=== PATIENT | female | born 1960 | race American Indian/Alaskan Native ===

== ENCOUNTER 2021-05-29 11:36 | Emergency (ER) | payer MEDICAID ==
[2021-05-29 12:24] VITALS: BP 140/79
--- NOTE | 2021-05-29 12:50 | Emergency Department Report ---
ED Extremity Problem HPI - General Chief complaint: Extremity Injury, Lower Stated complaint: FOOT AND ANKLE PAIN Time Seen by Provider: 05/29/21 12:45 Source: patient Mode of arrival: Ambulatory Limitations: No Limitations - History of Present Illness Initial comments: 61-year-old -[place]i female with a history of lupus presents to the emergency room for 2-week history of right lower and left lower ankle and foot pain and mild swelling to the right ankle. Patient states that she does not recall any injury or trauma. She states that the pain is worse when she walks. Patient states that the pain feels like when you hit your funny bone. Patient states she is currently on Percocet that is prescribed by her primary care provider Dr. Escalera. Patient reports she was being seen by a footwear stitcher but has not seen them since March. Patient is accompanied by retail personal banker Complaint: joint paint Onset/Timin -: week(s) Location: right, bilateral lower extremity History of Same: No -: Yes arthralgia Severity scale (0 -10): 6 Quality: other (Tingling) Consistency: intermittent Improves with: nothing Associated Symptoms: denies other symptoms - Related Data Previous Rx's Medication Instructions Recorded Last Taken Type Hydrocortisone 1% [Hydrocortisone 1 applicatio TP TID 7 Days #1 tube 07/19/19 Unknown Rx 1% CREAM] hydrOXYzine PAMOATE [Vistaril] 50 mg PO Q6HR PRN #20 capsule 07/19/19 Unknown Rx Allergies Allergy/AdvReac Type Severity Reaction Status Date / Time diphenhydramine Allergy Rash Verified 07/19/19 13:44 [From Benadryl] ED Review of Systems ROS: Stated complaint: FOOT AND ANKLE PAIN Other details as noted in HPI Comment: All other systems reviewed and negative ED Past Medical Hx - Past Medical History Hx Hypertension: Yes Hx CVA: Yes (MEMORY LOSS) Hx Diabetes: Yes Additional medical history: abd cancer- right c/w infusiport, LUPUS, ELEVATED CHOLESTEROL, HYPOTHYROIDISM - Surgical History Hx Open Heart Surgery: Yes (1997) Additional Surgical History: hysterectomy r/t cancer, , BREAST REDUCTION, TUMMY TUCK, - Social History Smoking Status: Never Smoker Substance Use Type: None - Medications Home Medications: Home Medications Medication Instructions Recorded Confirmed Last Taken Type Hydrocortisone 1% [Hydrocortisone 1 applicatio TP TID 7 Days #1 tube 07/19/19 Unknown Rx 1% CREAM] hydrOXYzine PAMOATE [Vistaril] 50 mg PO Q6HR PRN #20 capsule 07/19/19 Unknown Rx ED Physical Exam - General Limitations: No Limitations General appearance: alert, in no apparent distress - Head Head exam: Present: atraumatic, normocephalic - Eye Eye exam: Present: normal appearance - ENT ENT exam: Present: mucous membranes moist - Neck Neck exam: Present: normal inspection - Respiratory Respiratory exam: Present: normal lung sounds bilaterally. Absent: respiratory distress - Cardiovascular Cardiovascular Exam: Present: regular rate, normal rhythm. Absent: systolic murmur, diastolic murmur, rubs, gallop - GI/Abdominal GI/Abdominal exam: Present: soft, normal bowel sounds - Extremities Exam Extremities exam: Present: normal inspection, full ROM, tenderness (Bilateral), normal capillary refill. Absent: pedal edema, joint swelling, calf tenderness - Back Exam Back exam: Present: normal inspection - Neurological Exam Neurological exam: Present: alert, oriented X3 - Psychiatric Psychiatric exam: Present: normal affect, normal mood - Skin Skin exam: Present: warm, dry, intact, normal color. Absent: rash ED Course Vital Signs 05/29/21 12:21 Temperature 98.3 F Pulse Rate 108 H Respiratory 16 Rate Blood Pressure 140/79 O2 Sat by Pulse 100 Oximetry ED Medical Decision Making - Medical Decision Making 61-year-old -S[place]i female with a history of lupus presents to the emergency room for 2-week history of right lower and left lower ankle and foot pain and mild swelling to the right ankle. Patient states that she does not recall any injury or trauma. She states that the pain is worse when she walks. Patient states that the pain feels like when you hit your funny bone. Patient states she is currently on Percocet that is prescribed by her primary care provider Dr. Escalera. Patient reports she was being seen by a footwear stitcher but has not seen them since March. Patient is accompanied by retail personal banker. Discussed with patient that she should follow-up with her primary care provider I will refer her to several podiatrists. Patient verbalized understanding Critical care attestation.: If time is entered above; I have spent that time in minutes in the direct care of this critically ill patient, excluding procedure time. ED Disposition Clinical Impression: Tingling of both feet Disposition: / SELF CARE / HOMELESS Is pt being admited?: No Does the pt Need Aspirin: No Condition: Stable Instructions: Peripheral Neuropathy Additional Instructions: Please continue with your chronic pain medication and to follow-up with a clinical document improvement educator or footwear stitcher and your primary care provider. Referrals: CIRILO GARCIA DPM [Staff Physician] - 3-5 Days [facility] [Provider Group] - 3-5 Days Time of Disposition: 12:51
== END 2021-05-29 14:37 | disposition home or self-care (01) ==
LOC: ED 11:36
DX: R20.2 Paresthesia of skin (principal); Z88.8 Allergy status to other drugs, medicaments and biological substances; I10 Essential (primary) hypertension
CPT/HCPCS: 99282

== ENCOUNTER 2021-09-20 00:55 | Inpatient (IN) | payer MEDICAID ==
--- NOTE | 2021-09-20 01:39 | Emergency Department Report ---
ED Altered Mental Status HPI - General Chief Complaint: Altered Mental Status Stated Complaint: AMS Source: EMS Mode of arrival: Stretcher Limitations: No Limitations - History of Present Illness Initial Comments: This patient presented to the emergency department for evaluation of altered mental status. The patient was admitted to the hospital on 09/12/2021 with a diagnosis of acute metabolic encephalopathy, cerebral debility and weakness, hypertension, type 2 diabetes hypercalcemia hyperkalemia severe protein caloric malnutrition. According to EMS the condition was pretty much the same since she was discharged from the hospital according to the patient's family. I reviewed the patient's information it would appear that she did not fill her prescriptions MD Complaint: altered mental status, decreased responsiveness - Related Data Home Medications Medication Instructions Recorded Confirmed Last Taken AtorvaSTATin [Lipitor] 20 mg PO QHS 09/12/21 09/20/21 Unknown Fluticasone [Flonase] 1 spray BN DAILY 09/12/21 09/20/21 Unknown Gabapentin 300 mg PO BID 09/12/21 09/20/21 Unknown Insulin Aspart [Insulin Aspart 18 unit SQ TID 09/12/21 09/20/21 Unknown Flexpen] Insulin Glargine,Hum.rec.anlog 45 unit SQ QHS 09/12/21 09/20/21 Unknown [Lantus Solostar] Levothyroxine [Synthroid] 25 mcg PO QAM 09/12/21 09/20/21 Unknown Losartan [Cozaar] 100 mg PO QDAY 09/12/21 09/20/21 Unknown Omeprazole 40 mg PO DAILY 09/12/21 09/20/21 Unknown Oxybutynin [Ditropan] 5 mg PO BID 09/12/21 09/20/21 Unknown Saxagliptin HCl [Onglyza] 5 mg PO DAILY 09/12/21 09/20/21 Unknown allopurinoL [Zyloprim] 100 mg PO QDAY 09/12/21 09/20/21 Unknown hydrOXYzine PAMOATE [Vistaril] 25 mg PO HS PRN 09/12/21 09/20/21 Unknown traZODone [Desyrel] 50 mg PO QHS 09/12/21 09/20/21 Unknown Albuterol Mdi (or & Nicu Only) 1 puff IH Q6H PRN 09/14/21 09/20/21 Unknown [ProAir HFA Inhaler] Buprenorphine [Butrans] 1 each TD QWEEK 09/14/21 09/20/21 Unknown Dapagliflozin Propanediol [Farxiga] 5 mg PO QDAY 09/14/21 09/20/21 Unknown Oxycodone HCl/Acetaminophen 1 each PO Q8H PRN 09/14/21 09/20/21 Unknown [Percocet 10/325 mg] Previous Rx's Medication Instructions Recorded Last Taken Type Aspirin [Aspirin BABY CHEW TAB] 81 mg PO QDAY #30 tab.chew 09/18/21 Unknown Rx Famotidine [Pepcid] 20 mg PO BID #30 tablet 09/18/21 Unknown Rx Hydralazine HCl 50 mg PO Q8H #90 09/18/21 Unknown Rx NIFEdipine XL [Procardia Xl] 30 mg PO Q12HR #60 tablet 09/18/21 Unknown Rx predniSONE [Deltasone] 20 mg PO QDAY #14 tablet 09/18/21 Unknown Rx Allergies Allergy/AdvReac Type Severity Reaction Status Date / Time diphenhydramine Allergy Rash/Hives Verified 09/14/21 13:58 [From Benadryl] and Sores on Face ED Review of Systems ROS: Stated complaint: AMS Other details as noted in HPI Comment: Unobtainable due to pts medical conditions ED Past Medical Hx - Past Medical History Hx Hypertension: Yes Hx CVA: Yes (MEMORY LOSS) Hx Diabetes: Yes Additional medical history: abd cancer- right c/w infusiport, LUPUS, ELEVATED CHOLESTEROL, HYPOTHYROIDISM - Surgical History Hx Open Heart Surgery: Yes (1997) Additional Surgical History: hysterectomy r/t cancer, , BREAST REDUCTION, TUMMY TUCK, - Social History Smoking Status: Never Smoker - Medications Home Medications: Home Medications Medication Instructions Recorded Confirmed Last Taken Type AtorvaSTATin [Lipitor] 20 mg PO QHS 09/12/21 09/20/21 Unknown History Fluticasone [Flonase] 1 spray BN DAILY 09/12/21 09/20/21 Unknown History Gabapentin 300 mg PO BID 09/12/21 09/20/21 Unknown History Insulin Aspart [Insulin Aspart 18 unit SQ TID 09/12/21 09/20/21 Unknown History Flexpen] Insulin Glargine,Hum.rec.anlog 45 unit SQ QHS 09/12/21 09/20/21 Unknown History [Lantus Solostar] Levothyroxine [Synthroid] 25 mcg PO QAM 09/12/21 09/20/21 Unknown History Losartan [Cozaar] 100 mg PO QDAY 09/12/21 09/20/21 Unknown History Omeprazole 40 mg PO DAILY 09/12/21 09/20/21 Unknown History Oxybutynin [Ditropan] 5 mg PO BID 09/12/21 09/20/21 Unknown History Saxagliptin HCl [Onglyza] 5 mg PO DAILY 09/12/21 09/20/21 Unknown History allopurinoL [Zyloprim] 100 mg PO QDAY 09/12/21 09/20/21 Unknown History hydrOXYzine PAMOATE [Vistaril] 25 mg PO HS PRN 09/12/21 09/20/21 Unknown History traZODone [Desyrel] 50 mg PO QHS 09/12/21 09/20/21 Unknown History Albuterol Mdi (or & Nicu Only) 1 puff IH Q6H PRN 09/14/21 09/20/21 Unknown History [ProAir HFA Inhaler] Buprenorphine [Butrans] 1 each TD QWEEK 09/14/21 09/20/21 Unknown History Dapagliflozin Propanediol [Farxiga] 5 mg PO QDAY 09/14/21 09/20/21 Unknown History Oxycodone HCl/Acetaminophen 1 each PO Q8H PRN 09/14/21 09/20/21 Unknown History [Percocet 10/325 mg] Aspirin [Aspirin BABY CHEW TAB] 81 mg PO QDAY #30 tab.chew 09/18/21 09/20/21 Unknown Rx Famotidine [Pepcid] 20 mg PO BID #30 tablet 09/18/21 09/20/21 Unknown Rx Hydralazine HCl 50 mg PO Q8H #90 09/18/21 09/20/21 Unknown Rx NIFEdipine XL [Procardia Xl] 30 mg PO Q12HR #60 tablet 09/18/21 09/20/21 Unknown Rx predniSONE [Deltasone] 20 mg PO QDAY #14 tablet 09/18/21 09/20/21 Unknown Rx ED Physical Exam - General Limitations: No Limitations General appearance: lethargic - Head Head exam: Present: atraumatic, normocephalic - Eye Eye exam: Present: normal appearance, PERRL, EOMI - ENT ENT exam: Present: mucous membranes dry - Neck Neck exam: Present: normal inspection. Absent: tenderness, meningismus - Respiratory Respiratory exam: Present: normal lung sounds bilaterally. Absent: respiratory distress, wheezes, rales - Cardiovascular Cardiovascular Exam: Present: regular rate - GI/Abdominal GI/Abdominal exam: Present: soft, distended. Absent: tenderness ED Course Vital Signs 09/20/21 09/20/21 09/20/21 00:58 01:18 01:30 Temperature 98.2 F Pulse Rate 98 H 103 H 99 H Respiratory 16 16 21 Rate Blood Pressure 164/92 Blood Pressure 183/104 [Left] O2 Sat by Pulse 98 96 95 Oximetry 09/20/21 09/20/21 09/20/21 01:52 01:56 02:01 Temperature 97.9 F Pulse Rate 101 H 107 H 102 H Respiratory 23 16 21 Rate Blood Pressure 160/100 Blood Pressure 160/100 [Left] O2 Sat by Pulse 97 97 97 Oximetry 09/20/21 09/20/21 09/20/21 02:15 02:31 02:45 Temperature 98.7 F Pulse Rate 99 H 97 H Respiratory 17 23 15 Rate Blood Pressure 145/95 154/91 153/78 Blood Pressure [Left] O2 Sat by Pulse 97 97 99 Oximetry 09/20/21 09/20/21 09/20/21 03:01 03:15 03:31 Temperature Pulse Rate 99 H 101 H 99 H Respiratory 19 16 21 Rate Blood Pressure 164/86 164/86 164/86 Blood Pressure [Left] O2 Sat by Pulse 96 98 96 Oximetry 09/20/21 09/20/21 09/20/21 03:45 04:01 04:15 Temperature Pulse Rate 101 H 96 H 100 H Respiratory 21 20 21 Rate Blood Pressure 164/86 164/86 164/86 Blood Pressure [Left] O2 Sat by Pulse 95 94 Oximetry 09/20/21 09/20/21 09/20/21 04:31 04:45 04:57 Temperature 98.9 F Pulse Rate 98 H 99 H 99 H Respiratory 22 19 21 Rate Blood Pressure 164/86 187/99 187/99 Blood Pressure [Left] O2 Sat by Pulse 97 98 98 Oximetry 09/20/21 09/20/21 09/20/21 05:01 05:11 05:21 Temperature Pulse Rate 98 H 96 H 96 H Respiratory 24 15 18 Rate Blood Pressure 189/105 185/95 181/91 Blood Pressure [Left] O2 Sat by Pulse 97 96 99 Oximetry 09/20/21 09/20/21 09/20/21 05:31 05:41 05:51 Temperature Pulse Rate 99 H 95 H 96 H Respiratory 15 19 22 Rate Blood Pressure 194/89 194/94 191/101 Blood Pressure [Left] O2 Sat by Pulse 97 97 99 Oximetry 09/20/21 09/20/21 09/20/21 06:01 06:11 06:21 Temperature Pulse Rate 99 H 98 H 97 H Respiratory 13 19 22 Rate Blood Pressure 191/101 191/101 191/101 Blood Pressure [Left] O2 Sat by Pulse 96 93 95 Oximetry 09/20/21 09/20/21 09/20/21 06:31 06:41 06:51 Temperature Pulse Rate 98 H 100 H Respiratory 19 20 14 Rate Blood Pressure 191/101 191/101 191/101 Blood Pressure [Left] O2 Sat by Pulse 97 96 98 Oximetry 09/20/21 09/20/21 09/20/21 07:01 07:11 07:21 Temperature Pulse Rate 98 H 98 H 100 H Respiratory 15 22 11 L Rate Blood Pressure 191/101 191/101 191/101 Blood Pressure [Left] O2 Sat by Pulse 98 95 99 Oximetry 09/20/21 09/20/21 09/20/21 07:31 07:41 07:46 Temperature Pulse Rate 90 95 H 90 Respiratory 19 15 24 Rate Blood Pressure 191/101 191/101 Blood Pressure 160/88 [Left] O2 Sat by Pulse 96 99 98 Oximetry 09/20/21 09/20/21 09/20/21 07:51 08:01 08:11 Temperature Pulse Rate 97 H 96 H 94 H Respiratory 17 22 18 Rate Blood Pressure 160/88 160/88 160/88 Blood Pressure [Left] O2 Sat by Pulse 97 96 96 Oximetry 09/20/21 09/20/21 09/20/21 08:21 08:31 08:41 Temperature Pulse Rate 95 H 102 H 99 H Respiratory 25 H 19 14 Rate Blood Pressure 160/88 160/88 160/88 Blood Pressure [Left] O2 Sat by Pulse 96 97 97 Oximetry 09/20/21 09/20/21 09/20/21 08:51 09:01 09:11 Temperature Pulse Rate 100 H 98 H 99 H Respiratory 12 14 17 Rate Blood Pressure 160/88 160/88 160/88 Blood Pressure [Left] O2 Sat by Pulse 98 97 96 Oximetry 09/20/21 09/20/21 09/20/21 09:18 09:21 09:31 Temperature 98 F Pulse Rate 102 H Respiratory 24 0 L 0 L Rate Blood Pressure 153/97 153/97 Blood Pressure 158/87 [Left] O2 Sat by Pulse 98 95 97 Oximetry 09/20/21 09:41 Temperature Pulse Rate Respiratory 0 L Rate Blood Pressure 153/97 Blood Pressure [Left] O2 Sat by Pulse 98 Oximetry - Lab Data Result diagrams: 09/20/21 01:44 09/20/21 01:44 Lab Results 09/20/21 09/20/21 09/20/21 Range/Units 01:44 01:44 01:44 WBC 15.5 H (4.5-11.0) K/mm3 RBC 5.64 H (3.65-5.03) M/mm3 Hgb 14.4 H (10.1-14.3) gm/dl Hct 46.1 H (30.3-42.9) % MCV 82 (79-97) fl MCH 26 L (28-32) pg MCHC 31 (30-34) % RDW 14.5 (13.2-15.2) % Plt Count 375 (140-440) K/mm3 Lymph % (Auto) 7.1 L (13.4-35.0) % [place] % (Auto) 10.5 H (0.0-7.3) % Eos % (Auto) 0.1 (0.0-4.3) % Baso % (Auto) 0.6 (0.0-1.8) % Lymph # (Auto) 1.1 L (1.2-5.4) K/mm3 [place] # (Auto) 1.6 H (0.0-0.8) K/mm3 Eos # (Auto) 0.0 (0.0-0.4) K/mm3 Baso # (Auto) 0.1 (0.0-0.1) K/mm3 Seg Neutrophils % 81.7 H (40.0-70.0) % Seg Neutrophils # 12.7 H (1.8-7.7) K/mm3 APTT (24.2-36.6) Sec. Sodium 145 (137-145) mmol/L Potassium 4.0 (3.6-5.0) mmol/L Chloride 106.3 (98-107) mmol/L Carbon Dioxide 29 (22-30) mmol/L Anion Gap 14 mmol/L BUN 61 H (7-17) mg/dL Creatinine 1.4 H (0.6-1.2) mg/dL Estimated GFR 46 ml/min BUN/Creatinine Ratio 44 % Glucose 139 H (65-100) mg/dL Lactic Acid 1.70 (0.7-2.0) mmol/L Calcium 17.1 H* (8.4-10.2) mg/dL Total Bilirubin 0.50 (0.1-1.2) mg/dL AST 81 H (5-40) units/L ALT 23 (7-56) units/L Alkaline Phosphatase 174 H (35-129) units/L Troponin T (0.00-0.029) ng/mL Total Protein 8.0 (6.3-8.2) g/dL Albumin 2.7 L (3.9-5) g/dL Albumin/Globulin Ratio 0.5 % Urine Color (Yellow) Urine Turbidity (Clear) Urine pH (5.0-7.0) Ur Specific [place] (1.003-1.030) Urine Protein (Negative) mg/dL Urine Glucose (UA) (Negative) mg/dL Urine Ketones (Negative) mg/dL Urine Blood (Negative) Urine Nitrite (Negative) Urine Bilirubin (Negative) Urine Urobilinogen (<2.0) mg/dL Ur Leukocyte Esterase (Negative) Urine WBC (Auto) (0.0-6.0) /HPF Urine RBC (Auto) (0.0-6.0) /HPF U Epithel Cells (Auto) (0-13.0) /HPF Urine Bacteria (Auto) (Negative) /HPF Urine WBC Clumps /HPF Hyaline Casts /LPF Urine Mucus /HPF Urine Yeast (Budding) /HPF Salicylates (2.8-20.0) mg/dL Urine Opiates Screen Urine Methadone Screen Acetaminophen (10.0-30.0) ug/mL Ur Barbiturates Screen Ur Phencyclidine Scrn Ur Amphetamines Screen U Benzodiazepines Scrn Urine Cocaine Screen U Marijuana (THC) Screen Drugs of Abuse Note 09/20/21 09/20/21 09/20/21 Range/Units 01:44 01:44 01:44 WBC (4.5-11.0) K/mm3 RBC (3.65-5.03) M/mm3 Hgb (10.1-14.3) gm/dl Hct (30.3-42.9) % MCV (79-97) fl MCH (28-32) pg MCHC (30-34) % RDW (13.2-15.2) % Plt Count (140-440) K/mm3 Lymph % (Auto) (13.4-35.0) % Rolette % (Auto) (0.0-7.3) % Eos % (Auto) (0.0-4.3) % Baso % (Auto) (0.0-1.8) % Lymph # (Auto) (1.2-5.4) K/mm3 Rolette # (Auto) (0.0-0.8) K/mm3 Eos # (Auto) (0.0-0.4) K/mm3 Baso # (Auto) (0.0-0.1) K/mm3 Seg Neutrophils % (40.0-70.0) % Seg Neutrophils # (1.8-7.7) K/mm3 APTT 27.3 (24.2-36.6) Sec. Sodium (137-145) mmol/L Potassium (3.6-5.0) mmol/L Chloride (98-107) mmol/L Carbon Dioxide (22-30) mmol/L Anion Gap mmol/L BUN (7-17) mg/dL Creatinine (0.6-1.2) mg/dL Estimated GFR ml/min BUN/Creatinine Ratio % Glucose (65-100) mg/dL Lactic Acid (0.7-2.0) mmol/L Calcium (8.4-10.2) mg/dL Total Bilirubin (0.1-1.2) mg/dL AST (5-40) units/L ALT (7-56) units/L Alkaline Phosphatase (35-129) units/L Troponin T < 0.010 (0.00-0.029) ng/mL Total Protein (6.3-8.2) g/dL Albumin (3.9-5) g/dL Albumin/Globulin Ratio % Urine Color (Yellow) Urine Turbidity (Clear) Urine pH (5.0-7.0) Ur Specific [place] (1.003-1.030) Urine Protein (Negative) mg/dL Urine Glucose (UA) (Negative) mg/dL Urine Ketones (Negative) mg/dL Urine Blood (Negative) Urine Nitrite (Negative) Urine Bilirubin (Negative) Urine Urobilinogen (<2.0) mg/dL Ur Leukocyte Esterase (Negative) Urine WBC (Auto) (0.0-6.0) /HPF Urine RBC (Auto) (0.0-6.0) /HPF U Epithel Cells (Auto) (0-13.0) /HPF Urine Bacteria (Auto) (Negative) /HPF Urine WBC Clumps /HPF Hyaline Casts /LPF Urine Mucus /HPF Urine Yeast (Budding) /HPF Salicylates < 0.3 L (2.8-20.0) mg/dL Urine Opiates Screen Urine Methadone Screen Acetaminophen (10.0-30.0) ug/mL Ur Barbiturates Screen Ur Phencyclidine Scrn Ur Amphetamines Screen U Benzodiazepines Scrn Urine Cocaine Screen U Marijuana (THC) Screen Drugs of Abuse Note 09/20/21 09/20/21 09/20/21 Range/Units 01:44 04:47 04:47 WBC (4.5-11.0) K/mm3 RBC (3.65-5.03) M/mm3 Hgb (10.1-14.3) gm/dl Hct (30.3-42.9) % MCV (79-97) fl MCH (28-32) pg MCHC (30-34) % RDW (13.2-15.2) % Plt Count (140-440) K/mm3 Lymph % (Auto) (13.4-35.0) % Rolette % (Auto) (0.0-7.3) % Eos % (Auto) (0.0-4.3) % Baso % (Auto) (0.0-1.8) % Lymph # (Auto) (1.2-5.4) K/mm3 Rolette # (Auto) (0.0-0.8) K/mm3 Eos # (Auto) (0.0-0.4) K/mm3 Baso # (Auto) (0.0-0.1) K/mm3 Seg Neutrophils % (40.0-70.0) % Seg Neutrophils # (1.8-7.7) K/mm3 APTT (24.2-36.6) Sec. Sodium (137-145) mmol/L Potassium (3.6-5.0) mmol/L Chloride (98-107) mmol/L Carbon Dioxide (22-30) mmol/L Anion Gap mmol/L BUN (7-17) mg/dL Creatinine (0.6-1.2) mg/dL Estimated GFR ml/min BUN/Creatinine Ratio % Glucose (65-100) mg/dL Lactic Acid (0.7-2.0) mmol/L Calcium (8.4-10.2) mg/dL Total Bilirubin (0.1-1.2) mg/dL AST (5-40) units/L ALT (7-56) units/L Alkaline Phosphatase (35-129) units/L Troponin T (0.00-0.029) ng/mL Total Protein (6.3-8.2) g/dL Albumin (3.9-5) g/dL Albumin/Globulin Ratio % Urine Color Yellow (Yellow) Urine Turbidity Cloudy (Clear) Urine pH 6.0 (5.0-7.0) Ur Specific [place] 1.011 (1.003-1.030) Urine Protein >500 (Negative) mg/dL Urine Glucose (UA) 150 (Negative) mg/dL Urine Ketones Neg (Negative) mg/dL Urine Blood Sm (Negative) Urine Nitrite Neg (Negative) Urine Bilirubin Neg (Negative) Urine Urobilinogen < 2.0 (<2.0) mg/dL Ur Leukocyte Esterase Lg (Negative) Urine WBC (Auto) 182.0 H (0.0-6.0) /HPF Urine RBC (Auto) 13.0 (0.0-6.0) /HPF U Epithel Cells (Auto) 2.0 (0-13.0) /HPF Urine Bacteria (Auto) 4+ (Negative) /HPF Urine WBC Clumps 3+ /HPF Hyaline Casts 4 /LPF Urine Mucus Few /HPF Urine Yeast (Budding) 3+ /HPF Salicylates (2.8-20.0) mg/dL Urine Opiates Screen Negative Urine Methadone Screen Negative Acetaminophen 5.0 L (10.0-30.0) ug/mL Ur Barbiturates Screen Negative Ur Phencyclidine Scrn Negative Ur Amphetamines Screen Negative U Benzodiazepines Scrn Negative Urine Cocaine Screen Negative U Marijuana (THC) Screen Negative Drugs of Abuse Note Disclamer - EKG Data EKG shows normal: QRS complexes Rate: tachycardia Interpretation: nonspecific ST-T wave chari - Radiology Data Radiology results: report reviewed, image reviewed I reviewed the CT and chest x-ray as well as the radiologist interpretation. No acute pathology was identified on both studies. - Medical Decision Making The patient's ionized calcium was calculated at 18.3. The labs inclusive of the CBC and renal function studies were consistent with dehydration. I had the nurse place a Vega catheter on the patient in order to monitor her urine output. The decision was made to aggressively treat the patient with fluid hydration. I spoke with the hospitalist who agreed to admit the patient. I also spoke with the on-call l tacker at the request of the hospitalist and he agreed to evaluate the patient. Critical Care Time: Yes Critical care time in (mins) excluding proc time.: 46 Critical care attestation.: If time is entered above; I have spent that time in minutes in the direct care of this critically ill patient, excluding procedure time. ED Disposition Clinical Impression: Hypercalcemia, Dehydration, Weakness Disposition: 09 ADMITTED INPATIENT Is pt being admited?: Yes Condition: Fair
[2021-09-20 02:05] LABS: Basophils # (Auto) 0.1 K/mm3 (0.0-0.1); Basophils % (Auto) 0.6 % (0.0-1.8); Eosinophils % (Auto) 0.1 % (0.0-4.3); Hematocrit 46.1 % (30.3-42.9); Hemoglobin 14.4 gm/dl (10.1-14.3); Lymphocytes # (Auto) 1.1 K/mm3 (1.2-5.4); Lymphocytes % (Auto) 7.1 % (13.4-35.0); Mean Corpuscular HGB Conc 31 % (30-34); Mean Corpuscular Volume 82 fl (79-97); Monocytes # (Auto) 1.6 K/mm3 (0.0-0.8); Monocytes % (Auto) 10.5 % (0.0-7.3); Platelet Count 375 K/mm3 (140-440); Red Blood Count 5.64 M/mm3 (3.65-5.03); Red Cell Distribution Width 14.5 % (13.2-15.2)
--- NOTE | 2021-09-20 02:12 | Cat Scan Report ---
CT HEAD WITHOUT CONTRAST INDICATION / CLINICAL INFORMATION: Altered Mental Status. TECHNIQUE: CT head was performed without administration of intravenous contrast. All CT scans at this location are performed using CT dose reduction for ALARA by means of automated exposure control. COMPARISON: CT brain 09/11/2021 FINDINGS: CEREBRAL PARENCHYMA: Generalized cortical and central atrophy. Periventricular regions of white matte r hypoattenuation compatible with microvascular ischemia. HEMORRHAGE: None. EXTRA-AXIAL SPACES: Normal in size and morphology for the patient's age. VENTRICULAR SYSTEM: Normal in size and morphology for the patient's age. MIDLINE SHIFT / HERNIATION: None. CEREBELLUM / BRAINSTEM: No significant abnormality. ORBITS: Normal as visualized. SOFT TISSUES: No significant abnormality. SKULL: No significant abnormality. PARANASAL SINUSES / MASTOID AIR CELLS: Normal as visualized. ADDITIONAL FINDINGS: None. IMPRESSION: 1. No acute intracranial abnormality. Stable senescent changes. Signer Name: Nicola Charles II, MD Signed: 09/20/2021 2:07 AM Workstation Name: [id number]
[2021-09-20] MEDS ORDERED: SODIUM CHLORIDE 0.9% 1000 ML 1,000 ML ONE (02:24)
[2021-09-20 02:28] LABS: Albumin 2.7 g/dL (3.9-5)
[2021-09-20] MEDS ORDERED: SODIUM CHLORIDE 0.9% 1000 ML 1,000 ML IV ONE ×2 (02:30→04:12)
[2021-09-20 02:34] LABS: Calcium 17.1 mg/dL (8.4-10.2)
[2021-09-20] MEDS ORDERED: LORazepam 2 MG/ML VIAL ONE (04:40)
--- NOTE | 2021-09-20 04:48 | XRay Report ---
CHEST 1 VIEW INDICATION / CLINICAL INFORMATION: Altered mental status. COMPARISON: Chest x-ray 09/11/2021 FINDINGS: SUPPORT DEVICES: None. HEART / MEDIASTINUM: Cardiomediastinal silhouette and postoperative changes of sternotomy appear stab le. LUNGS / PLEURA: The lungs are clear. No pneumothorax. BONES: No significant osseous abnormality. ADDITIONAL FINDINGS: No significant additional findings. IMPRESSION: 1. No active cardiopulmonary disease. Signer Name: Nicola Charles II, MD Signed: 09/20/2021 4:44 AM Workstation Name: [id number]
[2021-09-20 04:59] LABS: Bacteria,Urine 4+ /HPF (Negative); Bilirubin,Urine NEG (Negative); Blood,Urine SM (Negative); Color,Urine Yellow (Yellow); Hyaline Casts,Urine 4 /LPF; Mucus,Urine FEW /HPF; Urobilinogen,Urine < 2.0 mg/dL (<2.0)
[2021-09-20 05:00] LABS: Protein,Urine >500 mg/dL (Negative)
[2021-09-20 05:06] LABS: Amphetamine Screen,Urine Negative; Benzodiazepines Screen,Urine Negative; Cannabinoid Screen,Urine Negative; Cocaine Screen,Urine Negative; Methadone Screen,Urine Negative; Opiate Screen,Urine Negative
[2021-09-20] MEDS ORDERED: ALBUTEROL 8.5 GM MDI INHALATION IH PRN (07:27)
[2021-09-20] MEDS ORDERED: NON-FORMULARY EACH (Hydralazine Hcl [Hydralazine Hcl] 50 MG Tablet) PO SCH (07:30)
[2021-09-20] MEDS ORDERED: SODIUM CHLORIDE 0.9% 1000 ML 1,000 ML IV SCH (07:30)
[2021-09-20] MEDS ORDERED: DEXTROSE 50% IN WATER (25GM) 50 ML SYRINGE IV PRN (07:30)
[2021-09-20] MEDS: INSULIN LISPRO 100 UNIT/ML SUB-Q SCH ×4 (07:50→22:00)
[2021-09-20] MEDS ORDERED: ACETAMINOPHEN 325 MG TAB PO PRN (08:00)
[2021-09-20] MEDS ORDERED: NON-FORMULARY EACH (Insulin Aspart [Insulin Aspart Flexpen] 100 UNIT/ML Insuln.Pen) SQ SCH (08:00)
[2021-09-20] MEDS ORDERED: DEXTROSE 10% *Hypoglycemia IV PRN (08:00)
[2021-09-20] MEDS ORDERED: ALBUTEROL 2.5 MG/3 ML NEBU IH PRN (08:00)
[2021-09-20] MEDS ORDERED: NALOXONE 0.4 MG/1 ML INJ IV PRN (08:00)
[2021-09-20] MEDS ORDERED: ONDANSETRON 4 MG/2 ML INJ IV PRN (08:00)
[2021-09-20] MEDS ORDERED: oxyCODONE /ACETAMINOPHEN 5-325MG TAB PO PRN (09:00)
[2021-09-20] MEDS ORDERED: CEFEPIME/NS 1 GM/100 ML 1 GM/100 ML BAG IV SCH (09:00)
[2021-09-20] MEDS ORDERED: DAPAGLIFLOZIN (NF) PROPANEDIOL 5 MG TAB PO SCH (10:00)
[2021-09-20] MEDS ORDERED: NON-FORMULARY EACH (Losartan [Cozaar] 100 MG Tablet) PO SCH (10:00)
[2021-09-20] MEDS ORDERED: FAMOTIDINE 20 MG TAB PO SCH (10:00)
[2021-09-20] MEDS ORDERED: SAXAGLIPTIN HCL 5 MG PO SCH (10:00)
[2021-09-20] MEDS ORDERED: NON-FORMULARY EACH (Omeprazole [Omeprazole] 40 MG Capsule.Dr) PO SCH (10:00)
--- NOTE | 2021-09-20 10:01 | History and Physical Report ---
History of Present Illness Date of examination: 09/20/21 Date of admission: 09/20/21 07:30 Chief complaint: Confusion History of present illness: Patient is a 61 year old female with a history of high blood pressure, diabetes, CVA, Abdominal CA s/p Chemotherapy, Hysterectomy, Recently discharged from the hospital following admission for confusion and failure to thrive returns today with complaints of confusion per family. Information was obtained from ED documentation and family due to patients altered mental status. Family reports that her condition had not changed since discharge from the hospital. She did not fill her prescriptions. She during my examination only complains of back pain but could not specify where he was. She was not oriented to person place or time. I did discuss with the who informed me of her history of abdominal cancer although documented also stated that the patient finished chemotherapy within the last year. But could not give me much further information about this. I did notice that the plan for discharge with hospice when asked if this was secondary to concern about end-of-life he said neurologist for additional resources. He did not report that she had any bladder/bowel retention incontinence and saddle anesthesia. She lives at home with family. Review of last admission records shows no pathology on imaging studies. Past History Past Medical History: diabetes, hypertension, hyperlipidemia, hypothyroidism, stroke, other (abd cancer- right c/w infusiport, LUPUS, ) Past Surgical History: , hysterectomy (r/t cancer,), Other ( BREAST REDUCTION, TUMMY TUCK,) Social history: full code Family history: no significant family history Medications and Allergies Allergies Allergy/AdvReac Type Severity Reaction Status Date / Time diphenhydramine Allergy Rash/Hives Verified 09/14/21 13:58 [From Benadryl] and Sores on Face Home Medications Medication Instructions Recorded Confirmed Last Taken Type AtorvaSTATin [Lipitor] 20 mg PO QHS 09/12/21 09/20/21 Unknown History Fluticasone [Flonase] 1 spray BN DAILY 09/12/21 09/20/21 Unknown History Gabapentin 300 mg PO BID 09/12/21 09/20/21 Unknown History Insulin Aspart [Insulin Aspart 18 unit SQ TID 09/12/21 09/20/21 Unknown History Flexpen] Insulin Glargine,Hum.rec.anlog 45 unit SQ QHS 09/12/21 09/20/21 Unknown History [Lantus Solostar] Levothyroxine [Synthroid] 25 mcg PO QAM 09/12/21 09/20/21 Unknown History Losartan [Cozaar] 100 mg PO QDAY 09/12/21 09/20/21 Unknown History Omeprazole 40 mg PO DAILY 09/12/21 09/20/21 Unknown History Oxybutynin [Ditropan] 5 mg PO BID 09/12/21 09/20/21 Unknown History Saxagliptin HCl [Onglyza] 5 mg PO DAILY 09/12/21 09/20/21 Unknown History allopurinoL [Zyloprim] 100 mg PO QDAY 09/12/21 09/20/21 Unknown History hydrOXYzine PAMOATE [Vistaril] 25 mg PO HS PRN 09/12/21 09/20/21 Unknown History traZODone [Desyrel] 50 mg PO QHS 09/12/21 09/20/21 Unknown History Albuterol Mdi (or & Nicu Only) 1 puff IH Q6H PRN 09/14/21 09/20/21 Unknown History [ProAir HFA Inhaler] Buprenorphine [Butrans] 1 each TD QWEEK 09/14/21 09/20/21 Unknown History Dapagliflozin Propanediol [Farxiga] 5 mg PO QDAY 09/14/21 09/20/21 Unknown History Oxycodone HCl/Acetaminophen 1 each PO Q8H PRN 09/14/21 09/20/21 Unknown History [Percocet 10/325 mg] Aspirin [Aspirin BABY CHEW TAB] 81 mg PO QDAY #30 tab.chew 09/18/21 09/20/21 Unknown Rx Famotidine [Pepcid] 20 mg PO BID #30 tablet 09/18/21 09/20/21 Unknown Rx Hydralazine HCl 50 mg PO Q8H #90 09/18/21 09/20/21 Unknown Rx NIFEdipine XL [Procardia Xl] 30 mg PO Q12HR #60 tablet 09/18/21 09/20/21 Unknown Rx predniSONE [Deltasone] 20 mg PO QDAY #14 tablet 09/18/21 09/20/21 Unknown Rx Active Meds: Active Medications Acetaminophen (Acetaminophen 325 Mg Tab) 650 mg PO Q4H PRN PRN Reason: Pain MILD(1-3)/Fever >100.5/AMES Albuterol (Albuterol 2.5 Mg/3 Ml Nebu) 2.5 mg IH Q4HRT PRN PRN Reason: Shortness Of Breath Allopurinol (Allopurinol 100 Mg Tab) 100 mg PO QDAY [facility] Aspirin (Aspirin 81 Mg Tab Chew) 81 mg PO QDAY [facility] Atorvastatin Calcium (Atorvastatin 20 Mg Tab) 20 mg PO QHS [facility] Dextrose (Dextrose 10% *Hypoglycemia) 0 ml IV PRN PRN PRN Reason: Hypoglycemia Fluticasone Propionate (Fluticasone Propionate Nasal [place] 16 Gm) 50 mcg NS DAILY [facility] Gabapentin (Gabapentin 300 Mg Cap) 300 mg PO BID [facility] Hydralazine HCl (Hydralazine 20 Mg/1 Ml Inj) 10 mg IV Q4H PRN PRN Reason: Hypertension Hydralazine HCl (Hydralazine 25 Mg Tab) 50 mg PO Q8HR [facility] Hydroxyzine Pamoate (Hydroxyzine Pamoate 25 Mg Cap) 25 mg PO HS PRN PRN Reason: Anxiety Sodium Chloride (Nacl 0.9% 1000 Ml) 1,000 mls @ 125 mls/hr IV DIRECT [facility] Cefepime HCl (Cefepime/Ns 2 Gm/100 Ml) 2 gm in 100 mls @ 200 mls/hr IV Q12H [facility]; Protocol Insulin Glargine (Insulin Glargine 100 Units/Ml) 45 units SUB-Q QHS [facility] Insulin Human Lispro (Insulin Lispro 100 Unit/Ml) 0 unit SUB-Q ACHS [facility]; Protocol Last Admin: 09/20/21 07:50 Dose: Not Given Levothyroxine Sodium (Levothyroxine 25 Mcg Tab) 25 mcg PO QAM@0600 [facility] Linagliptin (Linagliptin 5 Mg Tab) 5 mg PO QDDIAB [facility] Losartan Potassium (Losartan 50 Mg Tab) 100 mg PO QDAY [facility] Naloxone HCl (Naloxone 0.4 Mg/1 Ml Inj) 0.1 mg IV Q2MIN PRN PRN Reason: Res Rate </= 8 or 02 SAT < 92% Nifedipine (Nifedipine Xl 30 Mg Tab) 30 mg PO Q12HR [facility] Ondansetron HCl (Ondansetron 4 Mg/2 Ml Inj) 4 mg IV Q8H PRN PRN Reason: Nausea And Vomiting Oxybutynin Chloride (Oxybutynin 5 Mg Tab) 5 mg PO BID [facility] Oxycodone/Acetaminophen (Oxycodone /Acetaminophen 5-325mg Tab) 1 tab PO Q6H PRN PRN Reason: Pain, Moderate (4-6) Pantoprazole Sodium (Pantoprazole 40 Mg Tab) 40 mg PO DAILY [facility] Sodium Chloride (Sodium Chloride 0.9% 10 Ml Flush Syringe) 10 ml IV BID [facility] Sodium Chloride (Sodium Chloride 0.9% 10 Ml Flush Syringe) 10 ml IV PRN PRN PRN Reason: LINE FLUSH Trazodone HCl (Trazodone 50 Mg Tab) 50 mg PO QHS [facility] Review of Systems ROS unobtainable: due to mental status All systems: negative Constitutional: anorexia, fatigue, weakness, chronic pain Exam - Physical Exam Narrative exam: VITAL SIGNS: Reviewed. GENERAL: The patient appears normally developed, obese chronically ill-appearing vital signs as documented. HEAD: No signs of head trauma. EYES: Pupils are equal. Extraocular motions intact. EARS: Hearing grossly intact. MOUTH: Oropharynx is normal. Dry mucous membrane NECK: No adenopathy, no JVD. CHEST: Chest with clear breath sounds bilaterally. No wheezes, rales, or rhonchi. CARDIAC: Regular rate and rhythm. S1 and S2, without murmurs, gallops, or rubs. VASCULAR: No Edema. Peripheral pulses normal and equal in all extremities. ABDOMEN: Soft, non tender and non distended. No rebound or guarding, and no masses palpated. Bowel Sounds normal. MUSCULOSKELETAL: Good range of motion of all major joints. Extremities without clubbing, cyanosis or edema. NEUROLOGIC EXAM: Disoriented no focal sensory or strength deficits. Speech garbled and does not follow command PSYCHIATRIC: Mood flat SKIN: detail exam as documented in skin assessment - Constitutional Vitals: Temp Pulse Resp BP Pulse Ox 98 F 102 H 24 158/87 98 09/20/21 09:18 09/20/21 09:18 09/20/21 09:18 09/20/21 09:18 09/20/21 09:18 HEART Score - HEART Score Troponin: Troponin T < 0.010 ng/mL (0.00-0.029) 09/20/21 01:44 Results - Labs CBC & Chem 7: 09/20/21 01:44 09/20/21 01:44 Labs: Laboratory Last Values WBC 15.5 K/mm3 (4.5-11.0) H 09/20/21 01:44 RBC 5.64 M/mm3 (3.65-5.03) H 09/20/21 01:44 Hgb 14.4 gm/dl (10.1-14.3) H 09/20/21 01:44 Hct 46.1 % (30.3-42.9) H 09/20/21 01:44 MCV 82 fl (79-97) 09/20/21 01:44 MCH 26 pg (28-32) L 09/20/21 01:44 MCHC 31 % (30-34) 09/20/21 01:44 RDW 14.5 % (13.2-15.2) 09/20/21 01:44 Plt Count 375 K/mm3 (140-440) 09/20/21 01:44 Lymph % (Auto) 7.1 % (13.4-35.0) L 09/20/21 01:44 [place] % (Auto) 10.5 % (0.0-7.3) H 09/20/21 01:44 Eos % (Auto) 0.1 % (0.0-4.3) 09/20/21 01:44 Baso % (Auto) 0.6 % (0.0-1.8) 09/20/21 01:44 Lymph # (Auto) 1.1 K/mm3 (1.2-5.4) L 09/20/21 01:44 [place] # (Auto) 1.6 K/mm3 (0.0-0.8) H 09/20/21 01:44 Eos # (Auto) 0.0 K/mm3 (0.0-0.4) 09/20/21 01:44 Baso # (Auto) 0.1 K/mm3 (0.0-0.1) 09/20/21 01:44 Seg Neutrophils % 81.7 % (40.0-70.0) H 09/20/21 01:44 Seg Neutrophils # 12.7 K/mm3 (1.8-7.7) H 09/20/21 01:44 APTT 27.3 Sec. (24.2-36.6) 09/20/21 01:44 Sodium 145 mmol/L (137-145) 09/20/21 01:44 Potassium 4.0 mmol/L (3.6-5.0) 09/20/21 01:44 Chloride 106.3 mmol/L (98-107) 09/20/21 01:44 Carbon Dioxide 29 mmol/L (22-30) 09/20/21 01:44 Anion Gap 14 mmol/L 09/20/21 01:44 BUN 61 mg/dL (7-17) H 09/20/21 01:44 Creatinine 1.4 mg/dL (0.6-1.2) H 09/20/21 01:44 Estimated GFR 46 ml/min 09/20/21 01:44 BUN/Creatinine Ratio 44 % 09/20/21 01:44 Glucose 139 mg/dL (65-100) H 09/20/21 01:44 Lactic Acid 1.70 mmol/L (0.7-2.0) 09/20/21 01:44 Calcium 17.1 mg/dL (8.4-10.2) H* 09/20/21 01:44 Total Bilirubin 0.50 mg/dL (0.1-1.2) 09/20/21 01:44 AST 81 units/L (5-40) H 09/20/21 01:44 ALT 23 units/L (7-56) 09/20/21 01:44 Alkaline Phosphatase 174 units/L (35-129) H 09/20/21 01:44 Troponin T < 0.010 ng/mL (0.00-0.029) 09/20/21 01:44 Total Protein 8.0 g/dL (6.3-8.2) 09/20/21 01:44 Albumin 2.7 g/dL (3.9-5) L 09/20/21 01:44 Albumin/Globulin Ratio 0.5 % 09/20/21 01:44 TSH 1.400 mlU/mL (0.270-4.200) 09/20/21 07:46 Free T4 1.33 ng/dL (0.76-1.46) 09/20/21 07:46 PTH Intact 310.7 pg/mL (15-65) H 09/20/21 07:46 Urine Color Yellow (Yellow) 09/20/21 04:47 Urine Turbidity Cloudy (Clear) 09/20/21 04:47 Urine pH 6.0 (5.0-7.0) 09/20/21 04:47 Ur Specific [place] 1.011 (1.003-1.030) 09/20/21 04:47 Urine Protein >500 mg/dL (Negative) 09/20/21 04:47 Urine Glucose (UA) 150 mg/dL (Negative) 09/20/21 04:47 Urine Ketones Neg mg/dL (Negative) 09/20/21 04:47 Urine Blood Sm (Negative) 09/20/21 04:47 Urine Nitrite Neg (Negative) 09/20/21 04:47 Urine Bilirubin Neg (Negative) 09/20/21 04:47 Urine Urobilinogen < 2.0 mg/dL (<2.0) 09/20/21 04:47 Ur Leukocyte Esterase Lg (Negative) 09/20/21 04:47 Urine WBC (Auto) 182.0 /HPF (0.0-6.0) H 09/20/21 04:47 Urine RBC (Auto) 13.0 /HPF (0.0-6.0) 09/20/21 04:47 U Epithel Cells (Auto) 2.0 /HPF (0-13.0) 09/20/21 04:47 Urine Bacteria (Auto) 4+ /HPF (Negative) 09/20/21 04:47 Urine WBC Clumps 3+ /HPF 09/20/21 04:47 Hyaline Casts 4 /LPF 09/20/21 04:47 Urine Mucus Few /HPF 09/20/21 04:47 Urine Yeast (Budding) 3+ /HPF 09/20/21 04:47 Salicylates < 0.3 mg/dL (2.8-20.0) L 09/20/21 01:44 Urine Opiates Screen Negative 09/20/21 04:47 Urine Methadone Screen Negative 09/20/21 04:47 Acetaminophen 5.0 ug/mL (10.0-30.0) L 09/20/21 01:44 Ur Barbiturates Screen Negative 09/20/21 04:47 Ur Phencyclidine Scrn Negative 09/20/21 04:47 Ur Amphetamines Screen Negative 09/20/21 04:47 U Benzodiazepines Scrn Negative 09/20/21 04:47 Urine Cocaine Screen Negative 09/20/21 04:47 U Marijuana (THC) Screen Negative 09/20/21 04:47 Drugs of Abuse Note Disclamer 09/20/21 04:47 Blood Type B POSITIVE 09/20/21 08:00 Antibody Screen Negative 09/20/21 08:00 Microbiology: Microbiology 09/20/21 07:46 Peripheral/Venous Blood Culture - Preliminary Culture in Progress 09/20/21 07:46 Peripheral/Venous Blood Culture - Preliminary Culture in Progress Assessment and Plan Assessment and plan: Patient is a 61 year old female with a history of high blood pressure, diabetes, CVA, Abdominal CA s/p Chemotherapy, Hysterectomy, Recently discharged from the hospital following admission for confusion and failure to thrive returns today with complaints of confusion per family. Information was obtained from ED docume ntation and family due to patients altered mental status. Family reports that her condition had not changed since discharge from the hospital. She did not fill her prescriptions. She during my examination only complains of back pain but could not specify where he was. She was not oriented to person place or time. I did discuss with the who informed me of her history of abdominal cancer although documented also stated that the patient finished chemotherapy within the last year. But could not give me much further information about this. I did notice that the plan for discharge with hospice when asked if this was secondary to concern about end-of-life he said neurologist for additional resources. He did not report that she had any bladder/bowel retention incontinence and saddle anesthesia. She lives at home with family. Review of last admission records shows no pathology on imaging studies. CT head and chest x-ray also reviewed negative for acute pathology Acute metabolic encephalopathy Severe hypercalcemia, Acute kidney injury with vasomotor nephropathy Generalized weakness likely secondary to hypercalcemia Likely primary hyperparathyroidism Hypothyroidism Diabetes mellitus Hypertension History of CVA in the past with residual memory Severe protein calorie malnutrition Failure to thrive History of abdominal cancer status post chemotherapy Plan Admit to MedSur unit with remote telemetry Neurology consult Aggressive fluid resuscitation and recheck calcium Aspiration precaution I ordered a PTH which was significantly elevated over 300 as a result related to was primary hyperparathyroidism Discussed with marine equipment engineer will start patient on calcitonin Previous imaging studies include MRI of the brain 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 Imaging studies obtained recently was negative for acute pathology PT OT when more awake We will obtain an ultrasound of the abdomen possible evaluation of renal studies and also CT of abdomen and pelvis Resume insulin therapy monitor for hypoglycemia if not tolerating oral intake may need to change to D5 fluid. Continue appropriate home medication regimen DVT and GI prophylaxis Plan of care discussed in detail with the patient with the pharmacist and also with marine equipment engineer. Advance Directives: Yes Plan of care discussed with patient/family: Yes
--- NOTE | 2021-09-20 10:22 | Consultation ---
History of Present Illness - Reason for Consult Consult date: 09/20/21 acute renal failure, other - History of Present Illness The patient is a 61 year old female with a history of HTN, Diabetes, CVA, Abdominal CA s/p Chemotherapy, Hysterectomy, Recently discharged from the hospital following admission for confusion and failure to thrive who presented to [facility] ED 09/20/21 with AMS. Patient was not able to provide any history and there was no family member at the bedside. Information was obtained from prior documentation. Family reports that her condition had not changed since discharge from the hospital. She did not fill her prescriptions. Patient finished chemotherapy within the last year. No report of any bladder/bowel retention incontinence and saddle anesthesia. She lives at home with family. Labs notable for Creat 1.4, BUN 61 and Ca 17.1. Nephrology was consulted for treatment of LANDON and hypercalcemia. Past History Past Medical History: cancer, diabetes, hypertension, stroke Medications and Allergies Allergies Allergy/AdvReac Type Severity Reaction Status Date / Time diphenhydramine Allergy Rash/Hives Verified 09/14/21 13:58 [From Benadryl] and Sores on Face Home Medications Medication Instructions Recorded Confirmed Last Taken Type AtorvaSTATin [Lipitor] 20 mg PO QHS 09/12/21 09/20/21 Unknown History Fluticasone [Flonase] 1 spray BN DAILY 09/12/21 09/20/21 Unknown History Gabapentin 300 mg PO BID 09/12/21 09/20/21 Unknown History Insulin Aspart [Insulin Aspart 18 unit SQ TID 09/12/21 09/20/21 Unknown History Flexpen] Insulin Glargine,Hum.rec.anlog 45 unit SQ QHS 09/12/21 09/20/21 Unknown History [Lantus Solostar] Levothyroxine [Synthroid] 25 mcg PO QAM 09/12/21 09/20/21 Unknown History Losartan [Cozaar] 100 mg PO QDAY 09/12/21 09/20/21 Unknown History Omeprazole 40 mg PO DAILY 09/12/21 09/20/21 Unknown History Oxybutynin [Ditropan] 5 mg PO BID 09/12/21 09/20/21 Unknown History Saxagliptin HCl [Onglyza] 5 mg PO DAILY 09/12/21 09/20/21 Unknown History allopurinoL [Zyloprim] 100 mg PO QDAY 09/12/21 09/20/21 Unknown History hydrOXYzine PAMOATE [Vistaril] 25 mg PO HS PRN 09/12/21 09/20/21 Unknown History traZODone [Desyrel] 50 mg PO QHS 09/12/21 09/20/21 Unknown History Albuterol Mdi (or & Nicu Only) 1 puff IH Q6H PRN 09/14/21 09/20/21 Unknown History [ProAir HFA Inhaler] Buprenorphine [Butrans] 1 each TD QWEEK 09/14/21 09/20/21 Unknown History Dapagliflozin Propanediol [Farxiga] 5 mg PO QDAY 09/14/21 09/20/21 Unknown History Oxycodone HCl/Acetaminophen 1 each PO Q8H PRN 09/14/21 09/20/21 Unknown History [Percocet 10/325 mg] Aspirin [Aspirin BABY CHEW TAB] 81 mg PO QDAY #30 tab.chew 09/18/21 09/20/21 Unknown Rx Famotidine [Pepcid] 20 mg PO BID #30 tablet 09/18/21 09/20/21 Unknown Rx Hydralazine HCl 50 mg PO Q8H #90 09/18/21 09/20/21 Unknown Rx NIFEdipine XL [Procardia Xl] 30 mg PO Q12HR #60 tablet 09/18/21 09/20/21 Unknown Rx predniSONE [Deltasone] 20 mg PO QDAY #14 tablet 09/18/21 09/20/21 Unknown Rx Active Meds: Active Medications Acetaminophen (Acetaminophen 325 Mg Tab) 650 mg PO Q4H PRN PRN Reason: Pain MILD(1-3)/Fever >100.5/AMES Albuterol (Albuterol 2.5 Mg/3 Ml Nebu) 2.5 mg IH Q4HRT PRN PRN Reason: Shortness Of Breath Allopurinol (Allopurinol 100 Mg Tab) 100 mg PO QDAY [facility] Aspirin (Aspirin 81 Mg Tab Chew) 81 mg PO QDAY [facility] Atorvastatin Calcium (Atorvastatin 20 Mg Tab) 20 mg PO QHS [facility] Calcitonin [place] (Calcitonin,[place],Synthetic 400 Unit/2 Ml Inj Mdv) 400 unit IM Q12HR [facility] Dextrose (Dextrose 10% *Hypoglycemia) 0 ml IV PRN PRN PRN Reason: Hypoglycemia Fluticasone Propionate (Fluticasone Propionate Nasal [place] 16 Gm) 50 mcg NS DAILY [facility] Gabapentin (Gabapentin 300 Mg Cap) 300 mg PO BID [facility] Hydralazine HCl (Hydralazine 20 Mg/1 Ml Inj) 10 mg IV Q4H PRN PRN Reason: Hypertension Hydralazine HCl (Hydralazine 25 Mg Tab) 50 mg PO Q8HR [facility] Hydroxyzine Pamoate (Hydroxyzine Pamoate 25 Mg Cap) 25 mg PO HS PRN PRN Reason: Anxiety Sodium Chloride (Nacl 0.9% 1000 Ml) 1,000 mls @ 125 mls/hr IV DIRECT [facility] Cefepime HCl (Cefepime/Ns 2 Gm/100 Ml) 2 gm in 100 mls @ 200 mls/hr IV Q12H [facility]; Protocol Insulin Glargine (Insulin Glargine 100 Units/Ml) 45 units SUB-Q QHS [facility] Insulin Human Lispro (Insulin Lispro 100 Unit/Ml) 0 unit SUB-Q ACHS [facility]; Protocol Last Admin: 09/20/21 07:50 Dose: Not Given Levothyroxine Sodium (Levothyroxine 25 Mcg Tab) 25 mcg PO QAM@0600 [facility] Linagliptin (Linagliptin 5 Mg Tab) 5 mg PO QDDIAB [facility] Losartan Potassium (Losartan 50 Mg Tab) 100 mg PO QDAY [facility] Naloxone HCl (Naloxone 0.4 Mg/1 Ml Inj) 0.1 mg IV Q2MIN PRN PRN Reason: Res Rate </= 8 or 02 SAT < 92% Nifedipine (Nifedipine Xl 30 Mg Tab) 30 mg PO Q12HR [facility] Ondansetron HCl (Ondansetron 4 Mg/2 Ml Inj) 4 mg IV Q8H PRN PRN Reason: Nausea And Vomiting Oxybutynin Chloride (Oxybutynin 5 Mg Tab) 5 mg PO BID [facility] Oxycodone/Acetaminophen (Oxycodone /Acetaminophen 5-325mg Tab) 1 tab PO Q6H PRN PRN Reason: Pain, Moderate (4-6) Pantoprazole Sodium (Pantoprazole 40 Mg Tab) 40 mg PO DAILY [facility] Sodium Chloride (Sodium Chloride 0.9% 10 Ml Flush Syringe) 10 ml IV BID [facility] Sodium Chloride (Sodium Chloride 0.9% 10 Ml Flush Syringe) 10 ml IV PRN PRN PRN Reason: LINE FLUSH Trazodone HCl (Trazodone 50 Mg Tab) 50 mg PO QHS [facility] Review of Systems ROS unobtainable: due to mental status Exam - Vital Signs Vital signs: Vital Signs Temp Pulse Resp BP Pulse Ox 98.2 F 98 H 16 183/104 98 09/20/21 00:58 09/20/21 00:58 09/20/21 00:58 09/20/21 00:58 09/20/21 00:58 Results - Lab Results 09/20/21 01:44 09/20/21 01:44 Most recent lab results Calcium 17.1 mg/dL (8.4-10.2) H* 09/20/21 01:44 Assessment and Plan 1. Acute kidney injury: Likely vasomotor LANDON in the setting of volume depletion. ATN. Urine studies. Continue IV fluids. Monitor renal function. Avoid nephrotoxic agents. Meds dosage based on GFR. 2. Hypercalcemia, POA: Suspected hyperparathyroidism. Also volume depletion. Prior h/o abdominal cancer. Calcitonin. Cinacalcet. Monitor Calcium level. 3. FEN: Monitor lytes and volume status. 4. Acute metabolic encephalopathy, POA: Monitor. 5. History of CVA in the past. 6. DM: SSI. Monitor. 7. Hypertension. 8. H/o abdominal cancer status post chemotherapy. 9. Severe protein calorie malnutrition // Failure to thrive. Subjective: Patient was seen and examined at the bedside. Examination: General appearance: well-developed, appears stated age, no distress HEENT: atraumatic, pupils reacting to light Neck: trachea midline Respiratory: ctab Heart: S1S2, regular, no murmur Abdomen: soft, bowel sounds heard, NT Integumentary: no obvious rash Neurologic: alert, non-verbal, not following any command Ext: no edema
[2021-09-20] MEDS: ASPIRIN 81 MG TAB CHEW PO SCH (10:29)
[2021-09-20] MEDS: NIFEdipine XL 30 MG TAB PO SCH ×2 (10:29→21:59)
[2021-09-20] MEDS: OXYBUTYNIN 5 MG TAB PO SCH ×2 (10:29→21:59)
[2021-09-20] MEDS: GABAPENTIN 300 MG CAP PO SCH ×2 (10:29→21:59)
[2021-09-20] MEDS: LOSARTAN 50 MG TAB PO SCH (10:29)
[2021-09-20] MEDS: PANTOPRAZOLE 40 MG TAB PO SCH (10:29)
[2021-09-20] MEDS: FLUTICASONE PROPIONATE NASAL SPRAY 16 GM NS SCH (10:29)
[2021-09-20] MEDS: LINAGLIPTIN 5 MG TAB PO SCH (10:30)
[2021-09-20] MEDS: LEVOTHYROXINE 25 MCG TAB PO SCH (10:34)
[2021-09-20] MEDS: allopurinoL 100 MG TAB PO SCH (10:34)
[2021-09-20 10:55] LABS: Calcium > 13.0 mg/dL (8.4-10.2)
[2021-09-20] MEDS: CINACALCET 30 MG TAB PO SCH (11:06)
[2021-09-20] MEDS: hydrALAZINE 20 MG/1 ML INJ IV PRN ×3 (11:09→22:45)
--- NOTE | 2021-09-20 11:21 | Cat Scan Report ---
CT ABDOMEN AND PELVIS WITHOUT CONTRAST INDICATION / CLINICAL INFORMATION: Hypercalcemia. TECHNIQUE: All CT scans at this location are performed using CT dose reduction for ALARA by means of automated exposure control. COMPARISON: None available. FINDINGS: ABDOMEN: The liver measures 16.4 cm in length and demonstrates numerous low density masses scattered throughout. There are multiple small calcified stones in a normal size gallbladder without wall thick ening or bile duct dilatation. The pancreas is normal. There is possible nodularity adjacent to the s pleen inferomedially. There is a 3.7 cm simple cyst-appearing lesion in the upper pole of the left kidney. The right kidney is normal. The adrenal glands and bowel are unremarkable. There are atherosclerotic calcifications i nvolving the abdominal aorta and its branches without aneurysm. No retroperitoneal adenopathy is pres ent. There is a 4.7 cm mass in the peritoneal fat in the mid abdomen anteriorly, just below the trans verse colon. The lung bases are clear. PELVIS: There is a moderate amount of stool in a mildly distended rectum. The rectal wall appears mil dly thickened without pericolonic inflammation. The uterus and ovaries are not identified. No abnorma l mass or fluid collection is seen. There is no evidence of appendicitis or diverticulitis. I do not identify a hernia. A mild compression fracture involving the superior endplate of the L1 vertebral body is probably old. There is moderate spondylosis. A median sternotomy is noted. There is no evidence of osseous metasta tic disease. IMPRESSION: 1. Extensive diffuse metastatic disease involving the liver. 2. Evidence of peritoneal carcinomatosis, best seen in the midabdomen below the transverse colon ante riorly. Possible additional disease adjacent to the spleen. 3. Possible fecal impaction and mild associated stercoral colitis in the rectum. 4. Cholelithiasis. Signer Name: Amish Geller MD Signed: 09/20/2021 11:17 AM Workstation Name: [id number]
[2021-09-20] MEDS ORDERED: SENNOSIDES/DOCUSATE SODIUM 8.6/50 MG TAB PO PRN (13:09)
--- NOTE | 2021-09-20 14:30 | Electrocardiograph Report ---
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
[2021-09-20] MEDS: hydrALAZINE 25 MG TAB PO SCH ×2 (14:37→21:58)
[2021-09-20] MEDS: CALCITONIN,SALMON,SYNTHETIC 400 UNIT/2 ML INJ MDV IM SCH ×2 (14:53→22:45)
--- NOTE | 2021-09-20 15:21 | Ultrasound Report ---
ULTRASOUND RENAL INDICATION: renal failure. COMPARISON: CT earlier the same day.. FINDINGS: RIGHT KIDNEY: Size: 11.7 cm. Echogenicity: Mildly increased. Cortical thickness: Normal. Stones: None. Hydronephrosis: None. Cyst or mass: None. LEFT KIDNEY: Size: 11.3 cm. Echogenicity: Mildly increased. Cortical thickness: Normal. Stones: None. Hydronephrosis: None. Cyst or mass: 3.5 cm upper pole cyst. Urinary Bladder: No significant abnormality. Free Fluid: None. Additional Findings: None. IMPRESSION 1. No acute sonographic abnormality of the kidneys. Increased echogenicity within the cortex of both kidneys can be seen in the setting of medical renal disease. Signer Name: Musa Oro MD Signed: 09/20/2021 3:16 PM Workstation Name: [facility]
[2021-09-20] MEDS: CEFEPIME/NS 2 GM/100 ML 2 GM/100 ML BAG IV SCH (17:22)
[2021-09-20] MEDS: traZODone 50 MG TAB PO SCH (21:58)
[2021-09-20] MEDS ORDERED: hydrOXYzine PAMOATE 25 MG CAP PO PRN (22:00)
[2021-09-20] MEDS ORDERED: INSULIN GLARGINE 100 UNITS/ML SUB-Q SCH (22:00)
[2021-09-20] MEDS ORDERED: NON-FORMULARY EACH (Insulin Glargine,Hum.Rec.Anlog [Lantus Solostar] 100 UNIT/ML Insuln.Pe SQ SCH (22:00)
[2021-09-21] MEDS: hydrALAZINE 25 MG TAB PO SCH ×2 (06:08→22:51)
[2021-09-21] MEDS: LEVOTHYROXINE 25 MCG TAB PO SCH (06:10)
[2021-09-21] MEDS: CEFEPIME/NS 2 GM/100 ML 2 GM/100 ML BAG IV SCH ×2 (06:10→20:32)
[2021-09-21] MEDS: hydrALAZINE 20 MG/1 ML INJ IV PRN (06:20)
[2021-09-21] MEDS ORDERED: SODIUM CHLORIDE 0.9% 1000 ML 1,000 ML IV SCH (06:30)
[2021-09-21 06:31] LABS: Creatinine,Urine 61.8 mg/dL (0.1-20.0)
--- NOTE | 2021-09-21 07:03 | Hem/Onc Consultation ---
History of Present Illness - Reason for Consult Consult date: 09/21/21 Metastatic cancer - History of Present Illness Heme/Onc Data Review Patient has not been seen. This is 61yo female with history of abdominal ca with mets to liver s/p chemotherapy within the last year, HTN, diabetes, CVA, hysterectomy Presents to the ER with confusion; With a recent hospital admission for confusion As per chart review, patient continues to be confused and history was obtained by Planning for hospice as per chart review Abd/pel CT (09/20/21) c/w extensive diffuse metastatic disease involving the liver. Evidence of peritoneal carcinomatosis best seen in the midabdomen below the transverse colon anteriorly. Possible additional disease adjacent to the spleen. Possible fecal impaction and mild associated stercoral colitis in the rectum. Cholelithiasis. DATA REVIEWED BELOW IMP: Extensive abdominal cancer, with mets to the liver Borderline microcytosis, could be related to iron deficiency PLAN: Aredia 90mg Labs to include ammonia level, iron studies End of life discussion may be appropriate Laboratory Last Values WBC 15.5 K/mm3 (4.5-11.0) H 09/20/21 01:44 Hgb 14.4 gm/dl (10.1-14.3) H 09/20/21 01:44 Hct 46.1 % (30.3-42.9) H 09/20/21 01:44 MCV 82 fl (79-97) 09/20/21 01:44 MCH 26 pg (28-32) L 09/20/21 01:44 MCHC 31 % (30-34) 09/20/21 01:44 Plt Count 375 K/mm3 (140-440) 09/20/21 01:44 APTT 27.3 Sec. (24.2-36.6) 09/20/21 01:44 BUN 61 mg/dL (7-17) H 09/20/21 01:44 Creatinine 1.4 mg/dL (0.6-1.2) H 09/20/21 01:44 Estimated GFR 46 ml/min 09/20/21 01:44 BUN/Creatinine Ratio 44 % 09/20/21 01:44 Glucose 139 mg/dL (65-100) H 09/20/21 01:44 POC Glucose 175 mg/dL (70-105) H 09/20/21 16:04 Lactic Acid 1.70 mmol/L (0.7-2.0) 09/20/21 01:44 Calcium > 13.0 mg/dL (8.4-10.2) H* D 09/20/21 10:05 Phosphorus 3.90 mg/dL (2.5-4.5) 09/20/21 10:05 Total Bilirubin 0.50 mg/dL (0.1-1.2) 09/20/21 01:44 AST 81 units/L (5-40) H 09/20/21 01:44 ALT 23 units/L (7-56) 09/20/21 01:44 Alkaline Phosphatase 174 units/L (35-129) H 09/20/21 01:44 TSH 1.400 mlU/mL (0.270-4.200) 09/20/21 07:46 Free T4 1.33 ng/dL (0.76-1.46) 09/20/21 07:46 PTH Intact 310.7 pg/mL (15-65) H 09/20/21 07:46 Blood Type B POSITIVE 09/20/21 08:00 Antibody Screen Negative 09/20/21 08:00 Past History Past Medical History: cancer, diabetes, hypertension, stroke Past Surgical History: , hysterectomy (r/t cancer,), Other ( BREAST REDUCTION, TUMMY TUCK,) Social history: full code Family history: no significant family history Medications and Allergies Allergies Allergy/AdvReac Type Severity Reaction Status Date / Time diphenhydramine Allergy Rash/Hives Verified 09/14/21 13:58 [From Benadryl] and Sores on Face Home Medications Medication Instructions Recorded Confirmed Last Taken Type AtorvaSTATin [Lipitor] 20 mg PO QHS 09/12/21 09/20/21 Unknown History Fluticasone [Flonase] 1 spray BN DAILY 09/12/21 09/20/21 Unknown History Gabapentin 300 mg PO BID 09/12/21 09/20/21 Unknown History Insulin Aspart [Insulin Aspart 18 unit SQ TID 09/12/21 09/20/21 Unknown History Flexpen] Insulin Glargine,Hum.rec.anlog 45 unit SQ QHS 09/12/21 09/20/21 Unknown History [Lantus Solostar] Levothyroxine [Synthroid] 25 mcg PO QAM 09/12/21 09/20/21 Unknown History Losartan [Cozaar] 100 mg PO QDAY 09/12/21 09/20/21 Unknown History Omeprazole 40 mg PO DAILY 09/12/21 09/20/21 Unknown History Oxybutynin [Ditropan] 5 mg PO BID 09/12/21 09/20/21 Unknown History Saxagliptin HCl [Onglyza] 5 mg PO DAILY 09/12/21 09/20/21 Unknown History allopurinoL [Zyloprim] 100 mg PO QDAY 09/12/21 09/20/21 Unknown History hydrOXYzine PAMOATE [Vistaril] 25 mg PO HS PRN 09/12/21 09/20/21 Unknown History traZODone [Desyrel] 50 mg PO QHS 09/12/21 09/20/21 Unknown History Albuterol Mdi (or & Nicu Only) 1 puff IH Q6H PRN 09/14/21 09/20/21 Unknown History [ProAir HFA Inhaler] Buprenorphine [Butrans] 1 each TD QWEEK 09/14/21 09/20/21 Unknown History Dapagliflozin Propanediol [Farxiga] 5 mg PO QDAY 09/14/21 09/20/21 Unknown History Oxycodone HCl/Acetaminophen 1 each PO Q8H PRN 09/14/21 09/20/21 Unknown History [Percocet 10/325 mg] Aspirin [Aspirin BABY CHEW TAB] 81 mg PO QDAY #30 tab.chew 09/18/21 09/20/21 Unknown Rx Famotidine [Pepcid] 20 mg PO BID #30 tablet 09/18/21 09/20/21 Unknown Rx Hydralazine HCl 50 mg PO Q8H #90 09/18/21 09/20/21 Unknown Rx NIFEdipine XL [Procardia Xl] 30 mg PO Q12HR #60 tablet 09/18/21 09/20/21 Unknown Rx predniSONE [Deltasone] 20 mg PO QDAY #14 tablet 09/18/21 09/20/21 Unknown Rx Active Meds: Active Medications Acetaminophen (Acetaminophen 325 Mg Tab) 650 mg PO Q4H PRN PRN Reason: Pain MILD(1-3)/Fever >100.5/AMES Albuterol (Albuterol 2.5 Mg/3 Ml Nebu) 2.5 mg IH Q4HRT PRN PRN Reason: Shortness Of Breath Allopurinol (Allopurinol 100 Mg Tab) 100 mg PO QDAY [facility] Last Admin: 09/20/21 10:34 Dose: Not Given Aspirin (Aspirin 81 Mg Tab Chew) 81 mg PO QDAY [facility] Last Admin: 09/20/21 10:29 Dose: Not Given Atorvastatin Calcium (Atorvastatin 20 Mg Tab) 20 mg PO QHS [facility] Last Admin: 09/20/21 21:59 Dose: 20 mg Calcitonin [place] (Calcitonin,[place],Synthetic 400 Unit/2 Ml Inj Mdv) 400 unit IM Q12HR [facility] Last Admin: 09/20/21 22:45 Dose: 400 unit Cinacalcet (Cinacalcet 30 Mg Tab) 30 mg PO QDAY [facility] Last Admin: 09/20/21 11:06 Dose: Not Given Dextrose (Dextrose 10% *Hypoglycemia) 0 ml IV PRN PRN PRN Reason: Hypoglycemia Fluticasone Propionate (Fluticasone Propionate Nasal [place] 16 Gm) 50 mcg NS DAILY [facility] Last Admin: 09/20/21 10:29 Dose: Not Given Gabapentin (Gabapentin 300 Mg Cap) 300 mg PO BID [facility] Last Admin: 09/20/21 21:59 Dose: 300 mg Hydralazine HCl (Hydralazine 20 Mg/1 Ml Inj) 10 mg IV Q4H PRN PRN Reason: Hypertension Last Admin: 09/21/21 06:20 Dose: 10 mg Hydralazine HCl (Hydralazine 25 Mg Tab) 50 mg PO Q8HR [facility] Last Admin: 09/21/21 06:08 Dose: Not Given Hydroxyzine Pamoate (Hydroxyzine Pamoate 25 Mg Cap) 25 mg PO HS PRN PRN Reason: Anxiety Cefepime HCl (Cefepime/Ns 2 Gm/100 Ml) 2 gm in 100 mls @ 200 mls/hr IV Q12H [facility]; Protocol Last Admin: 09/21/21 06:10 Dose: 200 mls/hr Sodium Chloride (Nacl 0.9% 1000 Ml) 1,000 mls @ 75 mls/hr IV DIRECT [facility] Insulin Glargine (Insulin Glargine 100 Units/Ml) 45 units SUB-Q QHS [facility] Last Admin: 09/20/21 21:57 Dose: 45 units Insulin Human Lispro (Insulin Lispro 100 Unit/Ml) 0 unit SUB-Q ACHS [facility]; Protocol Last Admin: 09/20/21 22:00 Dose: 2 unit Levothyroxine Sodium (Levothyroxine 25 Mcg Tab) 25 mcg PO QAM@0600 [facility] Last Admin: 09/21/21 06:10 Dose: Not Given Linagliptin (Linagliptin 5 Mg Tab) 5 mg PO QDDIAB [facility] Last Admin: 09/20/21 10:30 Dose: Not Given Losartan Potassium (Losartan 50 Mg Tab) 100 mg PO QDAY [facility] Last Admin: 09/20/21 10:29 Dose: Not Given Naloxone HCl (Naloxone 0.4 Mg/1 Ml Inj) 0.1 mg IV Q2MIN PRN PRN Reason: Res Rate </= 8 or 02 SAT < 92% Nifedipine (Nifedipine Xl 30 Mg Tab) 30 mg PO Q12HR [facility] Last Admin: 09/20/21 21:59 Dose: 30 mg Ondansetron HCl (Ondansetron 4 Mg/2 Ml Inj) 4 mg IV Q8H PRN PRN Reason: Nausea And Vomiting Oxybutynin Chloride (Oxybutynin 5 Mg Tab) 5 mg PO BID [facility] Last Admin: 09/20/21 21:59 Dose: 5 mg Oxycodone/Acetaminophen (Oxycodone /Acetaminophen 5-325mg Tab) 1 tab PO Q6H PRN PRN Reason: Pain, Moderate (4-6) Pantoprazole Sodium (Pantoprazole 40 Mg Tab) 40 mg PO DAILY [facility] Last Admin: 09/20/21 10:29 Dose: Not Given Senna/Docusate Sodium (Sennosides/Docusate Sodium 8.6/50 Mg Tab) 2 tab PO Q12H PRN PRN Reason: Laxative Effect Sodium Chloride (Sodium Chloride 0.9% 10 Ml Flush Syringe) 10 ml IV BID [facility] Last Admin: 09/20/21 21:59 Dose: 10 ml Sodium Chloride (Sodium Chloride 0.9% 10 Ml Flush Syringe) 10 ml IV PRN PRN PRN Reason: LINE FLUSH Trazodone HCl (Trazodone 50 Mg Tab) 50 mg PO QHS [facility] Last Admin: 09/20/21 21:58 Dose: 50 mg Exam - Constitutional Vitals: Last Vital Signs Temp 97.4 F L 09/21/21 04:50 Pulse 97 H 09/21/21 06:20 Resp 18 09/21/21 04:50 BP 175/87 09/21/21 06:20 Pulse Ox 91 09/21/21 04:50 Results - Labs lab Results: Laboratory Results - last 24 hr 09/20/21 09/20/21 09/20/21 07:40 07:46 07:46 POC Glucose 113 H Calcium Phosphorus TSH 1.400 Free T4 1.33 PTH Intact Urine Creatinine Urine Sodium Blood Type Antibody Screen 09/20/21 09/20/21 09/20/21 07:46 08:00 10:05 POC Glucose Calcium > 13.0 H* D Phosphorus 3.90 TSH Free T4 PTH Intact 310.7 H Urine Creatinine Urine Sodium Blood Type B POSITIVE Antibody Screen Negative 09/20/21 09/20/21 09/21/21 10:51 16:04 05:35 POC Glucose 113 H 175 H Calcium Phosphorus TSH Free T4 PTH Intact Urine Creatinine 61.8 H Urine Sodium 21 Blood Type Antibody Screen
[2021-09-21 07:08] LABS: Protein/Creatinine Ratio,Urine 9.32
[2021-09-21 07:40] LABS: Basophils # (Auto) 0.1 K/mm3 (0.0-0.1); Basophils % (Auto) 0.3 % (0.0-1.8); Eosinophils % (Auto) 0.1 % (0.0-4.3); Hematocrit 40.8 % (30.3-42.9); Hemoglobin 12.6 gm/dl (10.1-14.3); Lymphocytes # (Auto) 1.1 K/mm3 (1.2-5.4); Lymphocytes % (Auto) 6.4 % (13.4-35.0); Mean Corpuscular HGB Conc 31 % (30-34); Mean Corpuscular Volume 82 fl (79-97); Monocytes # (Auto) 1.7 K/mm3 (0.0-0.8); Monocytes % (Auto) 10.3 % (0.0-7.3); Platelet Count 326 K/mm3 (140-440); Red Cell Distribution Width 14.6 % (13.2-15.2)
[2021-09-21] MEDS ORDERED: PAMIDRONATE DISODIUM 90 MG in SODIUM CHLORIDE 0.9% 1000 ML 1,000 ML IV ONE (08:00)
[2021-09-21 08:11] LABS: Alanine Aminotransferase 20 units/L (7-56); Albumin 2.4 g/dL (3.9-5); BUN/Creatinine Ratio 46; Blood Urea Nitrogen 65 mg/dL (7-17); Hemolysis Index 25; Iron 19 ug/dL (37-170); Total Iron Binding Capacity 148 mcg/dL (250-450)
[2021-09-21 08:34] LABS: Calcium > 13.0 mg/dL (8.4-10.2)
[2021-09-21] MEDS: INSULIN LISPRO 100 UNIT/ML SUB-Q SCH ×2 (08:59→14:39)
[2021-09-21] MEDS: LINAGLIPTIN 5 MG TAB PO SCH (09:00)
[2021-09-21] MEDS: ASPIRIN 81 MG TAB CHEW PO SCH (09:01)
[2021-09-21] MEDS: LOSARTAN 50 MG TAB PO SCH (09:01)
[2021-09-21] MEDS: GABAPENTIN 300 MG CAP PO SCH ×2 (09:02→22:52)
[2021-09-21] MEDS: OXYBUTYNIN 5 MG TAB PO SCH ×2 (09:02→22:52)
[2021-09-21] MEDS: allopurinoL 100 MG TAB PO SCH (09:03)
[2021-09-21] MEDS: PANTOPRAZOLE 40 MG TAB PO SCH (09:03)
[2021-09-21] MEDS: NIFEdipine XL 30 MG TAB PO SCH ×2 (09:03→22:53)
[2021-09-21] MEDS: CINACALCET 30 MG TAB PO SCH (09:03)
--- NOTE | 2021-09-21 09:54 | Progress Note ---
Assessment and Plan 1. Acute kidney injury: Likely vasomotor [place] in the setting of volume depletion. ATN. Urine studies. Continue IV fluids. Monitor renal function. Avoid nephrotoxic agents. Meds dosage based on GFR. 2. Hypercalcemia, POA: 2/2 malignancy vs primary hyperparathyroidism. Also volume depletion. H/o abdominal cancer. On Calcitonin. Pamidronate today. Unable to take Cinacalcet. Monitor Calcium level. 3. FEN: Monitor lytes and volume status. 4. Acute metabolic encephalopathy, POA: Monitor. 5. History of CVA in the past. 6. DM: SSI. Monitor. 7. Hypertension. 8. H/o abdominal cancer status post chemotherapy. 9. Severe protein calorie malnutrition // Failure to thrive. Subjective: Patient was seen and examined at the bedside. Examination: General appearance: well-developed, appears stated age, no distress HEENT: atraumatic, pupils reacting to light Neck: trachea midline Respiratory: ctab Heart: S1S2, regular, no murmur Abdomen: soft, bowel sounds heard, NT Integumentary: no obvious rash Neurologic: stuporous Ext: no edema Subjective Date of service: 09/21/21 Objective - Vital Signs Vital signs: Vital Signs - 12hr 09/20/21 09/20/21 09/20/21 21:58 22:00 22:45 Temperature Pulse Rate 118 H 118 H Respiratory Rate Blood Pressure 191/101 191/101 O2 Sat by Pulse 97 Oximetry 09/21/21 09/21/21 09/21/21 04:50 06:08 06:20 Temperature 97.4 F L Pulse Rate 106 H 96 H 97 H Respiratory 18 Rate Blood Pressure 175/87 178/87 175/87 O2 Sat by Pulse 91 Oximetry 09/21/21 08:55 Temperature Pulse Rate Respiratory Rate Blood Pressure O2 Sat by Pulse 97 Oximetry - Lab 09/22/21 05:23 09/22/21 05:23 Most recent lab results Calcium > 13.0 mg/dL (8.4-10.2) H* 09/21/21 07:27 Phosphorus 3.90 mg/dL (2.5-4.5) 09/20/21 10:05 Urine Creatinine 61.8 mg/dL (0.1-20.0) H 09/21/21 05:35 Urine Sodium 21 mmol/L 09/21/21 05:35 Urine Total Protein 576 mg/dL (5-11.8) H 09/21/21 05:35 Medications & Allergies - Medications Allergies/Adverse Reactions: Allergies diphenhydramine [From Benadryl] Allergy (Verified 09/14/21 13:58) Rash/Hives and Sores on Face Home Medications: Home Medications Medication Instructions Recorded Confirmed Last Taken Type AtorvaSTATin [Lipitor] 20 mg PO QHS 09/12/21 09/20/21 Unknown History Fluticasone [Flonase] 1 spray BN DAILY 09/12/21 09/20/21 Unknown History Gabapentin 300 mg PO BID 09/12/21 09/20/21 Unknown History Insulin Aspart [Insulin Aspart 18 unit SQ TID 09/12/21 09/20/21 Unknown History Flexpen] Insulin Glargine,Hum.rec.anlog 45 unit SQ QHS 09/12/21 09/20/21 Unknown History [Lantus Solostar] Levothyroxine [Synthroid] 25 mcg PO QAM 09/12/21 09/20/21 Unknown History Losartan [Cozaar] 100 mg PO QDAY 09/12/21 09/20/21 Unknown History Omeprazole 40 mg PO DAILY 09/12/21 09/20/21 Unknown History Oxybutynin [Ditropan] 5 mg PO BID 09/12/21 09/20/21 Unknown History Saxagliptin HCl [Onglyza] 5 mg PO DAILY 09/12/21 09/20/21 Unknown History allopurinoL [Zyloprim] 100 mg PO QDAY 09/12/21 09/20/21 Unknown History hydrOXYzine PAMOATE [Vistaril] 25 mg PO HS PRN 09/12/21 09/20/21 Unknown History traZODone [Desyrel] 50 mg PO QHS 09/12/21 09/20/21 Unknown History Albuterol Mdi (or & Nicu Only) 1 puff IH Q6H PRN 09/14/21 09/20/21 Unknown History [ProAir HFA Inhaler] Buprenorphine [Butrans] 1 each TD QWEEK 09/14/21 09/20/21 Unknown History Dapagliflozin Propanediol [Farxiga] 5 mg PO QDAY 09/14/21 09/20/21 Unknown History Oxycodone HCl/Acetaminophen 1 each PO Q8H PRN 09/14/21 09/20/21 Unknown History [Percocet 10/325 mg] Aspirin [Aspirin BABY CHEW TAB] 81 mg PO QDAY #30 tab.chew 09/18/21 09/20/21 Unknown Rx Famotidine [Pepcid] 20 mg PO BID #30 tablet 09/18/21 09/20/21 Unknown Rx Hydralazine HCl 50 mg PO Q8H #90 09/18/21 09/20/21 Unknown Rx NIFEdipine XL [Procardia Xl] 30 mg PO Q12HR #60 tablet 09/18/21 09/20/21 Unknown Rx predniSONE [Deltasone] 20 mg PO QDAY #14 tablet 09/18/21 09/20/21 Unknown Rx Active Medications: Generic Name Dose Route Start Last Admin Trade Name Freq PRN Reason Stop Dose Admin Acetaminophen 650 mg 09/20/21 08:00 Acetaminophen 325 Mg Tab PO Q4H PRN Pain MILD(1-3)/Fever >100.5/AMES Albuterol 2.5 mg 09/20/21 08:00 Albuterol 2.5 Mg/3 Ml Nebu IH Q4HRT PRN Shortness Of Breath Allopurinol 100 mg 09/20/21 10:00 09/21/21 09:03 Allopurinol 100 Mg Tab PO Not Given QDAY [facility] Aspirin 81 mg 09/20/21 10:00 09/21/21 09:01 Aspirin 81 Mg Tab Chew PO Not Given QDAY [facility] Atorvastatin Calcium 20 mg 09/20/21 22:00 09/20/21 21:59 Atorvastatin 20 Mg Tab PO 20 mg QHS [facility] Administration Calcitonin [place] 400 unit 09/20/21 12:00 09/20/21 22:45 Calcitonin,[place],Synthetic 400 Unit/2 Ml Inj Mdv IM 400 unit Q12HR [facility] Administration Cinacalcet 30 mg 09/20/21 11:00 09/21/21 09:03 Cinacalcet 30 Mg Tab PO Not Given QDAY [facility] Dextrose 0 ml 09/20/21 08:00 Dextrose 10% *Hypoglycemia IV PRN PRN Hypoglycemia Fluticasone Propionate 50 mcg 09/20/21 10:00 09/20/21 10:29 Fluticasone Propionate Nasal [place] 16 Gm NS Not Given DAILY [facility] Gabapentin 300 mg 09/20/21 10:00 09/21/21 09:02 Gabapentin 300 Mg Cap PO Not Given BID [facility] Hydralazine HCl 10 mg 09/20/21 08:00 09/21/21 06:20 Hydralazine 20 Mg/1 Ml Inj IV 10 mg Q4H PRN Administration Hypertension Hydralazine HCl 50 mg 09/20/21 14:00 09/21/21 06:08 Hydralazine 25 Mg Tab PO Not Given Q8HR [facility] Hydroxyzine Pamoate 25 mg 09/20/21 22:00 Hydroxyzine Pamoate 25 Mg Cap PO HS PRN Anxiety Cefepime HCl 2 gm in 100 mls @ 200 mls/hr 09/20/21 18:00 09/21/21 06:10 Cefepime/Ns 2 Gm/100 Ml IV 200 mls/hr Q12H [facility] Administration Protocol Pamidronate Disodium 90 mg/ 1,010 mls @ 100 mls/hr 09/21/21 08:00 Sodium Chloride IV 09/21/21 18:05 ONCE ONE Insulin Glargine 45 units 09/20/21 22:00 09/20/21 21:57 Insulin Glargine 100 Units/Ml SUB-Q 45 units QHS [facility] Administration Insulin Human Lispro 0 unit 09/20/21 08:00 09/21/21 08:59 Insulin Lispro 100 Unit/Ml SUB-Q Not Given ACHS [facility] Protocol Levothyroxine Sodium 25 mcg 09/20/21 10:00 09/21/21 06:10 Levothyroxine 25 Mcg Tab PO Not Given QAM@0600 [facility] Linagliptin 5 mg 09/20/21 11:00 09/21/21 09:00 Linagliptin 5 Mg Tab PO Not Given QDDIAB [facility] Losartan Potassium 100 mg 09/20/21 10:00 09/21/21 09:01 Losartan 50 Mg Tab PO Not Given QDAY [facility] Naloxone HCl 0.1 mg 09/20/21 08:00 Naloxone 0.4 Mg/1 Ml Inj IV Q2MIN PRN Res Rate </= 8 or 02 SAT < 92% Nifedipine 30 mg 09/20/21 10:00 09/21/21 09:03 Nifedipine Xl 30 Mg Tab PO Not Given Q12HR [facility] Ondansetron HCl 4 mg 09/20/21 08:00 Ondansetron 4 Mg/2 Ml Inj IV Q8H PRN Nausea And Vomiting Oxybutynin Chloride 5 mg 09/20/21 10:00 09/21/21 09:02 Oxybutynin 5 Mg Tab PO Not Given BID [facility] Oxycodone/Acetaminophen 1 tab 09/20/21 09:00 Oxycodone /Acetaminophen 5-325mg Tab PO Q6H PRN Pain, Moderate (4-6) Pantoprazole Sodium 40 mg 09/20/21 10:00 09/21/21 09:03 Pantoprazole 40 Mg Tab PO Not Given DAILY [facility] Senna/Docusate Sodium 2 tab 09/20/21 13:09 Sennosides/Docusate Sodium 8.6/50 Mg Tab PO Q12H PRN Laxative Effect Sodium Chloride 10 ml 09/20/21 10:00 09/20/21 21:59 Sodium Chloride 0.9% 10 Ml Flush Syringe IV 10 ml BID [facility] Administration Sodium Chloride 10 ml 09/20/21 08:00 Sodium Chloride 0.9% 10 Ml Flush Syringe IV PRN PRN LINE FLUSH Trazodone HCl 50 mg 09/20/21 22:00 09/20/21 21:58 Trazodone 50 Mg Tab PO 50 mg QHS [facility] Administration
--- NOTE | 2021-09-21 09:55 | Progress Note ---
Assessment and Plan Assessment and plan: #Acute metabolic encephalopathy -CT head unremarkable for acute abnormality -Likely secondary to hypercalcemia -We will continue to monitor, if no improvement will consult neurology #Severe hypercalcemia -Calcium greater than 13 -Continue IV fluids, calcitonin and cinacalcet -Nephrology following, assistance appreciated -Continue telemetry #Sinus arrest #Pauses on telemetry monitoring -Ave blocking agents held -External pacer ordered 40-45bpm for these episodes -Cardiology consulted, assistance appreciated #Acute kidney injury with vasomotor nephropathy -Creatinine last admission 0.9, currently 1.4 -Likely secondary to volume depletion from hypercalcemia -Continue IV fluids -Nephrology following, assistance appreciated #Generalized weakness likely secondary to hypercalcemia #Hyperparathyroidism -Parathyroid scan was negative for adenoma #Leukocytosis -elevated WBC count with neutrophillic predominance -given hypercalcemia, SPEP ordered to rule out MM -with elevated Gamma gap #Hypothyroidism -continue synthroid #Hypernatremia -continue 1/2NS #Diabetes mellitus, insulin dependent -lantus decreased to 25U qhs given now NPO status due to mental state -continue accuchecks -hypoglycemia precautions #Hypertension -continue hydralazine IV and PRN #History of CVA in the past #Severe protein calorie malnutrition -albumin 2.4 -nutrition consult #Failure to thrive -likely sequelae of cancer, volume depletion and hypercalcemia #History of abdominal cancer status post chemotherapy -CT abdomen/pelvis shows peritoneal carcinomatous and hepatic mets -Hematology/Oncology following, assistance appreciated #Advanced care planning -Disease education, care plan, diagnosis, prognosis discussed with next of kin ( Steven Bland) via phone. We discussed goals of care and patient's current clinical status. She was treated for her cancer at [facility] and he was not aware of the type of cancer or prognosis. At this time he would like to continue full CODE STATUS and plans to visit the patient sometime today. Family understands and acknowledges current plan. -Time: +30 minutes History Interval history: Nursing patient reported to have max of 1 minute pauses on telemetry. Patient currently is altered and minimally arousable to sternal rub. Hospitalist Physical - Physical exam Narrative exam: GENERAL: Well-developed well-nourished. In no acute distress. HEENT: Normocephalic. Atraumatic. NECK: Supple. CHEST/LUNGS: CTAB on room air HEART/CARDIOVASCULAR: RRR. No murmur, rubs or gallops appreciated. ABDOMEN: +BS. NT/ND. SKIN: No rashes noted. NEURO:Unable to assess. MUSCULOSKELETAL: No joint effusion EXTREMITIES: No cyanosis, clubbing or edema. PSYCH: Somnolent. - Constitutional Vitals: Temp Pulse Resp BP Pulse Ox 97.4 F L 97 H 18 175/87 97 09/21/21 04:50 09/21/21 06:20 09/21/21 04:50 09/21/21 06:20 09/21/21 08:55 HEART Score - HEART Score Troponin: Troponin T < 0.010 ng/mL (0.00-0.029) 09/20/21 01:44 Results - Labs CBC & Chem 7: 09/21/21 07:27 09/21/21 07:27 Labs: Laboratory Last Values WBC 16.7 K/mm3 (4.5-11.0) H 09/21/21 07:27 RBC 5.00 M/mm3 (3.65-5.03) 09/21/21 07:27 Hgb 12.6 gm/dl (10.1-14.3) 09/21/21 07:27 Hct 40.8 % (30.3-42.9) 09/21/21 07:27 MCV 82 fl (79-97) 09/21/21 07:27 MCH 25 pg (28-32) L 09/21/21 07:27 MCHC 31 % (30-34) 09/21/21 07:27 RDW 14.6 % (13.2-15.2) 09/21/21 07:27 Plt Count 326 K/mm3 (140-440) 09/21/21 07:27 Lymph % (Auto) 6.4 % (13.4-35.0) L 09/21/21 07:27 [place] % (Auto) 10.3 % (0.0-7.3) H 09/21/21 07:27 Eos % (Auto) 0.1 % (0.0-4.3) 09/21/21 07:27 Baso % (Auto) 0.3 % (0.0-1.8) 09/21/21 07:27 Lymph # (Auto) 1.1 K/mm3 (1.2-5.4) L 09/21/21 07:27 [place] # (Auto) 1.7 K/mm3 (0.0-0.8) H 09/21/21 07:27 Eos # (Auto) 0.0 K/mm3 (0.0-0.4) 09/21/21 07:27 Baso # (Auto) 0.1 K/mm3 (0.0-0.1) 09/21/21 07:27 Seg Neutrophils % 82.9 % (40.0-70.0) H 09/21/21 07:27 Seg Neutrophils # 13.8 K/mm3 (1.8-7.7) H 09/21/21 07:27 APTT 27.3 Sec. (24.2-36.6) 09/20/21 01:44 Sodium 151 mmol/L (137-145) H 09/21/21 07:27 Potassium 4.1 mmol/L (3.6-5.0) 09/21/21 07:27 Chloride 116.5 mmol/L (98-107) H 09/21/21 07:27 Carbon Dioxide 25 mmol/L (22-30) 09/21/21 07:27 Anion Gap 14 mmol/L 09/21/21 07:27 BUN 65 mg/dL (7-17) H 09/21/21 07:27 Creatinine 1.4 mg/dL (0.6-1.2) H 09/21/21 07:27 Estimated GFR 46 ml/min 09/21/21 07:27 BUN/Creatinine Ratio 46 % 09/21/21 07:27 Glucose 86 mg/dL (65-100) 09/21/21 07:27 POC Glucose 175 mg/dL (70-105) H 09/20/21 16:04 Lactic Acid 1.70 mmol/L (0.7-2.0) 09/20/21 01:44 Calcium > 13.0 mg/dL (8.4-10.2) H* 09/21/21 07:27 Phosphorus 3.90 mg/dL (2.5-4.5) 09/20/21 10:05 Iron 19 ug/dL (37-170) L 09/21/21 07:27 TIBC 148 mcg/dL (250-450) L 09/21/21 07:27 Total Bilirubin 0.50 mg/dL (0.1-1.2) 09/21/21 07:27 AST 84 units/L (5-40) H 09/21/21 07:27 ALT 20 units/L (7-56) 09/21/21 07:27 Alkaline Phosphatase 153 units/L (35-129) H 09/21/21 07:27 Ammonia 28.0 umol/L (25-60) 09/21/21 07:27 Troponin T < 0.010 ng/mL (0.00-0.029) 09/20/21 01:44 Total Protein 7.3 g/dL (6.3-8.2) 09/21/21 07:27 Albumin 2.4 g/dL (3.9-5) L 09/21/21 07:27 Albumin/Globulin Ratio 0.5 % 09/21/21 07:27 TSH 1.400 mlU/mL (0.270-4.200) 09/20/21 07:46 Free T4 1.33 ng/dL (0.76-1.46) 09/20/21 07:46 PTH Intact 310.7 pg/mL (15-65) H 09/20/21 07:46 Urine Color Yellow (Yellow) 09/20/21 04:47 Urine Turbidity Cloudy (Clear) 09/20/21 04:47 Urine pH 6.0 (5.0-7.0) 09/20/21 04:47 Ur Specific [place] 1.011 (1.003-1.030) 09/20/21 04:47 Urine Protein >500 mg/dL (Negative) 09/20/21 04:47 Urine Glucose (UA) 150 mg/dL (Negative) 09/20/21 04:47 Urine Ketones Neg mg/dL (Negative) 09/20/21 04:47 Urine Blood Sm (Negative) 09/20/21 04:47 Urine Nitrite Neg (Negative) 09/20/21 04:47 Urine Bilirubin Neg (Negative) 09/20/21 04:47 Urine Urobilinogen < 2.0 mg/dL (<2.0) 09/20/21 04:47 Ur Leukocyte Esterase Lg (Negative) 09/20/21 04:47 Urine WBC (Auto) 182.0 /HPF (0.0-6.0) H 09/20/21 04:47 Urine RBC (Auto) 13.0 /HPF (0.0-6.0) 09/20/21 04:47 U Epithel Cells (Auto) 2.0 /HPF (0-13.0) 09/20/21 04:47 Urine Bacteria (Auto) 4+ /HPF (Negative) 09/20/21 04:47 Urine WBC Clumps 3+ /HPF 09/20/21 04:47 Hyaline Casts 4 /LPF 09/20/21 04:47 Urine Mucus Few /HPF 09/20/21 04:47 Urine Yeast (Budding) 3+ /HPF 09/20/21 04:47 Urine Creatinine 61.8 mg/dL (0.1-20.0) H 09/21/21 05:35 Protein/Creatinin Ratio 9.32 09/21/21 05:35 Urine Sodium 21 mmol/L 09/21/21 05:35 Urine Total Protein 576 mg/dL (5-11.8) H 09/21/21 05:35 Salicylates < 0.3 mg/dL (2.8-20.0) L 09/20/21 01:44 Urine Opiates Screen Negative 09/20/21 04:47 Urine Methadone Screen Negative 09/20/21 04:47 Acetaminophen 5.0 ug/mL (10.0-30.0) L 09/20/21 01:44 Ur Barbiturates Screen Negative 09/20/21 04:47 Ur Phencyclidine Scrn Negative 09/20/21 04:47 Ur Amphetamines Screen Negative 09/20/21 04:47 U Benzodiazepines Scrn Negative 09/20/21 04:47 Urine Cocaine Screen Negative 09/20/21 04:47 U Marijuana (THC) Screen Negative 09/20/21 04:47 Drugs of Abuse Note Disclamer 09/20/21 04:47 Blood Type B POSITIVE 09/20/21 08:00 Antibody Screen Negative 09/20/21 08:00 Microbiology: Microbiology 09/20/21 09:15 Urine,Clean Catch Urine Culture - Preliminary Gram Negative Shane 09/20/21 07:46 Peripheral/Venous Blood Culture - Preliminary NO GROWTH AFTER 24 HOURS 09/20/21 07:46 Peripheral/Venous Blood Culture - Preliminary NO GROWTH AFTER 24 HOURS Vega/IV: Voiding Method Indwelling Catheter Active Medications - Current Medications Current Medications: Generic Name Dose Route Start Last Admin Trade Name Freq PRN Reason Stop Dose Admin Acetaminophen 650 mg 09/20/21 08:00 Acetaminophen 325 Mg Tab PO Q4H PRN Pain MILD(1-3)/Fever >100.5/AMES Albuterol 2.5 mg 09/20/21 08:00 Albuterol 2.5 Mg/3 Ml Nebu IH Q4HRT PRN Shortness Of Breath Allopurinol 100 mg 09/20/21 10:00 09/21/21 09:03 Allopurinol 100 Mg Tab PO Not Given QDAY CARMEN Aspirin 81 mg 09/20/21 10:00 09/21/21 09:01 Aspirin 81 Mg Tab Chew PO Not Given QDAY CARMEN Atorvastatin Calcium 20 mg 09/20/21 22:00 09/20/21 21:59 Atorvastatin 20 Mg Tab PO 20 mg QHS CARMEN Administration Calcitonin [place] 400 unit 09/20/21 12:00 09/20/21 22:45 Calcitonin,[place],Synthetic 400 Unit/2 Ml Inj Mdv IM 400 unit Q12HR CARMEN Administration Cinacalcet 30 mg 09/20/21 11:00 09/21/21 09:03 Cinacalcet 30 Mg Tab PO Not Given QDAY [facility] Dextrose 0 ml 09/20/21 08:00 Dextrose 10% *Hypoglycemia IV PRN PRN Hypoglycemia Fluticasone Propionate 50 mcg 09/20/21 10:00 09/20/21 10:29 Fluticasone Propionate Nasal [place] 16 Gm NS Not Given DAILY [facility] Gabapentin 300 mg 09/20/21 10:00 09/21/21 09:02 Gabapentin 300 Mg Cap PO Not Given BID [facility] Hydralazine HCl 10 mg 09/20/21 08:00 09/21/21 06:20 Hydralazine 20 Mg/1 Ml Inj IV 10 mg Q4H PRN Administration Hypertension Hydralazine HCl 50 mg 09/20/21 14:00 09/21/21 06:08 Hydralazine 25 Mg Tab PO Not Given Q8HR [facility] Hydroxyzine Pamoate 25 mg 09/20/21 22:00 Hydroxyzine Pamoate 25 Mg Cap PO HS PRN Anxiety Cefepime HCl 2 gm in 100 mls @ 200 mls/hr 09/20/21 18:00 09/21/21 06:10 Cefepime/Ns 2 Gm/100 Ml IV 200 mls/hr Q12H CARMEN Administration Protocol Pamidronate Disodium 90 mg/ 1,010 mls @ 100 mls/hr 09/21/21 08:00 Sodium Chloride IV 09/21/21 18:05 ONCE ONE Sodium Chloride 1,000 mls @ 75 mls/hr 09/21/21 10:00 Nacl 0.45% 1000 Ml IV DIRECT CARMEN Insulin Glargine 45 units 09/20/21 22:00 09/20/21 21:57 Insulin Glargine 100 Units/Ml SUB-Q 45 units QHS [facility] Administration Insulin Human Lispro 0 unit 09/20/21 08:00 09/21/21 08:59 Insulin Lispro 100 Unit/Ml SUB-Q Not Given ACHS [facility] Protocol Levothyroxine Sodium 25 mcg 09/20/21 10:00 09/21/21 06:10 Levothyroxine 25 Mcg Tab PO Not Given QAM@0600 [facility] Linagliptin 5 mg 09/20/21 11:00 09/21/21 09:00 Linagliptin 5 Mg Tab PO Not Given QDDIAB [facility] Losartan Potassium 100 mg 09/20/21 10:00 09/21/21 09:01 Losartan 50 Mg Tab PO Not Given QDAY [facility] Naloxone HCl 0.1 mg 09/20/21 08:00 Naloxone 0.4 Mg/1 Ml Inj IV Q2MIN PRN Res Rate </= 8 or 02 SAT < 92% Nifedipine 30 mg 09/20/21 10:00 09/21/21 09:03 Nifedipine Xl 30 Mg Tab PO Not Given Q12HR [facility] Ondansetron HCl 4 mg 09/20/21 08:00 Ondansetron 4 Mg/2 Ml Inj IV Q8H PRN Nausea And Vomiting Oxybutynin Chloride 5 mg 09/20/21 10:00 09/21/21 09:02 Oxybutynin 5 Mg Tab PO Not Given BID [facility] Oxycodone/Acetaminophen 1 tab 09/20/21 09:00 Oxycodone /Acetaminophen 5-325mg Tab PO Q6H PRN Pain, Moderate (4-6) Pantoprazole Sodium 40 mg 09/20/21 10:00 09/21/21 09:03 Pantoprazole 40 Mg Tab PO Not Given DAILY [facility] Senna/Docusate Sodium 2 tab 09/20/21 13:09 Sennosides/Docusate Sodium 8.6/50 Mg Tab PO Q12H PRN Laxative Effect Sodium Chloride 10 ml 09/20/21 10:00 09/20/21 21:59 Sodium Chloride 0.9% 10 Ml Flush Syringe IV 10 ml BID CAREMN Administration Sodium Chloride 10 ml 09/20/21 08:00 Sodium Chloride 0.9% 10 Ml Flush Syringe IV PRN PRN LINE FLUSH Trazodone HCl 50 mg 09/20/21 22:00 09/20/21 21:58 Trazodone 50 Mg Tab PO 50 mg QHS CARMEN Administration
[2021-09-21] MEDS ORDERED: SODIUM CHLORIDE 0.45% 1000 ML 1,000 ML IV SCH (10:00)
--- NOTE | 2021-09-21 13:17 | Nuclear Medicine Report ---
NUCLEAR MEDICINE PARATHYROID SCAN INDICATION / CLINICAL INFORMATION: Primary Hyperparathyroidism.. COMPARISON: No relevant prior imaging study available. TECHNIQUE: Following the intravenous administration of 20 mCi [id number], early and delayed anterior and o blique images of the neck and upper thorax were acquired. FINDINGS: EARLY IMAGING: Diffuse symmetric physiologic thyroid activity. DELAYED IMAGING: Near complete symmetric washout from the normal thyroid tissue. No abnormal parathyr oid gland. No abnormal thoracic activity. Additional Findings: None. IMPRESSION: 1. No appreciable parathyroid adenoma. Signer Name: Gerry Roberts MD Signed: 09/21/2021 1:13 PM Workstation Name: [id number]
--- NOTE | 2021-09-21 14:24 | Consultation ---
History of Present Illness Consult date: 09/21/21 Requesting physician: BRANDI FERRARI Consult reason: other (Pauses on monitor) History of present illness: Patient is 61-year-old female with a past medical history of hypertension, diabetes, CVA, abdominal cancer s/p chemotherapy, hysterectomy who was admitted to the hospital on 09/20/2021 for altered mental status. Patient was recently discharged from the hospital due to confusion and failure to thrive. History is taken from documentation due to patient altered mental status at time of inter view. Per documentation patient mental status has not changed since discharge and patient has reportedly finished chemotherapy within the last year. Of note patient was found to be hypercalcemic, have LANDON, have leukocytosis and to be hypernatremic. Cardiology is consulted because overnight and this a.m. patient has had pauses on monitor. Patient is previously known to our practice Past History Past Medical History: cancer, diabetes, hypertension, stroke Past Surgical History: , hysterectomy (r/t cancer,), Other ( BREAST REDUCTION, TUMMY TUCK,) Social history: full code Family history: no significant family history Medications and Allergies Allergies Allergy/AdvReac Type Severity Reaction Status Date / Time diphenhydramine Allergy Rash/Hives Verified 09/14/21 13:58 [From Benadryl] and Sores on Face Home Medications Medication Instructions Recorded Confirmed Last Taken Type AtorvaSTATin [Lipitor] 20 mg PO QHS 09/12/21 09/20/21 Unknown History Fluticasone [Flonase] 1 spray BN DAILY 09/12/21 09/20/21 Unknown History Gabapentin 300 mg PO BID 09/12/21 09/20/21 Unknown History Insulin Aspart [Insulin Aspart 18 unit SQ TID 09/12/21 09/20/21 Unknown History Flexpen] Insulin Glargine,Hum.rec.anlog 45 unit SQ QHS 09/12/21 09/20/21 Unknown History [Lantus Solostar] Levothyroxine [Synthroid] 25 mcg PO QAM 09/12/21 09/20/21 Unknown History Losartan [Cozaar] 100 mg PO QDAY 09/12/21 09/20/21 Unknown History Omeprazole 40 mg PO DAILY 09/12/21 09/20/21 Unknown History Oxybutynin [Ditropan] 5 mg PO BID 09/12/21 09/20/21 Unknown History Saxagliptin HCl [Onglyza] 5 mg PO DAILY 09/12/21 09/20/21 Unknown History allopurinoL [Zyloprim] 100 mg PO QDAY 09/12/21 09/20/21 Unknown History hydrOXYzine PAMOATE [Vistaril] 25 mg PO HS PRN 09/12/21 09/20/21 Unknown History traZODone [Desyrel] 50 mg PO QHS 09/12/21 09/20/21 Unknown History Albuterol Mdi (or & Nicu Only) 1 puff IH Q6H PRN 09/14/21 09/20/21 Unknown History [ProAir HFA Inhaler] Buprenorphine [Butrans] 1 each TD QWEEK 09/14/21 09/20/21 Unknown History Dapagliflozin Propanediol [Farxiga] 5 mg PO QDAY 09/14/21 09/20/21 Unknown History Oxycodone HCl/Acetaminophen 1 each PO Q8H PRN 09/14/21 09/20/21 Unknown History [Percocet 10/325 mg] Aspirin [Aspirin BABY CHEW TAB] 81 mg PO QDAY #30 tab.chew 09/18/21 09/20/21 Unknown Rx Famotidine [Pepcid] 20 mg PO BID #30 tablet 09/18/21 09/20/21 Unknown Rx Hydralazine HCl 50 mg PO Q8H #90 09/18/21 09/20/21 Unknown Rx NIFEdipine XL [Procardia Xl] 30 mg PO Q12HR #60 tablet 09/18/21 09/20/21 Unknown Rx predniSONE [Deltasone] 20 mg PO QDAY #14 tablet 09/18/21 09/20/21 Unknown Rx Active Meds: Active Medications Acetaminophen (Acetaminophen 325 Mg Tab) 650 mg PO Q4H PRN PRN Reason: Pain MILD(1-3)/Fever >100.5/AMES Albuterol (Albuterol 2.5 Mg/3 Ml Nebu) 2.5 mg IH Q4HRT PRN PRN Reason: Shortness Of Breath Allopurinol (Allopurinol 100 Mg Tab) 100 mg PO QDAY [facility] Last Admin: 09/21/21 09:03 Dose: Not Given Aspirin (Aspirin 81 Mg Tab Chew) 81 mg PO QDAY [facility] Last Admin: 09/21/21 09:01 Dose: Not Given Atorvastatin Calcium (Atorvastatin 20 Mg Tab) 20 mg PO QHS [facility] Last Admin: 09/20/21 21:59 Dose: 20 mg Calcitonin [place] (Calcitonin,[place],Synthetic 400 Unit/2 Ml Inj Mdv) 400 unit IM Q12HR [facility] Last Admin: 09/20/21 22:45 Dose: 400 unit Cinacalcet (Cinacalcet 30 Mg Tab) 30 mg PO QDAY [facility] Last Admin: 09/21/21 09:03 Dose: Not Given Dextrose (Dextrose 10% *Hypoglycemia) 0 ml IV PRN PRN PRN Reason: Hypoglycemia Fluticasone Propionate (Fluticasone Propionate Nasal [place] 16 Gm) 50 mcg NS DAILY [facility] Last Admin: 09/20/21 10:29 Dose: Not Given Gabapentin (Gabapentin 300 Mg Cap) 300 mg PO BID [facility] Last Admin: 09/21/21 09:02 Dose: Not Given Hydralazine HCl (Hydralazine 20 Mg/1 Ml Inj) 10 mg IV Q4H PRN PRN Reason: Hypertension Last Admin: 09/21/21 06:20 Dose: 10 mg Hydralazine HCl (Hydralazine 25 Mg Tab) 50 mg PO Q8HR [facility] Last Admin: 09/21/21 06:08 Dose: Not Given Hydralazine HCl (Hydralazine 20 Mg/1 Ml Inj) 20 mg IV Q8H [facility] Hydroxyzine Pamoate (Hydroxyzine Pamoate 25 Mg Cap) 25 mg PO HS PRN PRN Reason: Anxiety Cefepime HCl (Cefepime/Ns 2 Gm/100 Ml) 2 gm in 100 mls @ 200 mls/hr IV Q12H [facility]; Protocol Last Admin: 09/21/21 06:10 Dose: 200 mls/hr Pamidronate Disodium 90 mg/ (Sodium Chloride) 1,010 mls @ 100 mls/hr IV ONCE ONE Stop: 09/21/21 18:05 Sodium Chloride (Nacl 0.45% 1000 Ml) 1,000 mls @ 75 mls/hr IV DIRECT CARMEN Ferric Sodium Gluconate Complex 125 mg/ Sodium Chloride 110 mls @ 100 mls/hr IV ONCE ONE Stop: 09/21/21 16:05 Insulin Glargine (Insulin Glargine 100 Units/Ml) 45 units SUB-Q QHS [facility] Last Admin: 09/20/21 21:57 Dose: 45 units Insulin Human Lispro (Insulin Lispro 100 Unit/Ml) 0 unit SUB-Q ACHS [facility]; Protocol Last Admin: 09/21/21 08:59 Dose: Not Given Levothyroxine Sodium (Levothyroxine 25 Mcg Tab) 25 mcg PO QAM@0600 [facility] Last Admin: 09/21/21 06:10 Dose: Not Given Linagliptin (Linagliptin 5 Mg Tab) 5 mg PO QDDIAB [facility] Last Admin: 09/21/21 09:00 Dose: Not Given Losartan Potassium (Losartan 50 Mg Tab) 100 mg PO QDAY [facility] Last Admin: 09/21/21 09:01 Dose: Not Given Naloxone HCl (Naloxone 0.4 Mg/1 Ml Inj) 0.1 mg IV Q2MIN PRN PRN Reason: Res Rate </= 8 or 02 SAT < 92% Nifedipine (Nifedipine Xl 30 Mg Tab) 30 mg PO Q12HR [facility] Last Admin: 09/21/21 09:03 Dose: Not Given Ondansetron HCl (Ondansetron 4 Mg/2 Ml Inj) 4 mg IV Q8H PRN PRN Reason: Nausea And Vomiting Oxybutynin Chloride (Oxybutynin 5 Mg Tab) 5 mg PO BID [facility] Last Admin: 09/21/21 09:02 Dose: Not Given Oxycodone/Acetaminophen (Oxycodone /Acetaminophen 5-325mg Tab) 1 tab PO Q6H PRN PRN Reason: Pain, Moderate (4-6) Pantoprazole Sodium (Pantoprazole 40 Mg Tab) 40 mg PO DAILY [facility] Last Admin: 09/21/21 09:03 Dose: Not Given Senna/Docusate Sodium (Sennosides/Docusate Sodium 8.6/50 Mg Tab) 2 tab PO Q12H PRN PRN Reason: Laxative Effect Sodium Chloride (Sodium Chloride 0.9% 10 Ml Flush Syringe) 10 ml IV BID [facility] Last Admin: 09/20/21 21:59 Dose: 10 ml Sodium Chloride (Sodium Chloride 0.9% 10 Ml Flush Syringe) 10 ml IV PRN PRN PRN Reason: LINE FLUSH Trazodone HCl (Trazodone 50 Mg Tab) 50 mg PO QHS [facility] Last Admin: 09/20/21 21:58 Dose: 50 mg Review of Systems ROS unobtainable: due to mental status Physical Examination Vital Signs Temp Pulse Resp BP Pulse Ox 98.2 F 98 H 16 183/104 98 09/20/21 00:58 09/20/21 00:58 09/20/21 00:58 09/20/21 00:58 09/20/21 00:58 General appearance: other (AMS not following commands or answering questions) HEENT: Positive: Normocephaly, Mucus Membranes Dry Neck: Positive: trachea midline Cardiac: Positive: Reg Rate and Rhythm Lungs: Positive: Normal Breath Sounds Neuro: Positive: Other (Unable to assess due to patient mental status) Abdomen: Positive: Soft, Active Bowel Sounds Skin: Negative: Rash, Suspicious Lesions, Ulceration Extremities: Present: upper extr. pulses. Absent: edema Results 09/21/21 07:27 09/21/21 07:27 Cardiac Enzymes 09/21/21 Range/Units 07:27 AST 84 H (5-40) units/L CBC 09/21/21 Range/Units 07:27 WBC 16.7 H (4.5-11.0) K/mm3 RBC 5.00 (3.65-5.03) M/mm3 Hgb 12.6 (10.1-14.3) gm/dl Hct 40.8 (30.3-42.9) % Plt Count 326 (140-440) K/mm3 Lymph # (Auto) 1.1 L (1.2-5.4) K/mm3 [place] # (Auto) 1.7 H (0.0-0.8) K/mm3 Eos # (Auto) 0.0 (0.0-0.4) K/mm3 Baso # (Auto) 0.1 (0.0-0.1) K/mm3 Comprehensive Metabolic Panel 09/21/21 Range/Units 07:27 Sodium 151 H (137-145) mmol/L Potassium 4.1 (3.6-5.0) mmol/L Chloride 116.5 H (98-107) mmol/L Carbon Dioxide 25 (22-30) mmol/L BUN 65 H (7-17) mg/dL Creatinine 1.4 H (0.6-1.2) mg/dL Glucose 86 (65-100) mg/dL Calcium > 13.0 H* (8.4-10.2) mg/dL AST 84 H (5-40) units/L ALT 20 (7-56) units/L Alkaline Phosphatase 153 H (35-129) units/L Total Protein 7.3 (6.3-8.2) g/dL Albumin 2.4 L (3.9-5) g/dL - Imaging and Cardiology Echo: pending EKG interpretations - Telemetry EKG Rhythm: Sinus Rhythm - EKG Sinus rhythms and dysrhythmias: sinus rhythm Myocardial infarction: anterior [place] (old age or i Assessment and Plan Patient is 61-year-old female with a past medical history of hypertension, diabetes, CVA, abdominal cancer s/p chemotherapy, hysterectomy who was admitted to the hospital on 09/20/2021 for altered mental status AMS LANDON-nephrology following Pauses on monitor Hypercalcemic Hyponatremic Leukocytosis Hypertension Diabetes History of CVA Metastatic [id number] following Plan: EKG shows sinus tach 101 probable left atrial enlargement. Anterior septal infarct old. No acute ischemic changes Telemetry reviewed. Patient appears to have had 2 events of significant sinus arrest/pause on monitor however overnight patient was trending sinus to sinus tach 90s to low 100s and patient appears hemodynamically is actually hypertensive trending systolic pressures 160s to 170 Hold any AV blaine agents traffic monitor specialist consulted. Further recommendations awaiting EP consult. Patient to be n.p.o. after midnight Discussed with hospitalist due to the significant pauses recommend patient transferred to telemetry and put on pacing pads with rate of 40 in case of further pauses Echo pending Patient in conjunction with Dr. Aquino who agrees with this plan of care - Patient Problems (1) Sinus pause Current Visit: Yes Status: Acute (2) Hypercalcemia Current Visit: Yes Status: Acute (3) Acute metabolic encephalopathy Current Visit: No Status: Acute (4) CVA (cerebral vascular accident) Current Visit: No Status: Acute (5) Debility Current Visit: No Status: Acute (6) Hypertension Current Visit: No Status: Acute (7) Hypokalemia Current Visit: No Status: Acute (8) Metastatic cancer Current Visit: Yes Status: Acute
[2021-09-21] MEDS: CALCITONIN,SALMON,SYNTHETIC 400 UNIT/2 ML INJ MDV IM SCH (14:38)
[2021-09-21] MEDS: FLUTICASONE PROPIONATE NASAL SPRAY 16 GM NS SCH (14:38)
[2021-09-21] MEDS: hydrALAZINE 20 MG/1 ML INJ IV SCH ×2 (14:40→20:33)
[2021-09-21] MEDS ORDERED: SODIUM FERRIC GLUCON/SUCRO 125 MG in SODIUM CHLORIDE 0.9% 100 ML IV ONE (15:00)
--- NOTE | 2021-09-21 15:56 | Hem/Onc Consultation ---
History of Present Illness - Reason for Consult Consult date: 09/21/21 Metastatic abdominal cancer - History of Present Illness Heme consult note Televisit via [facility] CPT 70469 Dx Abdominal cancer This is 61yo female with history of abdominal ca with mets to liver s/p chemotherapy within the last year, HTN, diabetes, CVA, hysterectomy Presents to the ER with confusion; With a recent hospital admission for confusion As per chart review, patient continues to be confused and history was obtained by Planning for hospice as per chart review Abd/pel CT (09/20/21) c/w extensive diffuse metastatic disease involving the liver. Evidence of peritoneal carcinomatosis best seen in the midabdomen below the transverse colon anteriorly. Possible additional disease adjacent to the spleen. Possible fecal impaction and mild associated stercoral colitis in the rectum. Cholelithiasis. DATA REVIEWED BELOW IMP: Extensive abdominal cancer, with mets to the liver Borderline microcytosis, could be related to iron deficiency PLAN: Aredia 90mg Labs to include ammonia level, iron studies End of life discussion may be appropriate Past History Past Medical History: cancer, diabetes, hypertension, stroke Past Surgical History: , hysterectomy (r/t cancer,), Other ( BREAST REDUCTION, TUMMY TUCK,) Social history: full code Family history: no significant family history Medications and Allergies Allergies Allergy/AdvReac Type Severity Reaction Status Date / Time diphenhydramine Allergy Rash/Hives Verified 09/14/21 13:58 [From Benadryl] and Sores on Face Home Medications Medication Instructions Recorded Confirmed Last Taken Type AtorvaSTATin [Lipitor] 20 mg PO QHS 09/12/21 09/20/21 Unknown History Fluticasone [Flonase] 1 spray BN DAILY 09/12/21 09/20/21 Unknown History Gabapentin 300 mg PO BID 09/12/21 09/20/21 Unknown History Insulin Aspart [Insulin Aspart 18 unit SQ TID 09/12/21 09/20/21 Unknown History Flexpen] Insulin Glargine,Hum.rec.anlog 45 unit SQ QHS 09/12/21 09/20/21 Unknown History [Lantus Solostar] Levothyroxine [Synthroid] 25 mcg PO QAM 09/12/21 09/20/21 Unknown History Losartan [Cozaar] 100 mg PO QDAY 09/12/21 09/20/21 Unknown History Omeprazole 40 mg PO DAILY 09/12/21 09/20/21 Unknown History Oxybutynin [Ditropan] 5 mg PO BID 09/12/21 09/20/21 Unknown History Saxagliptin HCl [Onglyza] 5 mg PO DAILY 09/12/21 09/20/21 Unknown History allopurinoL [Zyloprim] 100 mg PO QDAY 09/12/21 09/20/21 Unknown History hydrOXYzine PAMOATE [Vistaril] 25 mg PO HS PRN 09/12/21 09/20/21 Unknown History traZODone [Desyrel] 50 mg PO QHS 09/12/21 09/20/21 Unknown History Albuterol Mdi (or & Nicu Only) 1 puff IH Q6H PRN 09/14/21 09/20/21 Unknown History [ProAir HFA Inhaler] Buprenorphine [Butrans] 1 each TD QWEEK 09/14/21 09/20/21 Unknown History Dapagliflozin Propanediol [Farxiga] 5 mg PO QDAY 09/14/21 09/20/21 Unknown History Oxycodone HCl/Acetaminophen 1 each PO Q8H PRN 09/14/21 09/20/21 Unknown History [Percocet 10/325 mg] Aspirin [Aspirin BABY CHEW TAB] 81 mg PO QDAY #30 tab.chew 09/18/21 09/20/21 Unknown Rx Famotidine [Pepcid] 20 mg PO BID #30 tablet 09/18/21 09/20/21 Unknown Rx Hydralazine HCl 50 mg PO Q8H #90 09/18/21 09/20/21 Unknown Rx NIFEdipine XL [Procardia Xl] 30 mg PO Q12HR #60 tablet 09/18/21 09/20/21 Unknown Rx predniSONE [Deltasone] 20 mg PO QDAY #14 tablet 09/18/21 09/20/21 Unknown Rx Active Meds: Active Medications Acetaminophen (Acetaminophen 325 Mg Tab) 650 mg PO Q4H PRN PRN Reason: Pain MILD(1-3)/Fever >100.5/AMES Albuterol (Albuterol 2.5 Mg/3 Ml Nebu) 2.5 mg IH Q4HRT PRN PRN Reason: Shortness Of Breath Allopurinol (Allopurinol 100 Mg Tab) 100 mg PO QDAY [facility] Last Admin: 09/21/21 09:03 Dose: Not Given Aspirin (Aspirin 81 Mg Tab Chew) 81 mg PO QDAY [facility] Last Admin: 09/21/21 09:01 Dose: Not Given Atorvastatin Calcium (Atorvastatin 20 Mg Tab) 20 mg PO QHS [facility] Last Admin: 09/20/21 21:59 Dose: 20 mg Calcitonin [place] (Calcitonin,[place],Synthetic 400 Unit/2 Ml Inj Mdv) 400 unit IM Q12HR [facility] Last Admin: 09/21/21 14:38 Dose: 400 unit Cinacalcet (Cinacalcet 30 Mg Tab) 30 mg PO QDAY [facility] Last Admin: 09/21/21 09:03 Dose: Not Given Dextrose (Dextrose 10% *Hypoglycemia) 0 ml IV PRN PRN PRN Reason: Hypoglycemia Fluticasone Propionate (Fluticasone Propionate Nasal [place] 16 Gm) 50 mcg NS DAILY [facility] Last Admin: 09/21/21 14:38 Dose: Not Given Gabapentin (Gabapentin 300 Mg Cap) 300 mg PO BID [facility] Last Admin: 09/21/21 09:02 Dose: Not Given Hydralazine HCl (Hydralazine 20 Mg/1 Ml Inj) 10 mg IV Q4H PRN PRN Reason: Hypertension Last Admin: 09/21/21 06:20 Dose: 10 mg Hydralazine HCl (Hydralazine 25 Mg Tab) 50 mg PO Q8HR [facility] Last Admin: 09/21/21 06:08 Dose: Not Given Hydralazine HCl (Hydralazine 20 Mg/1 Ml Inj) 20 mg IV Q8H [facility] Last Admin: 09/21/21 14:40 Dose: 20 mg Hydroxyzine Pamoate (Hydroxyzine Pamoate 25 Mg Cap) 25 mg PO HS PRN PRN Reason: Anxiety Cefepime HCl (Cefepime/Ns 2 Gm/100 Ml) 2 gm in 100 mls @ 200 mls/hr IV Q12H [facility]; Protocol Last Admin: 09/21/21 06:10 Dose: 200 mls/hr Pamidronate Disodium 90 mg/ (Sodium Chloride) 1,010 mls @ 100 mls/hr IV ONCE ONE Stop: 09/21/21 18:05 Last Admin: 09/21/21 13:38 Dose: 100 mls/hr Sodium Chloride (Nacl 0.45% 1000 Ml) 1,000 mls @ 75 mls/hr IV DIRECT CARMEN Ferric Sodium Gluconate Complex 125 mg/ Sodium Chloride 110 mls @ 100 mls/hr IV ONCE ONE Stop: 09/21/21 16:05 Insulin Glargine (Insulin Glargine 100 Units/Ml) 45 units SUB-Q QHS [facility] Last Admin: 09/20/21 21:57 Dose: 45 units Insulin Human Lispro (Insulin Lispro 100 Unit/Ml) 0 unit SUB-Q ACHS [facility]; Protocol Last Admin: 09/21/21 14:39 Dose: Not Given Levothyroxine Sodium (Levothyroxine 25 Mcg Tab) 25 mcg PO QAM@0600 [facility] Last Admin: 09/21/21 06:10 Dose: Not Given Linagliptin (Linagliptin 5 Mg Tab) 5 mg PO QDDIAB [facility] Last Admin: 09/21/21 09:00 Dose: Not Given Losartan Potassium (Losartan 50 Mg Tab) 100 mg PO QDAY [facility] Last Admin: 09/21/21 09:01 Dose: Not Given Naloxone HCl (Naloxone 0.4 Mg/1 Ml Inj) 0.1 mg IV Q2MIN PRN PRN Reason: Res Rate </= 8 or 02 SAT < 92% Nifedipine (Nifedipine Xl 30 Mg Tab) 30 mg PO Q12HR [facility] Last Admin: 09/21/21 09:03 Dose: Not Given Ondansetron HCl (Ondansetron 4 Mg/2 Ml Inj) 4 mg IV Q8H PRN PRN Reason: Nausea And Vomiting Oxybutynin Chloride (Oxybutynin 5 Mg Tab) 5 mg PO BID [facility] Last Admin: 09/21/21 09:02 Dose: Not Given Oxycodone/Acetaminophen (Oxycodone /Acetaminophen 5-325mg Tab) 1 tab PO Q6H PRN PRN Reason: Pain, Moderate (4-6) Pantoprazole Sodium (Pantoprazole 40 Mg Tab) 40 mg PO DAILY [facility] Last Admin: 09/21/21 09:03 Dose: Not Given Senna/Docusate Sodium (Sennosides/Docusate Sodium 8.6/50 Mg Tab) 2 tab PO Q12H PRN PRN Reason: Laxative Effect Sodium Chloride (Sodium Chloride 0.9% 10 Ml Flush Syringe) 10 ml IV BID [facility] Last Admin: 09/21/21 14:39 Dose: Not Given Sodium Chloride (Sodium Chloride 0.9% 10 Ml Flush Syringe) 10 ml IV PRN PRN PRN Reason: LINE FLUSH Trazodone HCl (Trazodone 50 Mg Tab) 50 mg PO QHS [facility] Last Admin: 09/20/21 21:58 Dose: 50 mg Exam - Constitutional Vitals: Last Vital Signs Temp 98.2 F 09/21/21 12:16 Pulse 110 H 09/21/21 12:16 Resp 24 09/21/21 12:16 BP 147/78 09/21/21 12:16 Pulse Ox 91 09/21/21 12:16 Results - Labs lab Results: Laboratory Results - last 24 hr 09/20/21 09/20/21 09/20/21 07:40 10:51 16:04 WBC RBC Hgb Hct MCV MCH MCHC RDW Plt Count Lymph % (Auto) [place] % (Auto) Eos % (Auto) Baso % (Auto) Lymph # (Auto) [place] # (Auto) Eos # (Auto) Baso # (Auto) Seg Neutrophils % Seg Neutrophils # Sodium Potassium Chloride Carbon Dioxide Anion Gap BUN Creatinine Estimated GFR BUN/Creatinine Ratio Glucose POC Glucose 113 H 113 H 175 H Calcium Iron TIBC Total Bilirubin AST ALT Alkaline Phosphatase Ammonia Total Protein Albumin Albumin/Globulin Ratio Urine Creatinine Protein/Creatinin Ratio Urine Sodium Urine Total Protein 09/21/21 09/21/21 09/21/21 05:35 07:27 07:27 WBC 16.7 H RBC 5.00 Hgb 12.6 Hct 40.8 MCV 82 MCH 25 L MCHC 31 RDW 14.6 Plt Count 326 Lymph % (Auto) 6.4 L [place] % (Auto) 10.3 H Eos % (Auto) 0.1 Baso % (Auto) 0.3 Lymph # (Auto) 1.1 L [place] # (Auto) 1.7 H Eos # (Auto) 0.0 Baso # (Auto) 0.1 Seg Neutrophils % 82.9 H Seg Neutrophils # 13.8 H Sodium 151 H Potassium 4.1 Chloride 116.5 H Carbon Dioxide 25 Anion Gap 14 BUN 65 H Creatinine 1.4 H Estimated GFR 46 BUN/Creatinine Ratio 46 Glucose 86 POC Glucose Calcium > 13.0 H* Iron 19 L TIBC 148 L Total Bilirubin 0.50 AST 84 H ALT 20 Alkaline Phosphatase 153 H Ammonia Total Protein 7.3 Albumin 2.4 L Albumin/Globulin Ratio 0.5 Urine Creatinine 61.8 H Protein/Creatinin Ratio 9.32 Urine Sodium 21 Urine Total Protein 576 H 09/21/21 07:27 WBC RBC Hgb Hct MCV MCH MCHC RDW Plt Count Lymph % (Auto) [place] % (Auto) Eos % (Auto) Baso % (Auto) Lymph # (Auto) [place] # (Auto) Eos # (Auto) Baso # (Auto) Seg Neutrophils % Seg Neutrophils # Sodium Potassium Chloride Carbon Dioxide Anion Gap BUN Creatinine Estimated GFR BUN/Creatinine Ratio Glucose POC Glucose Calcium Iron TIBC Total Bilirubin AST ALT Alkaline Phosphatase Ammonia 28.0 Total Protein Albumin Albumin/Globulin Ratio Urine Creatinine Protein/Creatinin Ratio Urine Sodium Urine Total Protein
--- NOTE | 2021-09-21 16:18 | Hem/Onc Consultation ---
History of Present Illness - Reason for Consult Consult date: 09/21/21 Abdominal cancer with mets - History of Present Illness Heme/Onc Consult Televisit via [facility] CPT 72980 Dx Abdominal Cancer This is 61yo female with history of abdominal ca with mets to liver s/p chemotherapy within the last year, HTN, diabetes, CVA, hysterectomy Presents to the ER with confusion; With a recent hospital admission for confusion As per chart review, patient continues to be confused and history was obtained by Planning for hospice as per chart review Abd/pel CT (09/20/21) c/w extensive diffuse metastatic disease involving the liver. Evidence of peritoneal carcinomatosis best seen in the midabdomen below the transverse colon anteriorly. Possible additional disease adjacent to the spleen. Possible fecal impaction and mild associated stercoral colitis in the rectum. Cholelithiasis. Patient examined at bedside not at bedside at this time Patient is not oriented to place, time or situation, not answering questions No overt blood noted or reported DATA REVIEWED BELOW IMP: Extensive abdominal cancer, with mets to the liver Hypercalcemia, related to malignancy S/p Calcitonin q12h Borderline microcytosis, related to iron deficiency with 12% iron saturation PLAN: Aredia 90mg today Ferrlicet 125mg IV today Patient may not be a candidate at this time for antitumor therapy due to current condition End of life discussion may be appropriate Laboratory Last Values WBC 16.7 K/mm3 (4.5-11.0) H 09/21/21 07:27 Hgb 12.6 gm/dl (10.1-14.3) 09/21/21 07:27 Hct 40.8 % (30.3-42.9) 09/21/21 07:27 MCV 82 fl (79-97) 09/21/21 07:27 MCH 25 pg (28-32) L 09/21/21 07:27 Plt Count 326 K/mm3 (140-440) 09/21/21 07:27 Lymph % (Auto) 6.4 % (13.4-35.0) L 09/21/21 07:27 [place] % (Auto) 10.3 % (0.0-7.3) H 09/21/21 07:27 Eos % (Auto) 0.1 % (0.0-4.3) 09/21/21 07:27 Baso % (Auto) 0.3 % (0.0-1.8) 09/21/21 07:27 Lymph # (Auto) 1.1 K/mm3 (1.2-5.4) L 09/21/21 07:27 [place] # (Auto) 1.7 K/mm3 (0.0-0.8) H 09/21/21 07:27 Eos # (Auto) 0.0 K/mm3 (0.0-0.4) 09/21/21 07:27 Baso # (Auto) 0.1 K/mm3 (0.0-0.1) 09/21/21 07:27 Seg Neutrophils % 82.9 % (40.0-70.0) H 09/21/21 07:27 Seg Neutrophils # 13.8 K/mm3 (1.8-7.7) H 09/21/21 07:27 APTT 27.3 Sec. (24.2-36.6) 09/20/21 01:44 Creatinine 1.4 mg/dL (0.6-1.2) H 09/21/21 07:27 Lactic Acid 1.70 mmol/L (0.7-2.0) 09/20/21 01:44 Calcium > 13.0 mg/dL (8.4-10.2) H* 09/21/21 07:27 Phosphorus 3.90 mg/dL (2.5-4.5) 09/20/21 10:05 Iron 19 ug/dL (37-170) L 09/21/21 07:27 TIBC 148 mcg/dL (250-450) L 09/21/21 07:27 Total Bilirubin 0.50 mg/dL (0.1-1.2) 09/21/21 07:27 AST 84 units/L (5-40) H 09/21/21 07:27 ALT 20 units/L (7-56) 09/21/21 07:27 Alkaline Phosphatase 153 units/L (35-129) H 09/21/21 07:27 Ammonia 28.0 umol/L (25-60) 09/21/21 07:27 TSH 1.400 mlU/mL (0.270-4.200) 09/20/21 07:46 Free T4 1.33 ng/dL (0.76-1.46) 09/20/21 07:46 PTH Intact 310.7 pg/mL (15-65) H 09/20/21 07:46 Ur Barbiturates Screen Negative 09/20/21 04:47 Ur Phencyclidine Scrn Negative 09/20/21 04:47 Ur Amphetamines Screen Negative 09/20/21 04:47 U Benzodiazepines Scrn Negative 09/20/21 04:47 Urine Cocaine Screen Negative 09/20/21 04:47 U Marijuana (THC) Screen Negative 09/20/21 04:47 Drugs of Abuse Note Disclamer 09/20/21 04:47 Blood Type B POSITIVE 09/20/21 08:00 Antibody Screen Negative 09/20/21 08:00 Past History Past Medical History: cancer, diabetes, hypertension, stroke Past Surgical History: , hysterectomy (r/t cancer,), Other ( BREAST REDUCTION, TUMMY TUCK,) Social history: full code Family history: no significant family history Medications and Allergies Allergies Allergy/AdvReac Type Severity Reaction Status Date / Time diphenhydramine Allergy Rash/Hives Verified 09/14/21 13:58 [From Benadryl] and Sores on Face Home Medications Medication Instructions Recorded Confirmed Last Taken Type AtorvaSTATin [Lipitor] 20 mg PO QHS 09/12/21 09/20/21 Unknown History Fluticasone [Flonase] 1 spray BN DAILY 09/12/21 09/20/21 Unknown History Gabapentin 300 mg PO BID 09/12/21 09/20/21 Unknown History Insulin Aspart [Insulin Aspart 18 unit SQ TID 09/12/21 09/20/21 Unknown History Flexpen] Insulin Glargine,Hum.rec.anlog 45 unit SQ QHS 09/12/21 09/20/21 Unknown History [Lantus Solostar] Levothyroxine [Synthroid] 25 mcg PO QAM 09/12/21 09/20/21 Unknown History Losartan [Cozaar] 100 mg PO QDAY 09/12/21 09/20/21 Unknown History Omeprazole 40 mg PO DAILY 09/12/21 09/20/21 Unknown History Oxybutynin [Ditropan] 5 mg PO BID 09/12/21 09/20/21 Unknown History Saxagliptin HCl [Onglyza] 5 mg PO DAILY 09/12/21 09/20/21 Unknown History allopurinoL [Zyloprim] 100 mg PO QDAY 09/12/21 09/20/21 Unknown History hydrOXYzine PAMOATE [Vistaril] 25 mg PO HS PRN 09/12/21 09/20/21 Unknown History traZODone [Desyrel] 50 mg PO QHS 09/12/21 09/20/21 Unknown History Albuterol Mdi (or & Nicu Only) 1 puff IH Q6H PRN 09/14/21 09/20/21 Unknown History [ProAir HFA Inhaler] Buprenorphine [Butrans] 1 each TD QWEEK 09/14/21 09/20/21 Unknown History Dapagliflozin Propanediol [Farxiga] 5 mg PO QDAY 09/14/21 09/20/21 Unknown History Oxycodone HCl/Acetaminophen 1 each PO Q8H PRN 09/14/21 09/20/21 Unknown History [Percocet 10/325 mg] Aspirin [Aspirin BABY CHEW TAB] 81 mg PO QDAY #30 tab.chew 09/18/21 09/20/21 Unknown Rx Famotidine [Pepcid] 20 mg PO BID #30 tablet 09/18/21 09/20/21 Unknown Rx Hydralazine HCl 50 mg PO Q8H #90 09/18/21 09/20/21 Unknown Rx NIFEdipine XL [Procardia Xl] 30 mg PO Q12HR #60 tablet 09/18/21 09/20/21 Unknown Rx predniSONE [Deltasone] 20 mg PO QDAY #14 tablet 09/18/21 09/20/21 Unknown Rx Active Meds: Active Medications Acetaminophen (Acetaminophen 325 Mg Tab) 650 mg PO Q4H PRN PRN Reason: Pain MILD(1-3)/Fever >100.5/AMES Albuterol (Albuterol 2.5 Mg/3 Ml Nebu) 2.5 mg IH Q4HRT PRN PRN Reason: Shortness Of Breath Allopurinol (Allopurinol 100 Mg Tab) 100 mg PO QDAY [facility] Last Admin: 09/21/21 09:03 Dose: Not Given Aspirin (Aspirin 81 Mg Tab Chew) 81 mg PO QDAY [facility] Last Admin: 09/21/21 09:01 Dose: Not Given Atorvastatin Calcium (Atorvastatin 20 Mg Tab) 20 mg PO QHS [facility] Last Admin: 09/20/21 21:59 Dose: 20 mg Calcitonin [place] (Calcitonin,[place],Synthetic 400 Unit/2 Ml Inj Mdv) 400 unit IM Q12HR [facility] Last Admin: 09/21/21 14:38 Dose: 400 unit Cinacalcet (Cinacalcet 30 Mg Tab) 30 mg PO QDAY [facility] Last Admin: 09/21/21 09:03 Dose: Not Given Dextrose (Dextrose 10% *Hypoglycemia) 0 ml IV PRN PRN PRN Reason: Hypoglycemia Fluticasone Propionate (Fluticasone Propionate Nasal [place] 16 Gm) 50 mcg NS DAILY [facility] Last Admin: 09/21/21 14:38 Dose: Not Given Gabapentin (Gabapentin 300 Mg Cap) 300 mg PO BID [facility] Last Admin: 09/21/21 09:02 Dose: Not Given Hydralazine HCl (Hydralazine 20 Mg/1 Ml Inj) 10 mg IV Q4H PRN PRN Reason: Hypertension Last Admin: 09/21/21 06:20 Dose: 10 mg Hydralazine HCl (Hydralazine 25 Mg Tab) 50 mg PO Q8HR [facility] Last Admin: 09/21/21 06:08 Dose: Not Given Hydralazine HCl (Hydralazine 20 Mg/1 Ml Inj) 20 mg IV Q8H [facility] Last Admin: 09/21/21 14:40 Dose: 20 mg Hydroxyzine Pamoate (Hydroxyzine Pamoate 25 Mg Cap) 25 mg PO HS PRN PRN Reason: Anxiety Cefepime HCl (Cefepime/Ns 2 Gm/100 Ml) 2 gm in 100 mls @ 200 mls/hr IV Q12H [facility]; Protocol Last Admin: 09/21/21 06:10 Dose: 200 mls/hr Pamidronate Disodium 90 mg/ (Sodium Chloride) 1,010 mls @ 100 mls/hr IV ONCE ONE Stop: 09/21/21 18:05 Last Admin: 09/21/21 13:38 Dose: 100 mls/hr Sodium Chloride (Nacl 0.45% 1000 Ml) 1,000 mls @ 75 mls/hr IV DIRECT [facility] Insulin Glargine (Insulin Glargine 100 Units/Ml) 25 units SUB-Q QHS [facility] Insulin Human Lispro (Insulin Lispro 100 Unit/Ml) 0 unit SUB-Q ACHS [facility]; Protocol Last Admin: 09/21/21 14:39 Dose: Not Given Levothyroxine Sodium (Levothyroxine 25 Mcg Tab) 25 mcg PO QAM@0600 [facility] Last Admin: 09/21/21 06:10 Dose: Not Given Linagliptin (Linagliptin 5 Mg Tab) 5 mg PO QDDIAB [facility] Last Admin: 09/21/21 09:00 Dose: Not Given Losartan Potassium (Losartan 50 Mg Tab) 100 mg PO QDAY [facility] Last Admin: 09/21/21 09:01 Dose: Not Given Naloxone HCl (Naloxone 0.4 Mg/1 Ml Inj) 0.1 mg IV Q2MIN PRN PRN Reason: Res Rate </= 8 or 02 SAT < 92% Nifedipine (Nifedipine Xl 30 Mg Tab) 30 mg PO Q12HR [facility] Last Admin: 09/21/21 09:03 Dose: Not Given Ondansetron HCl (Ondansetron 4 Mg/2 Ml Inj) 4 mg IV Q8H PRN PRN Reason: Nausea And Vomiting Oxybutynin Chloride (Oxybutynin 5 Mg Tab) 5 mg PO BID [facility] Last Admin: 09/21/21 09:02 Dose: Not Given Oxycodone/Acetaminophen (Oxycodone /Acetaminophen 5-325mg Tab) 1 tab PO Q6H PRN PRN Reason: Pain, Moderate (4-6) Pantoprazole Sodium (Pantoprazole 40 Mg Tab) 40 mg PO DAILY [facility] Last Admin: 09/21/21 09:03 Dose: Not Given Senna/Docusate Sodium (Sennosides/Docusate Sodium 8.6/50 Mg Tab) 2 tab PO Q12H PRN PRN Reason: Laxative Effect Sodium Chloride (Sodium Chloride 0.9% 10 Ml Flush Syringe) 10 ml IV BID [facility] Last Admin: 09/21/21 14:39 Dose: Not Given Sodium Chloride (Sodium Chloride 0.9% 10 Ml Flush Syringe) 10 ml IV PRN PRN PRN Reason: LINE FLUSH Trazodone HCl (Trazodone 50 Mg Tab) 50 mg PO QHS [facility] Last Admin: 09/20/21 21:58 Dose: 50 mg Exam - Constitutional Vitals: Last Vital Signs Temp 98.2 F 09/21/21 12:16 Pulse 110 H 09/21/21 12:16 Resp 24 09/21/21 12:16 BP 147/78 09/21/21 12:16 Pulse Ox 91 09/21/21 12:16 Results - Labs lab Results: Laboratory Results - last 24 hr 09/20/21 09/20/21 09/20/21 07:40 10:51 16:04 WBC RBC Hgb Hct MCV MCH MCHC RDW Plt Count Lymph % (Auto) [place] % (Auto) Eos % (Auto) Baso % (Auto) Lymph # (Auto) [place] # (Auto) Eos # (Auto) Baso # (Auto) Seg Neutrophils % Seg Neutrophils # Sodium Potassium Chloride Carbon Dioxide Anion Gap BUN Creatinine Estimated GFR BUN/Creatinine Ratio Glucose POC Glucose 113 H 113 H 175 H Calcium Iron TIBC Total Bilirubin AST ALT Alkaline Phosphatase Ammonia Total Protein Albumin Albumin/Globulin Ratio Urine Creatinine Protein/Creatinin Ratio Urine Sodium Urine Total Protein 09/21/21 09/21/21 09/21/21 05:35 07:27 07:27 WBC 16.7 H RBC 5.00 Hgb 12.6 Hct 40.8 MCV 82 MCH 25 L MCHC 31 RDW 14.6 Plt Count 326 Lymph % (Auto) 6.4 L [place] % (Auto) 10.3 H Eos % (Auto) 0.1 Baso % (Auto) 0.3 Lymph # (Auto) 1.1 L [place] # (Auto) 1.7 H Eos # (Auto) 0.0 Baso # (Auto) 0.1 Seg Neutrophils % 82.9 H Seg Neutrophils # 13.8 H Sodium 151 H Potassium 4.1 Chloride 116.5 H Carbon Dioxide 25 Anion Gap 14 BUN 65 H Creatinine 1.4 H Estimated GFR 46 BUN/Creatinine Ratio 46 Glucose 86 POC Glucose Calcium > 13.0 H* Iron 19 L TIBC 148 L Total Bilirubin 0.50 AST 84 H ALT 20 Alkaline Phosphatase 153 H Ammonia Total Protein 7.3 Albumin 2.4 L Albumin/Globulin Ratio 0.5 Urine Creatinine 61.8 H Protein/Creatinin Ratio 9.32 Urine Sodium 21 Urine Total Protein 576 H 09/21/21 07:27 WBC RBC Hgb Hct MCV MCH MCHC RDW Plt Count Lymph % (Auto) [place] % (Auto) Eos % (Auto) Baso % (Auto) Lymph # (Auto) [place] # (Auto) Eos # (Auto) Baso # (Auto) Seg Neutrophils % Seg Neutrophils # Sodium Potassium Chloride Carbon Dioxide Anion Gap BUN Creatinine Estimated GFR BUN/Creatinine Ratio Glucose POC Glucose Calcium Iron TIBC Total Bilirubin AST ALT Alkaline Phosphatase Ammonia 28.0 Total Protein Albumin Albumin/Globulin Ratio Urine Creatinine Protein/Creatinin Ratio Urine Sodium Urine Total Protein
[2021-09-21] MEDS: traZODone 50 MG TAB PO SCH (22:52)
[2021-09-21] MEDS: INSULIN GLARGINE 100 UNITS/ML SUB-Q SCH (23:40)
[2021-09-22] MEDS: CALCITONIN,SALMON,SYNTHETIC 400 UNIT/2 ML INJ MDV IM SCH ×2 (00:34→21:59)
[2021-09-22] MEDS: INSULIN LISPRO 100 UNIT/ML SUB-Q SCH ×2 (01:47→05:29)
[2021-09-22] MEDS: hydrALAZINE 20 MG/1 ML INJ IV SCH ×3 (03:28→20:00)
[2021-09-22] MEDS: D5W/0.45% NACL 1,000 ML IV SCH ×2 (05:26→21:25)
[2021-09-22] MEDS: LEVOTHYROXINE 25 MCG TAB PO SCH (05:30)
[2021-09-22] MEDS: CEFEPIME/NS 2 GM/100 ML 2 GM/100 ML BAG IV SCH ×2 (05:32→17:53)
[2021-09-22 05:41] LABS: Hematocrit 40.3 % (30.3-42.9); Hemoglobin 12.6 gm/dl (10.1-14.3); Mean Corpuscular HGB Conc 31 % (30-34); Mean Corpuscular Volume 82 fl (79-97); Platelet Count 293 K/mm3 (140-440); Red Blood Count 4.94 M/mm3 (3.65-5.03)
[2021-09-22 05:56] LABS: BUN/Creatinine Ratio 51; Blood Urea Nitrogen 72 mg/dL (7-17); Hemolysis Index 15
[2021-09-22 06:11] LABS: Calcium > 13.0 mg/dL (8.4-10.2)
--- NOTE | 2021-09-22 08:18 | Progress Note ---
Assessment and Plan 1. Acute kidney injury: Likely vasomotor [facility] in the setting of volume depletion. ATN. Continue IV fluids. Monitor renal function. BUN is increasing. Avoid nephrotoxic agents. Meds dosage based on GFR. 2. Hypercalcemia, POA: 2/2 abdominal cancer. Elevated PTH; NM parathyroid scan negative. 09/21: s/p Pamidronate. On Calcitonin. Unable to take Cinacalcet. Monitor Calcium level. 3. FEN: Hypernatremia, hypotonic IV fluids, monitor. Replete lytes. Monitor lytes and volume status. 4. Acute metabolic encephalopathy, POA: Monitor. 5. Extensive abdominal cancer, with mets to the liver, POA: Followed by Heme-Onc. 6. Nephrotic syndrome: ?2/2 diabetic nephropathy. 7. History of CVA in the past. 8. DM: SSI. Monitor. 9. Hypertension. 10. Severe protein calorie malnutrition // Failure to thrive. Prognosis is poor. Subjective: Patient was seen and examined at the bedside. Staff at the bedside. Examination: General appearance: well-developed, appears stated age, no distress HEENT: atraumatic Neck: trachea midline Respiratory: ctab Heart: S1S2, regular, no murmur Abdomen: soft, bowel sounds heard, NT Integumentary: no obvious rash Neurologic: stuporous Ext: no edema Subjective Date of service: 09/22/21 Objective - Vital Signs Vital signs: Vital Signs - 12hr 09/21/21 09/21/21 09/21/21 20:31 20:33 20:51 Temperature Pulse Rate 105 H Pulse Rate [ Apical] Respiratory 19 Rate Blood Pressure 131/59 131/59 O2 Sat by Pulse 97 98 Oximetry 09/21/21 09/21/21 09/21/21 21:00 21:30 22:00 Temperature Pulse Rate 106 H 110 H 106 H Pulse Rate [ 111 H Apical] Respiratory 21 22 20 Rate Blood Pressure 146/73 166/79 161/76 O2 Sat by Pulse 98 97 97 Oximetry 09/21/21 09/21/21 09/21/21 22:31 22:39 23:01 Temperature Pulse Rate 105 H 113 H 115 H Pulse Rate [ Apical] Respiratory 21 21 20 Rate Blood Pressure 157/50 157/50 140/83 O2 Sat by Pulse 98 98 98 Oximetry 09/21/21 09/21/21 09/22/21 23:31 23:34 00:01 Temperature 98.9 F Pulse Rate 108 H 109 H Pulse Rate [ Apical] Respiratory 20 14 Rate Blood Pressure 157/85 167/86 O2 Sat by Pulse 98 98 Oximetry 09/22/21 09/22/21 09/22/21 00:30 01:01 01:30 Temperature Pulse Rate 104 H 107 H 99 H Pulse Rate [ Apical] Respiratory 19 16 27 H Rate Blood Pressure 177/77 175/88 180/86 O2 Sat by Pulse 98 98 97 Oximetry 09/22/21 09/22/21 09/22/21 02:00 02:30 03:00 Temperature Pulse Rate 105 H 109 H 110 H Pulse Rate [ Apical] Respiratory 16 19 14 Rate Blood Pressure 171/86 171/89 176/91 O2 Sat by Pulse 97 97 98 Oximetry 09/22/21 09/22/21 09/22/21 03:30 03:45 04:00 Temperature 97.5 F L Pulse Rate 113 H 114 H Pulse Rate [ Apical] Respiratory 17 24 Rate Blood Pressure 178/83 159/80 O2 Sat by Pulse 99 98 Oximetry 09/22/21 09/22/21 09/22/21 04:30 05:00 05:30 Temperature Pulse Rate 114 H 116 H 104 H Pulse Rate [ Apical] Respiratory 11 L 26 H 21 Rate Blood Pressure 157/77 160/134 179/73 O2 Sat by Pulse 98 97 96 Oximetry 09/22/21 06:00 Temperature Pulse Rate 113 H Pulse Rate [ Apical] Respiratory 21 Rate Blood Pressure 184/80 O2 Sat by Pulse 99 Oximetry - Lab 09/22/21 05:23 09/22/21 05:23 Most recent lab results Calcium > 13.0 mg/dL (8.4-10.2) H* 09/22/21 05:23 Phosphorus 3.90 mg/dL (2.5-4.5) 09/20/21 10:05 Urine Creatinine 61.8 mg/dL (0.1-20.0) H 09/21/21 05:35 Urine Sodium 21 mmol/L 09/21/21 05:35 Urine Total Protein 576 mg/dL (5-11.8) H 09/21/21 05:35 Medications & Allergies - Medications Allergies/Adverse Reactions: Allergies diphenhydramine [From Benadryl] Allergy (Verified 09/14/21 13:58) Rash/Hives and Sores on Face Home Medications: Home Medications Medication Instructions Recorded Confirmed Last Taken Type AtorvaSTATin [Lipitor] 20 mg PO QHS 09/12/21 09/20/21 Unknown History Fluticasone [Flonase] 1 spray BN DAILY 09/12/21 09/20/21 Unknown History Gabapentin 300 mg PO BID 09/12/21 09/20/21 Unknown History Insulin Aspart [Insulin Aspart 18 unit SQ TID 09/12/21 09/20/21 Unknown History Flexpen] Insulin Glargine,Hum.rec.anlog 45 unit SQ QHS 09/12/21 09/20/21 Unknown History [Lantus Solostar] Levothyroxine [Synthroid] 25 mcg PO QAM 09/12/21 09/20/21 Unknown History Losartan [Cozaar] 100 mg PO QDAY 09/12/21 09/20/21 Unknown History Omeprazole 40 mg PO DAILY 09/12/21 09/20/21 Unknown History Oxybutynin [Ditropan] 5 mg PO BID 09/12/21 09/20/21 Unknown History Saxagliptin HCl [Onglyza] 5 mg PO DAILY 09/12/21 09/20/21 Unknown History allopurinoL [Zyloprim] 100 mg PO QDAY 09/12/21 09/20/21 Unknown History hydrOXYzine PAMOATE [Vistaril] 25 mg PO HS PRN 09/12/21 09/20/21 Unknown History traZODone [Desyrel] 50 mg PO QHS 09/12/21 09/20/21 Unknown History Albuterol Mdi (or & Nicu Only) 1 puff IH Q6H PRN 09/14/21 09/20/21 Unknown History [ProAir HFA Inhaler] Buprenorphine [Butrans] 1 each TD QWEEK 09/14/21 09/20/21 Unknown History Dapagliflozin Propanediol [Farxiga] 5 mg PO QDAY 09/14/21 09/20/21 Unknown History Oxycodone HCl/Acetaminophen 1 each PO Q8H PRN 09/14/21 09/20/21 Unknown History [Percocet 10/325 mg] Aspirin [Aspirin BABY CHEW TAB] 81 mg PO QDAY #30 tab.chew 09/18/21 09/20/21 Unknown Rx Famotidine [Pepcid] 20 mg PO BID #30 tablet 09/18/21 09/20/21 Unknown Rx Hydralazine HCl 50 mg PO Q8H #90 09/18/21 09/20/21 Unknown Rx NIFEdipine XL [Procardia Xl] 30 mg PO Q12HR #60 tablet 09/18/21 09/20/21 Unknown Rx predniSONE [Deltasone] 20 mg PO QDAY #14 tablet 09/18/21 09/20/21 Unknown Rx Active Medications: Generic Name Dose Route Start Last Admin Trade Name Freq PRN Reason Stop Dose Admin Acetaminophen 650 mg 09/20/21 08:00 Acetaminophen 325 Mg Tab PO Q4H PRN Pain MILD(1-3)/Fever >100.5/AMES Albuterol 2.5 mg 09/20/21 08:00 Albuterol 2.5 Mg/3 Ml Nebu IH Q4HRT PRN Shortness Of Breath Allopurinol 100 mg 09/20/21 10:00 09/21/21 09:03 Allopurinol 100 Mg Tab PO Not Given QDAY [facility] Aspirin 81 mg 09/20/21 10:00 09/21/21 09:01 Aspirin 81 Mg Tab Chew PO Not Given QDAY [facility] Atorvastatin Calcium 20 mg 09/20/21 22:00 09/21/21 22:53 Atorvastatin 20 Mg Tab PO Not Given QHS [facility] Calcitonin [place] 400 unit 09/20/21 12:00 09/22/21 00:34 Calcitonin,[place],Synthetic 400 Unit/2 Ml Inj Mdv IM 400 unit Q12HR [facility] Administration Cinacalcet 30 mg 09/20/21 11:00 09/21/21 09:03 Cinacalcet 30 Mg Tab PO Not Given QDAY [facility] Dextrose 0 ml 09/20/21 08:00 09/22/21 05:05 Dextrose 10% *Hypoglycemia IV 125 ml PRN PRN Administration Hypoglycemia Fluticasone Propionate 50 mcg 09/20/21 10:00 09/21/21 14:38 Fluticasone Propionate Nasal [place] 16 Gm NS Not Given DAILY [facility] Gabapentin 300 mg 09/20/21 10:00 09/21/21 22:52 Gabapentin 300 Mg Cap PO Not Given BID [facility] Hydralazine HCl 10 mg 09/20/21 08:00 09/21/21 06:20 Hydralazine 20 Mg/1 Ml Inj IV 10 mg Q4H PRN Administration Hypertension Hydralazine HCl 20 mg 09/21/21 12:00 09/22/21 03:28 Hydralazine 20 Mg/1 Ml Inj IV 20 mg Q8H [facility] Administration Hydroxyzine Pamoate 25 mg 09/20/21 22:00 Hydroxyzine Pamoate 25 Mg Cap PO HS PRN Anxiety Cefepime HCl 2 gm in 100 mls @ 200 mls/hr 09/20/21 18:00 09/22/21 05:32 Cefepime/Ns 2 Gm/100 Ml IV 200 mls/hr Q12H [facility] Administration Protocol Dextrose/Sodium Chloride 1,000 mls @ 75 mls/hr 09/22/21 06:00 09/22/21 05:26 D5/0.45ns IV 75 mls/hr DIRECT [facility] Administration Insulin Glargine 25 units 09/21/21 16:07 09/21/21 23:40 Insulin Glargine 100 Units/Ml SUB-Q 25 units QHS [facility] Administration Insulin Human Lispro 0 unit 09/22/21 00:00 09/22/21 05:29 Insulin Lispro 100 Unit/Ml SUB-Q Not Given Q6HR [facility] Protocol Levothyroxine Sodium 25 mcg 09/20/21 10:00 09/22/21 05:30 Levothyroxine 25 Mcg Tab PO Not Given QAM@0600 [facility] Linagliptin 5 mg 09/20/21 11:00 09/21/21 09:00 Linagliptin 5 Mg Tab PO Not Given QDDIAB [facility] Losartan Potassium 100 mg 09/20/21 10:00 09/21/21 09:01 Losartan 50 Mg Tab PO Not Given QDAY [facility] Naloxone HCl 0.1 mg 09/20/21 08:00 Naloxone 0.4 Mg/1 Ml Inj IV Q2MIN PRN Res Rate </= 8 or 02 SAT < 92% Nifedipine 30 mg 09/20/21 10:00 09/21/21 22:53 Nifedipine Xl 30 Mg Tab PO Not Given Q12HR [facility] Ondansetron HCl 4 mg 09/20/21 08:00 Ondansetron 4 Mg/2 Ml Inj IV Q8H PRN Nausea And Vomiting Oxybutynin Chloride 5 mg 09/20/21 10:00 09/21/21 22:52 Oxybutynin 5 Mg Tab PO Not Given BID [facility] Oxycodone/Acetaminophen 1 tab 09/20/21 09:00 Oxycodone /Acetaminophen 5-325mg Tab PO Q6H PRN Pain, Moderate (4-6) Pantoprazole Sodium 40 mg 09/20/21 10:00 09/21/21 09:03 Pantoprazole 40 Mg Tab PO Not Given DAILY [facility] Senna/Docusate Sodium 2 tab 09/20/21 13:09 Sennosides/Docusate Sodium 8.6/50 Mg Tab PO Q12H PRN Laxative Effect Sodium Chloride 10 ml 09/20/21 10:00 09/21/21 22:57 Sodium Chloride 0.9% 10 Ml Flush Syringe IV 10 ml BID [facility] Administration Sodium Chloride 10 ml 09/20/21 08:00 Sodium Chloride 0.9% 10 Ml Flush Syringe IV PRN PRN LINE FLUSH Trazodone HCl 50 mg 09/20/21 22:00 09/21/21 22:52 Trazodone 50 Mg Tab PO Not Given QHS [facility]
--- NOTE | 2021-09-22 10:28 | Event Note ---
Date: 09/22/21
[2021-09-22] MEDS ORDERED: DEXTROSE 50% IN WATER (25GM) 50 ML SYRINGE IV PRN (14:00)
--- NOTE | 2021-09-22 16:02 | Progress Note ---
Assessment and Plan Patient is 61-year-old female with a past medical history of hypertension, diabetes, CVA, abdominal cancer s/p chemotherapy, hysterectomy who was admitted to the hospital on 09/20/2021 for altered mental status AMS [facility]-nephrology following Pauses on monitor Hypercalcemic Hyponatremic Leukocytosis Hypertension Diabetes History of CVA Metastatic moqnhl-[id number]-[id number] following Echo 09/21/2021-EF 55 to 60%. Mild diastolic dysfunction is present impaired fixation pattern. Right ventricle systolic function is mildly reduced. Right ventricle is normal in size. No pericardial effusion Plan: Telemetry reviewed. Patient has had no further episodes of pauses on monitor Hold any AV blaine agents Echo results noted above Due to patient's extensive metastatic cancer patient likely not a candidate for device and no further cardiac intervention indicated May wish to consider hospice/palliative care Will see as needed Patient in conjunction with Dr. Aquino who agrees with this plan of care - Patient Problems (1) Sinus pause Current Visit: Yes Status: Acute (2) Hypercalcemia Current Visit: Yes Status: Acute (3) Acute metabolic encephalopathy Current Visit: No Status: Acute (4) CVA (cerebral vascular accident) Current Visit: No Status: Acute (5) Debility Current Visit: No Status: Acute (6) Hypertension Current Visit: No Status: Acute (7) Hypokalemia Current Visit: No Status: Acute (8) Metastatic cancer Current Visit: Yes Status: Acute Subjective Date of service: 09/22/21 Principal diagnosis: AMS, metastatic cancer, UTI, Sepsis Interval history: Patient transferred to [facility]. Patient remains altered mental status and nonverbal Patient sinus tach on monitor 100s to 110s with no episodes of pauses. Per report from RN and documentation patient did vagal down to a rate of 34 when attempting to put in NG tube however once to be removed patient heart rate went back to sinus tach Objective Vital Signs Temp Pulse Pulse Resp BP Pulse Ox 09/22/21 13:28 103 H 189/97 09/22/21 08:21 92 09/22/21 08:00 109 H 21 182/86 96 09/22/21 07:30 107 H 24 171/78 97 09/22/21 07:00 114 H 23 173/80 98 09/22/21 06:30 114 H 22 165/81 97 09/22/21 06:00 113 H 21 184/80 99 09/22/21 05:30 104 H 21 179/73 96 09/22/21 05:00 116 H 26 H 160/134 97 09/22/21 04:30 114 H 11 L 157/77 98 09/22/21 04:00 114 H 24 159/80 98 09/22/21 03:45 97.5 F L 09/22/21 03:30 113 H 17 178/83 99 09/22/21 03:00 110 H 14 176/91 98 09/22/21 02:30 109 H 19 171/89 97 09/22/21 02:00 105 H 16 171/86 97 09/22/21 01:30 99 H 27 H 180/86 97 09/22/21 01:01 107 H 16 175/88 98 09/22/21 00:30 104 H 19 177/77 98 09/22/21 00:01 109 H 14 167/86 98 09/21/21 23:34 98.9 F 09/21/21 23:31 108 H 20 157/85 98 09/21/21 23:01 115 H 20 140/83 98 09/21/21 22:39 113 H 21 157/50 98 09/21/21 22:31 105 H 21 157/50 98 09/21/21 22:00 106 H 111 H 20 161/76 97 09/21/21 21:30 110 H 22 166/79 97 09/21/21 21:00 106 H 21 146/73 98 09/21/21 20:51 98 09/21/21 20:33 131/59 09/21/21 20:31 105 H 19 131/59 97 09/21/21 20:00 111 H 25 H 165/66 98 09/21/21 19:56 98.2 F 09/21/21 19:30 113 H 17 178/79 99 09/21/21 19:11 115 H 22 98 09/21/21 19:00 115 H 16 - Physical Examination General: No Apparent Distress HEENT: Positive: Normocephaly, Mucus Membranes Dry Neck: Positive: trachea midline Cardiac: Positive: Regular Rhythm, Tachycardia Lungs: Positive: Decreased Breath Sounds Neuro: Positive: Other (Unable to assess due to patient mental status) Abdomen: Positive: Soft, Active Bowel Sounds Skin: Negative: Rash, Suspicious Lesions, Ulceration Extremities: Present: upper extr. pulses. Absent: edema - Labs and Meds CBC 09/22/21 Range/Units 05:23 WBC 16.7 H (4.5-11.0) K/mm3 RBC 4.94 (3.65-5.03) M/mm3 Hgb 12.6 (10.1-14.3) gm/dl Hct 40.3 (30.3-42.9) % Plt Count 293 (140-440) K/mm3 Comprehensive Metabolic Panel 09/21/21 09/22/21 Range/Units 22:43 05:23 Sodium 151 H (137-145) mmol/L Potassium 3.4 L (3.6-5.0) mmol/L Chloride 118.2 H (98-107) mmol/L Carbon Dioxide 24 (22-30) mmol/L BUN 72 H (7-17) mg/dL Creatinine 1.4 H (0.6-1.2) mg/dL Glucose 100 (65-100) mg/dL Calcium > 13.0 H* > 13.0 H* (8.4-10.2) mg/dL - Imaging and Cardiology Echo: report reviewed - Telemetry EKG Rhythm: Sinus Bradycardia - EKG Sinus rhythms and dysrhythmias: sinus tachycardia Myocardial infarction: anterior MT (old age or i
--- NOTE | 2021-09-22 17:07 | Hem/Onc Progress Note ---
Subjective Date of service: 09/22/21 Interval history: Heme Data Review CPT 75927 Dx Abdominal Cancer This is 61yo female with history of abdominal ca with mets to liver s/p chemotherapy within the last year, HTN, diabetes, CVA, hysterectomy Presents to the ER with confusion; With a recent hospital admission for con fusion As per chart review, patient continues to be confused and history was obtained by Planning for hospice as per chart review Abd/pel CT (09/20/21) c/w extensive diffuse metastatic disease involving the liver. Evidence of peritoneal carcinomatosis best seen in the midabdomen below the transverse colon anteriorly. Possible additional disease adjacent to the spleen. Possible fecal impaction and mild associated stercoral colitis in the rectum. Cholelithiasis. As per chart review, patient continues to be altered mental status and nonverbal. DATA REVIEWED BELOW IMP: Extensive abdominal cancer, with mets to the liver Hypercalcemia, related to malignancy on Calcitonin 400units q12h s/p Pamidronate 90mg Borderline microcytosis, related to iron deficiency with 12% iron saturation PLAN: Monitor calcium trend, s/p Pamidronate 09/21/21 Ferrlicet 125mg IV daily x 3 days Patient may not be a candidate at this time for antitumor therapy due to current condition End of life discussion may be appropriate Laboratory Last Values WBC 16.7 K/mm3 (4.5-11.0) H 09/22/21 05:23 Hgb 12.6 gm/dl (10.1-14.3) 09/22/21 05:23 Hct 40.3 % (30.3-42.9) 09/22/21 05:23 MCV 82 fl (79-97) 09/22/21 05:23 Plt Count 293 K/mm3 (140-440) 09/22/21 05:23 Lymph % (Auto) 6.4 % (13.4-35.0) L 09/21/21 07:27 [place] % (Auto) 10.3 % (0.0-7.3) H 09/21/21 07:27 Eos % (Auto) 0.1 % (0.0-4.3) 09/21/21 07:27 Baso % (Auto) 0.3 % (0.0-1.8) 09/21/21 07:27 Lymph # (Auto) 1.1 K/mm3 (1.2-5.4) L 09/21/21 07:27 [place] # (Auto) 1.7 K/mm3 (0.0-0.8) H 09/21/21 07:27 Eos # (Auto) 0.0 K/mm3 (0.0-0.4) 09/21/21 07:27 Baso # (Auto) 0.1 K/mm3 (0.0-0.1) 09/21/21 07:27 Seg Neutrophils % 82.9 % (40.0-70.0) H 09/21/21 07:27 Seg Neutrophils # 13.8 K/mm3 (1.8-7.7) H 09/21/21 07:27 APTT 27.3 Sec. (24.2-36.6) 09/20/21 01:44 Creatinine 1.4 mg/dL (0.6-1.2) H 09/22/21 05:23 Lactic Acid 1.70 mmol/L (0.7-2.0) 09/20/21 01:44 Calcium > 13.0 mg/dL (8.4-10.2) H* 09/22/21 05:23 Ionized Calcium 8.4 mg/dL (4.8-5.6) H* 09/20/21 10:13 Phosphorus 3.90 mg/dL (2.5-4.5) 09/20/21 10:05 Iron 19 ug/dL (37-170) L 09/21/21 07:27 TIBC 148 mcg/dL (250-450) L 09/21/21 07:27 Total Bilirubin 0.50 mg/dL (0.1-1.2) 09/21/21 07:27 AST 84 units/L (5-40) H 09/21/21 07:27 ALT 20 units/L (7-56) 09/21/21 07:27 Alkaline Phosphatase 153 units/L (35-129) H 09/21/21 07:27 Ammonia 28.0 umol/L (25-60) 09/21/21 07:27 Troponin T < 0.010 ng/mL (0.00-0.029) 09/20/21 01:44 Total Protein 7.3 g/dL (6.3-8.2) 09/21/21 07:27 Albumin 2.4 g/dL (3.9-5) L 09/21/21 07:27 Albumin/Globulin Ratio 0.5 % 09/21/21 07:27 TSH 1.400 mlU/mL (0.270-4.200) 09/20/21 07:46 Free T4 1.33 ng/dL (0.76-1.46) 09/20/21 07:46 PTH Intact 310.7 pg/mL (15-65) H 09/20/21 07:46 Objective - Constitutional Vitals: Last Vital Signs Temp 97.5 F L 09/22/21 03:45 Pulse 103 H 09/22/21 13:28 Resp 21 09/22/21 08:00 BP 189/97 09/22/21 13:28 Pulse Ox 92 09/22/21 08:21 - Labs Lab Results: Laboratory Results - last 24 hr 09/20/21 09/21/21 09/22/21 10:13 22:43 05:23 WBC RBC Hgb Hct MCV MCH MCHC RDW Plt Count Sodium 151 H Potassium 3.4 L Chloride 118.2 H Carbon Dioxide 24 Anion Gap 12 BUN 72 H Creatinine 1.4 H Estimated GFR 46 BUN/Creatinine Ratio 51 Glucose 100 Calcium > 13.0 H* > 13.0 H* Ionized Calcium 8.4 H* 09/22/21 05:23 WBC 16.7 H RBC 4.94 Hgb 12.6 Hct 40.3 MCV 82 MCH 26 L MCHC 31 RDW 15.0 Plt Count 293 Sodium Potassium Chloride Carbon Dioxide Anion Gap BUN Creatinine Estimated GFR BUN/Creatinine Ratio Glucose Calcium Ionized Calcium Medications & Allergies - Medications Allergies/Adverse Reactions: Allergies diphenhydramine [From Benadryl] Allergy (Verified 09/14/21 13:58) Rash/Hives and Sores on Face Home Medications: Home Medications Medication Instructions Recorded Confirmed Last Taken Type AtorvaSTATin [Lipitor] 20 mg PO QHS 09/12/21 09/20/21 Unknown History Fluticasone [Flonase] 1 spray BN DAILY 09/12/21 09/20/21 Unknown History Gabapentin 300 mg PO BID 09/12/21 09/20/21 Unknown History Insulin Aspart [Insulin Aspart 18 unit SQ TID 09/12/21 09/20/21 Unknown History Flexpen] Insulin Glargine,Hum.rec.anlog 45 unit SQ QHS 09/12/21 09/20/21 Unknown History [Lantus Solostar] Levothyroxine [Synthroid] 25 mcg PO QAM 09/12/21 09/20/21 Unknown History Losartan [Cozaar] 100 mg PO QDAY 09/12/21 09/20/21 Unknown History Omeprazole 40 mg PO DAILY 09/12/21 09/20/21 Unknown History Oxybutynin [Ditropan] 5 mg PO BID 09/12/21 09/20/21 Unknown History Saxagliptin HCl [Onglyza] 5 mg PO DAILY 09/12/21 09/20/21 Unknown History allopurinoL [Zyloprim] 100 mg PO QDAY 09/12/21 09/20/21 Unknown History hydrOXYzine PAMOATE [Vistaril] 25 mg PO HS PRN 09/12/21 09/20/21 Unknown History traZODone [Desyrel] 50 mg PO QHS 09/12/21 09/20/21 Unknown History Albuterol Mdi (or & Nicu Only) 1 puff IH Q6H PRN 09/14/21 09/20/21 Unknown History [ProAir HFA Inhaler] Buprenorphine [Butrans] 1 each TD QWEEK 09/14/21 09/20/21 Unknown History Dapagliflozin Propanediol [Farxiga] 5 mg PO QDAY 09/14/21 09/20/21 Unknown History Oxycodone HCl/Acetaminophen 1 each PO Q8H PRN 09/14/21 09/20/21 Unknown History [Percocet 10/325 mg] Aspirin [Aspirin BABY CHEW TAB] 81 mg PO QDAY #30 tab.chew 09/18/21 09/20/21 Unknown Rx Famotidine [Pepcid] 20 mg PO BID #30 tablet 09/18/21 09/20/21 Unknown Rx Hydralazine HCl 50 mg PO Q8H #90 09/18/21 09/20/21 Unknown Rx NIFEdipine XL [Procardia Xl] 30 mg PO Q12HR #60 tablet 09/18/21 09/20/21 Unknown Rx predniSONE [Deltasone] 20 mg PO QDAY #14 tablet 09/18/21 09/20/21 Unknown Rx Active Medications: Generic Name Dose Route Start Last Admin Trade Name Freq PRN Reason Stop Dose Admin Acetaminophen 650 mg 09/20/21 08:00 Acetaminophen 325 Mg Tab PO Q4H PRN Pain MILD(1-3)/Fever >100.5/AMES Albuterol 2.5 mg 09/20/21 08:00 Albuterol 2.5 Mg/3 Ml Nebu IH Q4HRT PRN Shortness Of Breath Allopurinol 100 mg 09/20/21 10:00 09/21/21 09:03 Allopurinol 100 Mg Tab PO Not Given QDAY [facility] Aspirin 81 mg 09/20/21 10:00 09/21/21 09:01 Aspirin 81 Mg Tab Chew PO Not Given QDAY [facility] Atorvastatin Calcium 20 mg 09/20/21 22:00 09/21/21 22:53 Atorvastatin 20 Mg Tab PO Not Given QHS [facility] Calcitonin [place] 400 unit 09/20/21 12:00 09/22/21 00:34 Calcitonin,[place],Synthetic 400 Unit/2 Ml Inj Mdv IM 400 unit Q12HR [facility] Administration Cinacalcet 30 mg 09/20/21 11:00 09/21/21 09:03 Cinacalcet 30 Mg Tab PO Not Given QDAY [facility] Dextrose 50 ml 09/22/21 14:00 Dextrose 50% In Water (25gm) 50 Ml Syringe IV Q30MIN PRN Hypoglycemia Protocol Fluticasone Propionate 50 mcg 09/20/21 10:00 09/21/21 14:38 Fluticasone Propionate Nasal [place] 16 Gm NS Not Given DAILY [facility] Gabapentin 300 mg 09/20/21 10:00 09/21/21 22:52 Gabapentin 300 Mg Cap PO Not Given BID [facility] Hydralazine HCl 10 mg 09/20/21 08:00 09/21/21 06:20 Hydralazine 20 Mg/1 Ml Inj IV 10 mg Q4H PRN Administration Hypertension Hydralazine HCl 20 mg 09/21/21 12:00 09/22/21 13:28 Hydralazine 20 Mg/1 Ml Inj IV 20 mg Q8H [facility] Administration Hydroxyzine Pamoate 25 mg 09/20/21 22:00 Hydroxyzine [place] 25 Mg Cap PO HS PRN Anxiety Cefepime HCl 2 gm in 100 mls @ 200 mls/hr 09/20/21 18:00 09/22/21 05:32 Cefepime/Ns 2 Gm/100 Ml IV 200 mls/hr Q12H [facility] Administration Protocol Dextrose/Sodium Chloride 1,000 mls @ 75 mls/hr 09/22/21 06:00 09/22/21 05:26 D5/0.45ns IV 75 mls/hr DIRECT [facility] Administration Insulin Glargine 25 units 09/21/21 16:07 09/21/21 23:40 Insulin Glargine 100 Units/Ml SUB-Q 25 units QHS [facility] Administration Insulin Human Lispro 0 unit 09/22/21 00:00 09/22/21 05:29 Insulin Lispro 100 Unit/Ml SUB-Q Not Given Q6HR [facility] Protocol Levothyroxine Sodium 25 mcg 09/20/21 10:00 09/22/21 05:30 Levothyroxine 25 Mcg Tab PO Not Given QAM@0600 [facility] Linagliptin 5 mg 09/20/21 11:00 09/21/21 09:00 Linagliptin 5 Mg Tab PO Not Given QDDIAB [facility] Losartan Potassium 100 mg 09/20/21 10:00 09/21/21 09:01 Losartan 50 Mg Tab PO Not Given QDAY [facility] Naloxone HCl 0.1 mg 09/20/21 08:00 Naloxone 0.4 Mg/1 Ml Inj IV Q2MIN PRN Res Rate </= 8 or 02 SAT < 92% Nifedipine 30 mg 09/20/21 10:00 09/21/21 22:53 Nifedipine Xl 30 Mg Tab PO Not Given Q12HR [facility] Ondansetron HCl 4 mg 09/20/21 08:00 Ondansetron 4 Mg/2 Ml Inj IV Q8H PRN Nausea And Vomiting Oxybutynin Chloride 5 mg 09/20/21 10:00 09/21/21 22:52 Oxybutynin 5 Mg Tab PO Not Given BID [facility] Oxycodone/Acetaminophen 1 tab 09/20/21 09:00 Oxycodone /Acetaminophen 5-325mg Tab PO Q6H PRN Pain, Moderate (4-6) Pantoprazole Sodium 40 mg 09/20/21 10:00 09/21/21 09:03 Pantoprazole 40 Mg Tab PO Not Given DAILY [facility] Senna/Docusate Sodium 2 tab 09/20/21 13:09 Sennosides/Docusate Sodium 8.6/50 Mg Tab PO Q12H PRN Laxative Effect Sodium Chloride 10 ml 09/20/21 10:00 09/21/21 22:57 Sodium Chloride 0.9% 10 Ml Flush Syringe IV 10 ml BID [facility] Administration Sodium Chloride 10 ml 09/20/21 08:00 Sodium Chloride 0.9% 10 Ml Flush Syringe IV PRN PRN LINE FLUSH Trazodone HCl 50 mg 09/20/21 22:00 09/21/21 22:52 Trazodone 50 Mg Tab PO Not Given QHS [facility]
--- NOTE | 2021-09-22 17:17 | Progress Note ---
Assessment and Plan Assessment and plan: Patient is a 61 year old female with a history of high blood pressure, diabetes, CVA, Abdominal CA s/p Chemotherapy, Hysterectomy, Recently discharged from the hospital following admission for confusion and failure to thrive returns today with complaints of confusion per family. Information was obtained from ED documentation and family due to patients altered mental status. Family reports that her condition had not changed since discharge from the hospital. She did not fill her prescriptions. She during my examination only complains of back pain but could not specify where he was. She was not oriented to person place or time. I did discuss with the who informed me of her history of a bdominal cancer although documented also stated that the patient finished chemotherapy within the last year. But could not give me much further information about this. I did notice that the plan for discharge with hospice when asked if this was secondary to concern about end-of-life he said neurol ogist for additional resources. He did not report that she had any bladder/bowel retention incontinence and saddle anesthesia. She lives at home with family. Review of last admission records shows no pathology on imaging studies. CT head and chest x-ray also reviewed negative for acute pathology #Acute metabolic encephalopathy -CT head unremarkable for acute abnormality -Likely secondary to hypercalcemia -We will continue to monitor, if no improvement will consult neurology #Severe hypercalcemia -Calcium greater than 13 -Continue IV fluids, calcitonin and cinacalcet -Nephrology following, assistance appreciated -Continue telemetry #Sinus arrest- prolonged sinus pause #Pauses on telemetry monitoring -Ave blocking agents held -External pacer ordered 40-45bpm for these episodes -Cardiology consulted, assistance appreciated #Acute kidney injury with vasomotor nephropathy -Creatinine last admission 0.9, currently 1.4 -Likely secondary to volume depletion from hypercalcemia -Continue IV fluids -Nephrology following, assistance appreciated #Generalized weakness likely secondary to hypercalcemia #Hyperparathyroidism -Parathyroid scan was negative for adenoma #Leukocytosis -elevated WBC count with neutrophillic predominance -given hypercalcemia, SPEP ordered to rule out MM -with elevated Gamma gap #Hypothyroidism -continue synthroid #Hypernatremia -continue 1/2NS #Diabetes mellitus, insulin dependent -lantus decreased to 25U qhs given now NPO status due to mental state -continue accuchecks -hypoglycemia precautions #Hypertension -continue hydralazine IV and PRN #History of CVA in the past #Severe protein calorie malnutrition -albumin 2.4 -nutrition consult #Failure to thrive -likely sequelae of cancer, volume depletion and hypercalcemia #History of abdominal cancer status post chemotherapy -CT abdomen/pelvis shows peritoneal carcinomatous and hepatic mets -Hematology/Oncology following, assistance appreciated #Advanced care planning -Disease education, care plan, diagnosis, prognosis discussed with next of kin ( Steven Bland) via phone. We discussed goals of care and patient's current clinical status. She was treated for her cancer at [facility] and he was not aware of the type of cancer or prognosis. At this time he would like to continue full CODE STATUS and plans to visit the patient sometime today. Family understands and acknowledges current plan. -Time: +30 minutes 09/22: Patient seen and examined very lethargic, I spoke to the son Ori and explained the entire clinical status, which is a grave prognosis. I discussed with cardiology they do not think that the patient is a candidate for pacemaker placement. Family is also updated on this. I did discuss with the patient. She is drowsy she verbalized multiple times that she does not want a breathing tube in the event that her heart was to stop. Hypercalcemia persist despite current medication. 35mins Advance care planning discussed in detail. History Interval history: Patient seen and examined remains very lethargic, drowsy Hospitalist Physical - Physical exam Narrative exam: GENERAL: Well-developed well-nourished. None HEENT: Normocephalic. Atraumatic. NECK: Supple. CHEST/LUNGS: CTAB on room air HEART/CARDIOVASCULAR: RRR. No murmur, rubs or gallops appreciated. ABDOMEN: +BS. NT/ND. SKIN: No rashes noted. NEURO:Unable to assess. MUSCULOSKELETAL: No joint effusion EXTREMITIES: No cyanosis, clubbing or edema. PSYCH: Somnolent. - Constitutional Vitals: Temp Pulse Resp BP Pulse Ox 97.5 F L 103 H 21 189/97 92 09/22/21 03:45 09/22/21 13:28 09/22/21 08:00 09/22/21 13:28 09/22/21 08:21 General appearance: Present: other (AMS not following commands or answering questions) HEART Score - HEART Score Troponin: Troponin T < 0.010 ng/mL (0.00-0.029) 09/20/21 01:44 Results - Labs CBC & Chem 7: 09/22/21 05:23 09/22/21 05:23 Labs: Laboratory Last Values WBC 16.7 K/mm3 (4.5-11.0) H 09/22/21 05:23 RBC 4.94 M/mm3 (3.65-5.03) 09/22/21 05:23 Hgb 12.6 gm/dl (10.1-14.3) 09/22/21 05:23 Hct 40.3 % (30.3-42.9) 09/22/21 05:23 MCV 82 fl (79-97) 09/22/21 05:23 MCH 26 pg (28-32) L 09/22/21 05:23 MCHC 31 % (30-34) 09/22/21 05:23 RDW 15.0 % (13.2-15.2) 09/22/21 05:23 Plt Count 293 K/mm3 (140-440) 09/22/21 05:23 Lymph % (Auto) 6.4 % (13.4-35.0) L 09/21/21 07:27 Coffee % (Auto) 10.3 % (0.0-7.3) H 09/21/21 07:27 Eos % (Auto) 0.1 % (0.0-4.3) 09/21/21 07:27 Baso % (Auto) 0.3 % (0.0-1.8) 09/21/21 07:27 Lymph # (Auto) 1.1 K/mm3 (1.2-5.4) L 09/21/21 07:27 Coffee # (Auto) 1.7 K/mm3 (0.0-0.8) H 09/21/21 07:27 Eos # (Auto) 0.0 K/mm3 (0.0-0.4) 09/21/21 07:27 Baso # (Auto) 0.1 K/mm3 (0.0-0.1) 09/21/21 07:27 Seg Neutrophils % 82.9 % (40.0-70.0) H 09/21/21 07:27 Seg Neutrophils # 13.8 K/mm3 (1.8-7.7) H 09/21/21 07:27 APTT 27.3 Sec. (24.2-36.6) 09/20/21 01:44 Sodium 151 mmol/L (137-145) H 09/22/21 05:23 Potassium 3.4 mmol/L (3.6-5.0) L 09/22/21 05:23 Chloride 118.2 mmol/L (98-107) H 09/22/21 05:23 Carbon Dioxide 24 mmol/L (22-30) 09/22/21 05:23 Anion Gap 12 mmol/L 09/22/21 05:23 BUN 72 mg/dL (7-17) H 09/22/21 05:23 Creatinine 1.4 mg/dL (0.6-1.2) H 09/22/21 05:23 Estimated GFR 46 ml/min 09/22/21 05:23 BUN/Creatinine Ratio 51 % 09/22/21 05:23 Glucose 100 mg/dL (65-100) 09/22/21 05:23 POC Glucose 175 mg/dL (70-105) H 09/20/21 16:04 Lactic Acid 1.70 mmol/L (0.7-2.0) 09/20/21 01:44 Calcium > 13.0 mg/dL (8.4-10.2) H* 09/22/21 05:23 Ionized Calcium 8.4 mg/dL (4.8-5.6) H* 09/20/21 10:13 Phosphorus 3.90 mg/dL (2.5-4.5) 09/20/21 10:05 Iron 19 ug/dL (37-170) L 09/21/21 07:27 TIBC 148 mcg/dL (250-450) L 09/21/21 07:27 Total Bilirubin 0.50 mg/dL (0.1-1.2) 09/21/21 07:27 AST 84 units/L (5-40) H 09/21/21 07:27 ALT 20 units/L (7-56) 09/21/21 07:27 Alkaline Phosphatase 153 units/L (35-129) H 09/21/21 07:27 Ammonia 28.0 umol/L (25-60) 09/21/21 07:27 Troponin T < 0.010 ng/mL (0.00-0.029) 09/20/21 01:44 Total Protein 7.3 g/dL (6.3-8.2) 09/21/21 07:27 Albumin 2.4 g/dL (3.9-5) L 09/21/21 07:27 Albumin/Globulin Ratio 0.5 % 09/21/21 07:27 TSH 1.400 mlU/mL (0.270-4.200) 09/20/21 07:46 Free T4 1.33 ng/dL (0.76-1.46) 09/20/21 07:46 PTH Intact 310.7 pg/mL (15-65) H 09/20/21 07:46 Urine Color Yellow (Yellow) 09/20/21 04:47 Urine Turbidity Cloudy (Clear) 09/20/21 04:47 Urine pH 6.0 (5.0-7.0) 09/20/21 04:47 Ur Specific [place] 1.011 (1.003-1.030) 09/20/21 04:47 Urine Protein >500 mg/dL (Negative) 09/20/21 04:47 Urine Glucose (UA) 150 mg/dL (Negative) 09/20/21 04:47 Urine Ketones Neg mg/dL (Negative) 09/20/21 04:47 Urine Blood Sm (Negative) 09/20/21 04:47 Urine Nitrite Neg (Negative) 09/20/21 04:47 Urine Bilirubin Neg (Negative) 09/20/21 04:47 Urine Urobilinogen < 2.0 mg/dL (<2.0) 09/20/21 04:47 Ur Leukocyte Esterase Lg (Negative) 09/20/21 04:47 Urine WBC (Auto) 182.0 /HPF (0.0-6.0) H 09/20/21 04:47 Urine RBC (Auto) 13.0 /HPF (0.0-6.0) 09/20/21 04:47 U Epithel Cells (Auto) 2.0 /HPF (0-13.0) 09/20/21 04:47 Urine Bacteria (Auto) 4+ /HPF (Negative) 09/20/21 04:47 Urine WBC Clumps 3+ /HPF 09/20/21 04:47 Hyaline Casts 4 /LPF 09/20/21 04:47 Urine Mucus Few /HPF 09/20/21 04:47 Urine Yeast (Budding) 3+ /HPF 09/20/21 04:47 Urine Creatinine 61.8 mg/dL (0.1-20.0) H 09/21/21 05:35 Protein/Creatinin Ratio 9.32 09/21/21 05:35 Urine Sodium 21 mmol/L 09/21/21 05:35 Urine Total Protein 576 mg/dL (5-11.8) H 09/21/21 05:35 Salicylates < 0.3 mg/dL (2.8-20.0) L 09/20/21 01:44 Urine Opiates Screen Negative 09/20/21 04:47 Urine Methadone Screen Negative 09/20/21 04:47 Acetaminophen 5.0 ug/mL (10.0-30.0) L 09/20/21 01:44 Ur Barbiturates Screen Negative 09/20/21 04:47 Ur Phencyclidine Scrn Negative 09/20/21 04:47 Ur Amphetamines Screen Negative 09/20/21 04:47 U Benzodiazepines Scrn Negative 09/20/21 04:47 Urine Cocaine Screen Negative 09/20/21 04:47 U Marijuana (THC) Screen Negative 09/20/21 04:47 Drugs of Abuse Note Disclamer 09/20/21 04:47 Blood Type B POSITIVE 09/20/21 08:00 Antibody Screen Negative 09/20/21 08:00 Microbiology: Microbiology 09/20/21 09:15 Urine,Clean Catch Urine Culture - Final Escherichia Coli 09/20/21 07:46 Peripheral/Venous Blood Culture - Preliminary NO GROWTH AFTER 48 HOURS 09/20/21 07:46 Peripheral/Venous Blood Culture - Preliminary NO GROWTH AFTER 48 HOURS Vega/IV: Voiding Method Indwelling Catheter Active Medications - Current Medications Current Medications: Generic Name Dose Route Start Last Admin Trade Name Freq PRN Reason Stop Dose Admin Acetaminophen 650 mg 09/20/21 08:00 Acetaminophen 325 Mg Tab PO Q4H PRN Pain MILD(1-3)/Fever >100.5/AMES Albuterol 2.5 mg 09/20/21 08:00 Albuterol 2.5 Mg/3 Ml Nebu IH Q4HRT PRN Shortness Of Breath Allopurinol 100 mg 09/20/21 10:00 09/21/21 09:03 Allopurinol 100 Mg Tab PO Not Given QDAY CARMEN Aspirin 81 mg 09/20/21 10:00 09/21/21 09:01 Aspirin 81 Mg Tab Chew PO Not Given QDAY [facility] Atorvastatin Calcium 20 mg 09/20/21 22:00 09/21/21 22:53 Atorvastatin 20 Mg Tab PO Not Given QHS [facility] Calcitonin [place] 400 unit 09/20/21 12:00 09/22/21 00:34 Calcitonin,[place],Synthetic 400 Unit/2 Ml Inj Mdv IM 400 unit Q12HR CARMEN Administration Cinacalcet 30 mg 09/20/21 11:00 09/21/21 09:03 Cinacalcet 30 Mg Tab PO Not Given QDAY [facility] Dextrose 50 ml 09/22/21 14:00 Dextrose 50% In Water (25gm) 50 Ml Syringe IV Q30MIN PRN Hypoglycemia Protocol Fluticasone Propionate 50 mcg 09/20/21 10:00 09/21/21 14:38 Fluticasone Propionate Nasal [place] 16 Gm NS Not Given DAILY [facility] Gabapentin 300 mg 09/20/21 10:00 09/21/21 22:52 Gabapentin 300 Mg Cap PO Not Given BID [facility] Hydralazine HCl 10 mg 09/20/21 08:00 09/21/21 06:20 Hydralazine 20 Mg/1 Ml Inj IV 10 mg Q4H PRN Administration Hypertension Hydralazine HCl 20 mg 09/21/21 12:00 09/22/21 13:28 Hydralazine 20 Mg/1 Ml Inj IV 20 mg Q8H CAR[facility] Administration Hydroxyzine Pamoate 25 mg 09/20/21 22:00 Hydroxyzine [place] 25 Mg Cap PO HS PRN Anxiety Cefepime HCl 2 gm in 100 mls @ 200 mls/hr 09/20/21 18:00 09/22/21 05:32 Cefepime/Ns 2 Gm/100 Ml IV 200 mls/hr Q12H CARMEN Administration Protocol Dextrose/Sodium Chloride 1,000 mls @ 75 mls/hr 09/22/21 06:00 09/22/21 05:26 D5/0.45ns IV 75 mls/hr DIRECT CARMEN Administration Ferric Sodium Gluconate 110 mls @ 100 mls/hr 09/22/21 18:00 Complex 125 mg/ Sodium IV 09/24/21 17:59 Chloride DAILY [facility] Insulin Glargine 25 units 09/21/21 16:07 09/21/21 23:40 Insulin Glargine 100 Units/Ml SUB-Q 25 units QHS [facility] Administration Insulin Human Lispro 0 unit 09/22/21 00:00 09/22/21 05:29 Insulin Lispro 100 Unit/Ml SUB-Q Not Given Q6HR [facility] Protocol Levothyroxine Sodium 25 mcg 09/20/21 10:00 09/22/21 05:30 Levothyroxine 25 Mcg Tab PO Not Given QAM@0600 [facility] Linagliptin 5 mg 09/20/21 11:00 09/21/21 09:00 Linagliptin 5 Mg Tab PO Not Given QDDIAB [facility] Losartan Potassium 100 mg 09/20/21 10:00 09/21/21 09:01 Losartan 50 Mg Tab PO Not Given QDAY [facility] Naloxone HCl 0.1 mg 09/20/21 08:00 Naloxone 0.4 Mg/1 Ml Inj IV Q2MIN PRN Res Rate </= 8 or 02 SAT < 92% Nifedipine 30 mg 09/20/21 10:00 09/21/21 22:53 Nifedipine Xl 30 Mg Tab PO Not Given Q12HR [facility] Ondansetron HCl 4 mg 09/20/21 08:00 Ondansetron 4 Mg/2 Ml Inj IV Q8H PRN Nausea And Vomiting Oxybutynin Chloride 5 mg 09/20/21 10:00 09/21/21 22:52 Oxybutynin 5 Mg Tab PO Not Given BID [facility] Oxycodone/Acetaminophen 1 tab 09/20/21 09:00 Oxycodone /Acetaminophen 5-325mg Tab PO Q6H PRN Pain, Moderate (4-6) Pantoprazole Sodium 40 mg 09/20/21 10:00 09/21/21 09:03 Pantoprazole 40 Mg Tab PO Not Given DAILY [facility] Senna/Docusate Sodium 2 tab 09/20/21 13:09 Sennosides/Docusate Sodium 8.6/50 Mg Tab PO Q12H PRN Laxative Effect Sodium Chloride 10 ml 09/20/21 10:00 09/21/21 22:57 Sodium Chloride 0.9% 10 Ml Flush Syringe IV 10 ml BID [facility] Administration Sodium Chloride 10 ml 09/20/21 08:00 Sodium Chloride 0.9% 10 Ml Flush Syringe IV PRN PRN LINE FLUSH Trazodone HCl 50 mg 09/20/21 22:00 09/21/21 22:52 Trazodone 50 Mg Tab PO Not Given QHS [facility]
[2021-09-22] MEDS: hydrALAZINE 20 MG/1 ML INJ IV PRN ×2 (17:53→23:31)
[2021-09-22] MEDS: SODIUM FERRIC GLUCON/SUCRO 125 MG in SODIUM CHLORIDE 0.9% 100 ML IV SCH (19:05)
[2021-09-22] MEDS ORDERED: GLYCOPYRROLATE 0.4 MG/2 ML INJ IV PRN (21:09)
[2021-09-22] MEDS ORDERED: diphenhydrAMINE 50 MG/ML VIAL IV PRN (21:09)
[2021-09-22] MEDS ORDERED: ACETAMINOPHEN 650 MG RECT SUPP PR PRN (21:09)
[2021-09-22] MEDS ORDERED: HYPROMELLOSE 0.5% OPHTH SOLN 15 ML OU PRN (21:09)
--- NOTE | 2021-09-22 21:13 | Event Note ---
Date: 09/22/21 Advance care planning conducted. Patient family reported to bedside. Patient prognosis discussed. Patient family elects to make patient DNR and initiate comfort care measures. Patient family request hospice care. Hospice care team notified. Discharge planning to home with hospice care as per family request. +30 minutes.
[2021-09-22] MEDS: OXYBUTYNIN 5 MG TAB PO SCH (21:29)
[2021-09-22] MEDS: GABAPENTIN 300 MG CAP PO SCH (21:29)
[2021-09-22] MEDS: NIFEdipine XL 30 MG TAB PO SCH (21:29)
[2021-09-22] MEDS: traZODone 50 MG TAB PO SCH (21:30)
[2021-09-22] MEDS: INSULIN GLARGINE 100 UNITS/ML SUB-Q SCH (21:31)
[2021-09-22] MEDS ORDERED: fentaNYL DRIP Premix 2,000 MCG/100 ML BAG IV SCH (22:00)
[2021-09-22] MEDS: POTASSIUM CHLORIDE 10 MEQ 10 MEQ/100 ML BAG IV SCH ×2 (22:01→23:25)
[2021-09-23] MEDS: INSULIN LISPRO 100 UNIT/ML SUB-Q SCH ×5 (01:54→17:28)
[2021-09-23] MEDS: hydrALAZINE 20 MG/1 ML INJ IV SCH ×3 (03:29→20:00)
[2021-09-23] MEDS: LEVOTHYROXINE 25 MCG TAB PO SCH (05:07)
[2021-09-23] MEDS: CEFEPIME/NS 2 GM/100 ML 2 GM/100 ML BAG IV SCH ×2 (05:07→17:21)
[2021-09-23 05:22] LABS: BUN/Creatinine Ratio 45; Blood Urea Nitrogen 68 mg/dL (7-17); Hemolysis Index 21
[2021-09-23 05:58] LABS: Calcium > 13.0 mg/dL (8.4-10.2)
[2021-09-23] MEDS: LINAGLIPTIN 5 MG TAB PO SCH ×2 (06:15→08:14)
[2021-09-23] MEDS: ASPIRIN 81 MG TAB CHEW PO SCH ×2 (06:15→10:26)
[2021-09-23] MEDS: FLUTICASONE PROPIONATE NASAL SPRAY 16 GM NS SCH ×2 (06:16→10:45)
[2021-09-23] MEDS: CALCITONIN,SALMON,SYNTHETIC 400 UNIT/2 ML INJ MDV IM SCH ×3 (06:16→21:24)
[2021-09-23] MEDS: CINACALCET 30 MG TAB PO SCH ×2 (06:16→10:27)
[2021-09-23] MEDS: OXYBUTYNIN 5 MG TAB PO SCH ×3 (06:16→21:24)
[2021-09-23] MEDS: NIFEdipine XL 30 MG TAB PO SCH ×3 (06:16→21:24)
[2021-09-23] MEDS: PANTOPRAZOLE 40 MG TAB PO SCH ×2 (06:16→10:27)
[2021-09-23] MEDS: GABAPENTIN 300 MG CAP PO SCH ×3 (06:16→21:24)
[2021-09-23] MEDS: allopurinoL 100 MG TAB PO SCH ×2 (06:17→10:27)
--- NOTE | 2021-09-23 09:04 | Progress Note ---
Assessment and Plan Assessment and plan: Patient is a 61 year old female with a history of high blood pressure, diabetes, CVA, Abdominal CA s/p Chemotherapy, Hysterectomy, Recently discharged from the hospital following admission for confusion and failure to thrive returns today with complaints of confusion per family. Information was obtained from ED documentation and family due to patients altered mental status. Family reports that her condition had not changed since discharge from the hospital. She did not fill her prescriptions. She during my examination only complains of back pain but could not specify where he was. She was not oriented to person place or time. I did discuss with the who informed me of her history of abdominal cancer although documented also stated that the patient finished chemotherapy within the last year. But could not give me much further information about this. I did notice that the plan for discharge with hospice when asked if this was secondary to concern about end-of-life he said neuro logist for additional resources. He did not report that she had any bladder/bowel retention incontinence and saddle anesthesia. She lives at home with family. Review of last admission records shows no pathology on imaging studies. CT head and chest x-ray also reviewed negative for acute pathology Hospital Course: 09/22: Patient seen and examined very lethargic, I spoke to the son Ori and explained the entire clinical status, which is a grave prognosis. I discussed w ith cardiology they do not think that the patient is a candidate for pacemaker placement. Family is also updated on this. I did discuss with the patient. She is drowsy she verbalized multiple times that she does not want a breathing tube in the event that her heart was to stop. Hypercalcemia persist despite current medication. 09/23: Patient is a DNR/DNI. Family is electing for comfort measures. Dr. Kelley has kindly helped coordinate HEAD RESIDENT pump for patient to go home with. Will work with for home hospice arrangements. Assessment and Plan: #Acute metabolic encephalopathy -CT head unremarkable for acute abnormality -Likely secondary to hypercalcemia -We will continue to monitor, if no improvement will consult neurology #Severe hypercalcemia -Calcium greater than 13 -Continue IV fluids, calcitonin and cinacalcet -Nephrology following, assistance appreciated -Continue telemetry #Sinus arrest- prolonged sinus pause #Pauses on telemetry monitoring -Ave blocking agents held -External pacer ordered 40-45bpm for these episodes -Cardiology consulted, assistance appreciated #Acute kidney injury with vasomotor nephropathy -Creatinine last admission 0.9, currently 1.4 -Likely secondary to volume depletion from hypercalcemia -Continue IV fluids -Nephrology following, assistance appreciated #Generalized weakness likely secondary to hypercalcemia #Hyperparathyroidism -Parathyroid scan was negative for adenoma #Leukocytosis -elevated WBC count with neutrophillic predominance -given hypercalcemia, SPEP ordered to rule out MM -with elevated Gamma gap #Hypothyroidism -continue synthroid #Hypernatremia -continue 1/2NS #Diabetes mellitus, insulin dependent -lantus decreased to 25U qhs given now NPO status due to mental state -continue accuchecks -hypoglycemia precautions #Hypertension -continue hydralazine IV and PRN #History of CVA in the past #Severe protein calorie malnutrition -albumin 2.4 -nutrition consult #Failure to thrive -likely sequelae of cancer, volume depletion and hypercalcemia #History of abdominal cancer status post chemotherapy -CT abdomen/pelvis shows peritoneal carcinomatous and hepatic mets -Hematology/Oncology following, assistance appreciated #Advanced care planning -Disease education, care plan, diagnosis, prognosis discussed with next of kin ( Steven Bland) via phone. We discussed goals of care and patient's current clinical status. She was treated for her cancer at [facility] and he was not aware of the type of cancer or prognosis. At this time he would like to continue full CODE STATUS and plans to visit the patient sometime today. Family understands and acknowledges current plan. -Time: +30 minutes History Interval history: Resting comfortably on encounter. Remains encephalopathic. opens eyes to verbal stimuli but not able to communicate meaningfully. Hospitalist Physical - Physical exam Narrative exam: GENERAL: Well-developed well-nourished. None HEENT: Normocephalic. Atraumatic. NECK: Supple. CHEST/LUNGS: CTAB on room air HEART/CARDIOVASCULAR: RRR. No murmur, rubs or gallops appreciated. ABDOMEN: +BS. NT/ND. SKIN: No rashes noted. NEURO:Unable to assess. MUSCULOSKELETAL: No joint effusion EXTREMITIES: No cyanosis, clubbing or edema. PSYCH: Somnolent. - Constitutional Vitals: Temp Pulse Resp BP Pulse Ox 97.6 F 122 H 22 174/90 92 09/23/21 07:57 09/23/21 08:00 09/23/21 08:00 09/23/21 08:00 09/23/21 08:13 General appearance: Present: other (AMS not following commands or answering questions) HEART Score - HEART Score Troponin: Troponin T < 0.010 ng/mL (0.00-0.029) 09/20/21 01:44 Results - Labs CBC & Chem 7: 09/22/21 05:23 09/23/21 04:32 Labs: Laboratory Last Values WBC 16.7 K/mm3 (4.5-11.0) H 09/22/21 05:23 RBC 4.94 M/mm3 (3.65-5.03) 09/22/21 05:23 Hgb 12.6 gm/dl (10.1-14.3) 09/22/21 05:23 Hct 40.3 % (30.3-42.9) 09/22/21 05:23 MCV 82 fl (79-97) 09/22/21 05:23 MCH 26 pg (28-32) L 09/22/21 05:23 MCHC 31 % (30-34) 09/22/21 05:23 RDW 15.0 % (13.2-15.2) 09/22/21 05:23 Plt Count 293 K/mm3 (140-440) 09/22/21 05:23 Lymph % (Auto) 6.4 % (13.4-35.0) L 09/21/21 07:27 [place] % (Auto) 10.3 % (0.0-7.3) H 09/21/21 07:27 Eos % (Auto) 0.1 % (0.0-4.3) 09/21/21 07:27 Baso % (Auto) 0.3 % (0.0-1.8) 09/21/21 07:27 Lymph # (Auto) 1.1 K/mm3 (1.2-5.4) L 09/21/21 07:27 [place] # (Auto) 1.7 K/mm3 (0.0-0.8) H 09/21/21 07:27 Eos # (Auto) 0.0 K/mm3 (0.0-0.4) 09/21/21 07:27 Baso # (Auto) 0.1 K/mm3 (0.0-0.1) 09/21/21 07:27 Seg Neutrophils % 82.9 % (40.0-70.0) H 09/21/21 07:27 Seg Neutrophils # 13.8 K/mm3 (1.8-7.7) H 09/21/21 07:27 APTT 27.3 Sec. (24.2-36.6) 09/20/21 01:44 Sodium 151 mmol/L (137-145) H 09/23/21 04:32 Potassium 3.9 mmol/L (3.6-5.0) 09/23/21 04:32 Chloride 119.9 mmol/L (98-107) H 09/23/21 04:32 Carbon Dioxide 23 mmol/L (22-30) 09/23/21 04:32 Anion Gap 12 mmol/L 09/23/21 04:32 BUN 68 mg/dL (7-17) H 09/23/21 04:32 Creatinine 1.5 mg/dL (0.6-1.2) H 09/23/21 04:32 Estimated GFR 43 ml/min 09/23/21 04:32 BUN/Creatinine Ratio 45 % 09/23/21 04:32 Glucose 112 mg/dL (65-100) H 09/23/21 04:32 POC Glucose 175 mg/dL (70-105) H 09/20/21 16:04 Lactic Acid 1.70 mmol/L (0.7-2.0) 09/20/21 01:44 Calcium > 13.0 mg/dL (8.4-10.2) H* 09/23/21 04:32 Ionized Calcium 8.4 mg/dL (4.8-5.6) H* 09/20/21 10:13 Phosphorus 3.90 mg/dL (2.5-4.5) 09/23/21 04:32 Iron 19 ug/dL (37-170) L 09/21/21 07:27 TIBC 148 mcg/dL (250-450) L 09/21/21 07:27 Total Bilirubin 0.50 mg/dL (0.1-1.2) 09/21/21 07:27 AST 84 units/L (5-40) H 09/21/21 07:27 ALT 20 units/L (7-56) 09/21/21 07:27 Alkaline Phosphatase 153 units/L (35-129) H 09/21/21 07:27 Ammonia 28.0 umol/L (25-60) 09/21/21 07:27 Troponin T < 0.010 ng/mL (0.00-0.029) 09/20/21 01:44 Total Protein 7.3 g/dL (6.3-8.2) 09/21/21 07:27 Albumin 2.4 g/dL (3.9-5) L 09/21/21 07:27 Albumin/Globulin Ratio 0.5 % 09/21/21 07:27 TSH 1.400 mlU/mL (0.270-4.200) 09/20/21 07:46 Free T4 1.33 ng/dL (0.76-1.46) 09/20/21 07:46 PTH Intact 310.7 pg/mL (15-65) H 09/20/21 07:46 Urine Color Yellow (Yellow) 09/20/21 04:47 Urine Turbidity Cloudy (Clear) 09/20/21 04:47 Urine pH 6.0 (5.0-7.0) 09/20/21 04:47 Ur Specific [place] 1.011 (1.003-1.030) 09/20/21 04:47 Urine Protein >500 mg/dL (Negative) 09/20/21 04:47 Urine Glucose (UA) 150 mg/dL (Negative) 09/20/21 04:47 Urine Ketones Neg mg/dL (Negative) 09/20/21 04:47 Urine Blood Sm (Negative) 09/20/21 04:47 Urine Nitrite Neg (Negative) 09/20/21 04:47 Urine Bilirubin Neg (Negative) 09/20/21 04:47 Urine Urobilinogen < 2.0 mg/dL (<2.0) 09/20/21 04:47 Ur Leukocyte Esterase Lg (Negative) 09/20/21 04:47 Urine WBC (Auto) 182.0 /HPF (0.0-6.0) H 09/20/21 04:47 Urine RBC (Auto) 13.0 /HPF (0.0-6.0) 09/20/21 04:47 U Epithel Cells (Auto) 2.0 /HPF (0-13.0) 09/20/21 04:47 Urine Bacteria (Auto) 4+ /HPF (Negative) 09/20/21 04:47 Urine WBC Clumps 3+ /HPF 09/20/21 04:47 Hyaline Casts 4 /LPF 09/20/21 04:47 Urine Mucus Few /HPF 09/20/21 04:47 Urine Yeast (Budding) 3+ /HPF 09/20/21 04:47 Urine Creatinine 61.8 mg/dL (0.1-20.0) H 09/21/21 05:35 Protein/Creatinin Ratio 9.32 09/21/21 05:35 Urine Sodium 21 mmol/L 09/21/21 05:35 Urine Total Protein 576 mg/dL (5-11.8) H 09/21/21 05:35 Salicylates < 0.3 mg/dL (2.8-20.0) L 09/20/21 01:44 Urine Opiates Screen Negative 09/20/21 04:47 Urine Methadone Screen Negative 09/20/21 04:47 Acetaminophen 5.0 ug/mL (10.0-30.0) L 09/20/21 01:44 Ur Barbiturates Screen Negative 09/20/21 04:47 Ur Phencyclidine Scrn Negative 09/20/21 04:47 Ur Amphetamines Screen Negative 09/20/21 04:47 U Benzodiazepines Scrn Negative 09/20/21 04:47 Urine Cocaine Screen Negative 09/20/21 04:47 U Marijuana (THC) Screen Negative 09/20/21 04:47 Drugs of Abuse Note Disclamer 09/20/21 04:47 Blood Type B POSITIVE 09/20/21 08:00 Antibody Screen Negative 09/20/21 08:00 Microbiology: Microbiology 09/20/21 07:46 Peripheral/Venous Blood Culture - Preliminary NO GROWTH AFTER 72 HOURS 09/20/21 07:46 Peripheral/Venous Blood Culture - Preliminary NO GROWTH AFTER 72 HOURS 09/20/21 09:15 Urine,Clean Catch Urine Culture - Final Escherichia Coli Vega/IV: Voiding Method Indwelling Catheter Active Medications - Current Medications Current Medications: Generic Name Dose Route Start Last Admin Trade Name Freq PRN Reason Stop Dose Admin Acetaminophen 650 mg 09/20/21 08:00 Acetaminophen 325 Mg Tab PO Q4H PRN Pain MILD(1-3)/Fever >100.5/AMES Acetaminophen 650 mg 09/22/21 21:09 Acetaminophen 650 Mg Rect Supp [place] Q4H PRN Fever >101 Albuterol 2.5 mg 09/20/21 08:00 Albuterol 2.5 Mg/3 Ml Nebu IH Q4HRT PRN Shortness Of Breath Allopurinol 100 mg 09/20/21 10:00 09/23/21 06:17 Allopurinol 100 Mg Tab PO Not Given QDAY [facility] Artificial Tears 2 drops 09/22/21 21:09 Hypromellose 0.5% Ophth Soln 15 Ml OU Q4H PRN Dry Eye(s) Aspirin 81 mg 09/20/21 10:00 09/23/21 06:15 Aspirin 81 Mg Tab Chew PO Not Given QDAY [facility] Atorvastatin Calcium 20 mg 09/20/21 22:00 09/22/21 21:31 Atorvastatin 20 Mg Tab PO Not Given QHS [facility] Calcitonin [place] 400 unit 09/20/21 12:00 09/23/21 06:16 Calcitonin,[place],Synthetic 400 Unit/2 Ml Inj Mdv IM Not Given Q12HR [facility] Cinacalcet 30 mg 09/20/21 11:00 09/23/21 06:16 Cinacalcet 30 Mg Tab PO Not Given QDAY [facility] Dextrose 50 ml 09/22/21 14:00 09/22/21 17:48 Dextrose 50% In Water (25gm) 50 Ml Syringe IV 15 ml Q30MIN PRN Administration Hypoglycemia Protocol Diphenhydramine HCl 25 mg 09/22/21 21:09 Diphenhydramine 50 Mg/Ml Vial IV Q4H PRN Itching Fluticasone Propionate 50 mcg 09/20/21 10:00 09/23/21 06:16 Fluticasone Propionate Nasal [place] 16 Gm NS Not Given DAILY [facility] Gabapentin 300 mg 09/20/21 10:00 09/23/21 06:16 Gabapentin 300 Mg Cap PO Not Given BID [facility] Glycopyrrolate 0.2 mg 09/22/21 21:09 Glycopyrrolate 0.4 Mg/2 Ml Inj IV Q4H PRN Secretions Hydralazine HCl 10 mg 09/20/21 08:00 09/22/21 23:31 Hydralazine 20 Mg/1 Ml Inj IV 10 mg Q4H PRN Administration Hypertension Hydralazine HCl 20 mg 09/21/21 12:00 09/23/21 03:29 Hydralazine 20 Mg/1 Ml Inj IV 20 mg Q8H [facility] Administration Hydroxyzine Pamoate 25 mg 09/20/21 22:00 Hydroxyzine Pamoate 25 Mg Cap PO HS PRN Anxiety Cefepime HCl 2 gm in 100 mls @ 200 mls/hr 09/20/21 18:00 09/23/21 05:07 Cefepime/Ns 2 Gm/100 Ml IV 200 mls/hr Q12H [facility] Administration Protocol Dextrose/Sodium Chloride 1,000 mls @ 75 mls/hr 09/22/21 06:00 09/22/21 21:25 D5/0.45ns IV 75 mls/hr DIRECT [facility] Administration Ferric Sodium Gluconate 110 mls @ 100 mls/hr 09/22/21 18:00 09/22/21 19:05 Complex 125 mg/ Sodium IV 09/24/21 17:59 100 mls/hr Chloride DAILY [facility] Administration Fentanyl Citrate 2,000 mcg in 100 mls @ 3.985 mls/hr 09/22/21 22:00 Fentanyl Drip Premix IV TITR [facility] Protocol 1 MCG/KG/HR Insulin Glargine 25 units 09/21/21 16:07 09/22/21 21:31 Insulin Glargine 100 Units/Ml SUB-Q Not Given QHS [facility] Insulin Human Lispro 0 unit 09/22/21 00:00 09/23/21 06:17 Insulin Lispro 100 Unit/Ml SUB-Q Not Given Q6HR [facility] Protocol Levothyroxine Sodium 25 mcg 09/20/21 10:00 09/23/21 05:07 Levothyroxine 25 Mcg Tab PO Not Given QAM@0600 [facility] Linagliptin 5 mg 09/20/21 11:00 09/23/21 08:14 Linagliptin 5 Mg Tab PO Not Given QDDIAB [facility] Naloxone HCl 0.1 mg 09/20/21 08:00 Naloxone 0.4 Mg/1 Ml Inj IV Q2MIN PRN Res Rate </= 8 or 02 SAT < 92% Nifedipine 30 mg 09/20/21 10:00 09/23/21 06:16 Nifedipine Xl 30 Mg Tab PO Not Given Q12HR [facility] Ondansetron HCl 4 mg 09/20/21 08:00 Ondansetron 4 Mg/2 Ml Inj IV Q8H PRN Nausea And Vomiting Oxybutynin Chloride 5 mg 09/20/21 10:00 09/23/21 06:16 Oxybutynin 5 Mg Tab PO Not Given BID [facility] Oxycodone/Acetaminophen 1 tab 09/20/21 09:00 Oxycodone /Acetaminophen 5-325mg Tab PO Q6H PRN Pain, Moderate (4-6) Pantoprazole Sodium 40 mg 09/20/21 10:00 09/23/21 06:16 Pantoprazole 40 Mg Tab PO Not Given DAILY [facility] Senna/Docusate Sodium 2 tab 09/20/21 13:09 Sennosides/Docusate Sodium 8.6/50 Mg Tab PO Q12H PRN Laxative Effect Sodium Chloride 10 ml 09/20/21 10:00 09/23/21 06:16 Sodium Chloride 0.9% 10 Ml Flush Syringe IV Not Given BID [facility] Sodium Chloride 10 ml 09/20/21 08:00 Sodium Chloride 0.9% 10 Ml Flush Syringe IV PRN PRN LINE FLUSH Trazodone HCl 50 mg 09/20/21 22:00 09/22/21 21:30 Trazodone 50 Mg Tab PO Not Given QHS [facility]
[2021-09-23] MEDS: SODIUM FERRIC GLUCON/SUCRO 125 MG in SODIUM CHLORIDE 0.9% 100 ML IV SCH (10:42)
[2021-09-23] MEDS: D5W/0.45% NACL 1,000 ML IV SCH (11:15)
--- NOTE | 2021-09-23 11:30 | Progress Note ---
Assessment and Plan 1. Acute kidney injury: Likely vasomotor [place] in the setting of volume depletion. ATN. Continue IV fluids. Monitor renal function. Avoid nephrotoxic agents. Meds dosage based on GFR. 2. Hypercalcemia, POA: 2/2 abdominal cancer. Elevated PTH; NM parathyroid scan negative. 09/21: s/p Pamidronate. On Calcitonin. Unable to take Cinacalcet. Monitor Calcium level. 3. FEN: Hypernatremia, hypotonic IV fluids, monitor. Replete lytes. Monitor lytes and volume status. 4. Acute metabolic encephalopathy, POA: Monitor. 5. Extensive abdominal cancer, with mets to the liver, POA: Followed by Heme-Onc. 6. Nephrotic syndrome: ?2/2 diabetic nephropathy. 7. History of CVA. 8. DM: SSI. Monitor. 9. Hypertension. 10. Severe protein calorie malnutrition // Failure to thrive. Prognosis is poor. Patient is a DNR/DNI. Family elected for comfort measures. Subjective: Patient was seen and examined at the bedside. Examination: General appearance: well-developed, appears stated age, no distress HEENT: atraumatic Neck: trachea midline Respiratory: ctab Heart: S1S2, regular, no murmur Abdomen: soft, bowel sounds heard, NT Integumentary: no obvious rash Neurologic: stuporous Ext: no edema Subjective Date of service: 09/23/21 Principal diagnosis: AMS, metastatic cancer, UTI, Sepsis Objective - Vital Signs Vital signs: Vital Signs - 12hr 09/22/21 09/22/21 09/22/21 23:30 23:31 23:47 Temperature 98.8 F Pulse Rate 118 H 118 H Pulse Rate [ Apical] Respiratory 18 Rate Blood Pressure 186/84 187/87 O2 Sat by Pulse 96 Oximetry 09/23/21 09/23/21 09/23/21 00:00 00:30 01:00 Temperature Pulse Rate 113 H 114 H 111 H Pulse Rate [ Apical] Respiratory 26 H 23 24 Rate Blood Pressure 186/84 161/76 152/77 O2 Sat by Pulse 95 93 94 Oximetry 09/23/21 09/23/21 09/23/21 01:30 02:00 02:30 Temperature Pulse Rate 114 H 118 H 119 H Pulse Rate [ Apical] Respiratory 23 26 H 25 H Rate Blood Pressure 162/80 186/91 168/82 O2 Sat by Pulse 94 95 97 Oximetry 09/23/21 09/23/21 09/23/21 03:00 03:29 03:30 Temperature Pulse Rate 116 H 116 H 121 H Pulse Rate [ Apical] Respiratory 24 21 Rate Blood Pressure 170/81 170/81 155/87 O2 Sat by Pulse 95 95 Oximetry 09/23/21 09/23/21 09/23/21 03:54 04:00 04:30 Temperature 99.0 F Pulse Rate 122 H 115 H Pulse Rate [ Apical] Respiratory 29 H 24 Rate Blood Pressure 167/83 148/81 O2 Sat by Pulse 95 93 Oximetry 09/23/21 09/23/21 09/23/21 05:00 05:30 06:00 Temperature Pulse Rate 120 H 123 H 118 H Pulse Rate [ Apical] Respiratory 26 H 15 23 Rate Blood Pressure 165/82 178/88 167/78 O2 Sat by Pulse 96 97 95 Oximetry 09/23/21 09/23/21 09/23/21 06:30 07:00 07:30 Temperature Pulse Rate 118 H 118 H 120 H Pulse Rate [ Apical] Respiratory 29 H 25 H 20 Rate Blood Pressure 179/87 161/90 158/89 O2 Sat by Pulse 91 94 94 Oximetry 09/23/21 09/23/21 09/23/21 07:57 08:00 08:13 Temperature 97.6 F Pulse Rate 123 H Pulse Rate [ 122 H Apical] Respiratory 22 Rate Blood Pressure 174/90 O2 Sat by Pulse 98 92 Oximetry 09/23/21 09/23/21 09/23/21 08:30 09:00 09:30 Temperature Pulse Rate 121 H 125 H 117 H Pulse Rate [ Apical] Respiratory 21 30 H 31 H Rate Blood Pressure 177/88 171/90 155/85 O2 Sat by Pulse 94 96 92 Oximetry 09/23/21 09/23/21 09/23/21 10:00 10:30 11:00 Temperature Pulse Rate 118 H 117 H 117 H Pulse Rate [ Apical] Respiratory 32 H 24 33 H Rate Blood Pressure 173/93 175/80 160/82 O2 Sat by Pulse 93 97 95 Oximetry - Lab 09/22/21 05:23 09/23/21 04:32 Most recent lab results Calcium > 13.0 mg/dL (8.4-10.2) H* 09/23/21 04:32 Phosphorus 3.90 mg/dL (2.5-4.5) 09/23/21 04:32 Urine Creatinine 61.8 mg/dL (0.1-20.0) H 09/21/21 05:35 Urine Sodium 21 mmol/L 09/21/21 05:35 Urine Total Protein 576 mg/dL (5-11.8) H 09/21/21 05:35 Medications & Allergies - Medications Allergies/Adverse Reactions: Allergies diphenhydramine [From Benadryl] Allergy (Verified 09/14/21 13:58) Rash/Hives and Sores on Face Home Medications: Home Medications Medication Instructions Recorded Confirmed Last Taken Type AtorvaSTATin [Lipitor] 20 mg PO QHS 09/12/21 09/20/21 Unknown History Fluticasone [Flonase] 1 spray BN DAILY 09/12/21 09/20/21 Unknown History Gabapentin 300 mg PO BID 09/12/21 09/20/21 Unknown History Insulin Aspart [Insulin Aspart 18 unit SQ TID 09/12/21 09/20/21 Unknown History Flexpen] Insulin Glargine,Hum.rec.anlog 45 unit SQ QHS 09/12/21 09/20/21 Unknown History [Lantus Solostar] Levothyroxine [Synthroid] 25 mcg PO QAM 09/12/21 09/20/21 Unknown History Losartan [Cozaar] 100 mg PO QDAY 09/12/21 09/20/21 Unknown History Omeprazole 40 mg PO DAILY 09/12/21 09/20/21 Unknown History Oxybutynin [Ditropan] 5 mg PO BID 09/12/21 09/20/21 Unknown History Saxagliptin HCl [Onglyza] 5 mg PO DAILY 09/12/21 09/20/21 Unknown History allopurinoL [Zyloprim] 100 mg PO QDAY 09/12/21 09/20/21 Unknown History hydrOXYzine PAMOATE [Vistaril] 25 mg PO HS PRN 09/12/21 09/20/21 Unknown History traZODone [Desyrel] 50 mg PO QHS 09/12/21 09/20/21 Unknown History Albuterol Mdi (or & Nicu Only) 1 puff IH Q6H PRN 09/14/21 09/20/21 Unknown History [ProAir HFA Inhaler] Buprenorphine [Butrans] 1 each TD QWEEK 09/14/21 09/20/21 Unknown History Dapagliflozin Propanediol [Farxiga] 5 mg PO QDAY 09/14/21 09/20/21 Unknown History Oxycodone HCl/Acetaminophen 1 each PO Q8H PRN 09/14/21 09/20/21 Unknown History [Percocet 10/325 mg] Aspirin [Aspirin BABY CHEW TAB] 81 mg PO QDAY #30 tab.chew 09/18/21 09/20/21 Unknown Rx Famotidine [Pepcid] 20 mg PO BID #30 tablet 09/18/21 09/20/21 Unknown Rx Hydralazine HCl 50 mg PO Q8H #90 09/18/21 09/20/21 Unknown Rx NIFEdipine XL [Procardia Xl] 30 mg PO Q12HR #60 tablet 09/18/21 09/20/21 Unknown Rx predniSONE [Deltasone] 20 mg PO QDAY #14 tablet 09/18/21 09/20/21 Unknown Rx Active Medications: Generic Name Dose Route Start Last Admin Trade Name Freq PRN Reason Stop Dose Admin Acetaminophen 650 mg 09/20/21 08:00 Acetaminophen 325 Mg Tab PO Q4H PRN Pain MILD(1-3)/Fever >100.5/AMES Acetaminophen 650 mg 09/22/21 21:09 Acetaminophen 650 Mg Rect Supp [place] Q4H PRN Fever >101 Albuterol 2.5 mg 09/20/21 08:00 Albuterol 2.5 Mg/3 Ml Nebu IH Q4HRT PRN Shortness Of Breath Allopurinol 100 mg 09/20/21 10:00 09/23/21 10:27 Allopurinol 100 Mg Tab PO Not Given QDAY [facility] Artificial Tears 2 drops 09/22/21 21:09 Hypromellose 0.5% Ophth Soln 15 Ml OU Q4H PRN Dry Eye(s) Aspirin 81 mg 09/20/21 10:00 09/23/21 10:26 Aspirin 81 Mg Tab Chew PO Not Given QDAY [facility] Atorvastatin Calcium 20 mg 09/20/21 22:00 09/22/21 21:31 Atorvastatin 20 Mg Tab PO Not Given QHS [facility] Calcitonin [place] 400 unit 09/20/21 12:00 09/23/21 10:44 Calcitonin,[place],Synthetic 400 Unit/2 Ml Inj Mdv IM 400 unit Q12HR [facility] Administration Cinacalcet 30 mg 09/20/21 11:00 09/23/21 10:27 Cinacalcet 30 Mg Tab PO Not Given QDAY [facility] Dextrose 50 ml 09/22/21 14:00 09/22/21 17:48 Dextrose 50% In Water (25gm) 50 Ml Syringe IV 15 ml Q30MIN PRN Administration Hypoglycemia Protocol Diphenhydramine HCl 25 mg 09/22/21 21:09 Diphenhydramine 50 Mg/Ml Vial IV Q4H PRN Itching Fluticasone Propionate 50 mcg 09/20/21 10:00 09/23/21 10:45 Fluticasone Propionate Nasal [place] 16 Gm NS Not Given DAILY [facility] Gabapentin 300 mg 09/20/21 10:00 09/23/21 10:27 Gabapentin 300 Mg Cap PO Not Given BID [facility] Glycopyrrolate 0.2 mg 09/22/21 21:09 Glycopyrrolate 0.4 Mg/2 Ml Inj IV Q4H PRN Secretions Hydralazine HCl 10 mg 09/20/21 08:00 09/22/21 23:31 Hydralazine 20 Mg/1 Ml Inj IV 10 mg Q4H PRN Administration Hypertension Hydralazine HCl 20 mg 09/21/21 12:00 09/23/21 03:29 Hydralazine 20 Mg/1 Ml Inj IV 20 mg Q8H [facility] Administration Hydroxyzine Pamoate 25 mg 09/20/21 22:00 Hydroxyzine Pamo[place] 25 Mg Cap PO HS PRN Anxiety Cefepime HCl 2 gm in 100 mls @ 200 mls/hr 09/20/21 18:00 09/23/21 05:07 Cefepime/Ns 2 Gm/100 Ml IV 200 mls/hr Q12H [facility] Administration Protocol Dextrose/Sodium Chloride 1,000 mls @ 75 mls/hr 09/22/21 06:00 09/22/21 21:25 D5/0.45ns IV 75 mls/hr DIRECT [facility] Administration Ferric Sodium Gluconate 110 mls @ 100 mls/hr 09/22/21 18:00 09/23/21 10:42 Complex 125 mg/ Sodium IV 09/24/21 17:59 100 mls/hr Chloride DAILY [facility] Administration Fentanyl Citrate 2,000 mcg in 100 mls @ 3.985 mls/hr 09/22/21 22:00 Fentanyl Drip Premix IV TITR [facility] Protocol 1 MCG/KG/HR Insulin Glargine 25 units 09/21/21 16:07 09/22/21 21:31 Insulin Glargine 100 Units/Ml SUB-Q Not Given QHS [facility] Insulin Human Lispro 0 unit 09/22/21 00:00 09/23/21 06:17 Insulin Lispro 100 Unit/Ml SUB-Q Not Given Q6HR [facility] Protocol Levothyroxine Sodium 25 mcg 09/20/21 10:00 09/23/21 05:07 Levothyroxine 25 Mcg Tab PO Not Given QAM@0600 [facility] Linagliptin 5 mg 09/20/21 11:00 09/23/21 08:14 Linagliptin 5 Mg Tab PO Not Given QDDIAB [facility] Naloxone HCl 0.1 mg 09/20/21 08:00 Naloxone 0.4 Mg/1 Ml Inj IV Q2MIN PRN Res Rate </= 8 or 02 SAT < 92% Nifedipine 30 mg 09/20/21 10:00 09/23/21 10:27 Nifedipine Xl 30 Mg Tab PO Not Given Q12HR [facility] Ondansetron HCl 4 mg 09/20/21 08:00 Ondansetron 4 Mg/2 Ml Inj IV Q8H PRN Nausea And Vomiting Oxybutynin Chloride 5 mg 09/20/21 10:00 09/23/21 10:27 Oxybutynin 5 Mg Tab PO Not Given BID [facility] Oxycodone/Acetaminophen 1 tab 09/20/21 09:00 Oxycodone /Acetaminophen 5-325mg Tab PO Q6H PRN Pain, Moderate (4-6) Pantoprazole Sodium 40 mg 09/20/21 10:00 09/23/21 10:27 Pantoprazole 40 Mg Tab PO Not Given DAILY [facility] Senna/Docusate Sodium 2 tab 09/20/21 13:09 Sennosides/Docusate Sodium 8.6/50 Mg Tab PO Q12H PRN Laxative Effect Sodium Chloride 10 ml 09/20/21 10:00 09/23/21 10:45 Sodium Chloride 0.9% 10 Ml Flush Syringe IV 10 ml BID [facility] Administration Sodium Chloride 10 ml 09/20/21 08:00 Sodium Chloride 0.9% 10 Ml Flush Syringe IV PRN PRN LINE FLUSH Trazodone HCl 50 mg 09/20/21 22:00 09/22/21 21:30 Trazodone 50 Mg Tab PO Not Given QHS [facility]
--- NOTE | 2021-09-23 12:53 | Procedure Note ---
Date of procedure: 09/23/21 Pre-op diagnosis: Gastric cancer Post-op diagnosis: same Procedure: Right femoral vein triple-lumen catheter under ultrasound guidance The patient was prepped and draped in the usual sterile fashion. A timeout was taken with the patient's nurse at bedside to verify the correct patient, correct procedure, and correct operative site. Local anesthesia obtained with 1% lidocaine. The Seldinger technique was utilized to access the right femoral vein under ultrasound guidance without difficulty. A seeker needle was utilized to access the right femoral vein under ultrasound guidance. A guidewire was then advanced through the seeker needle into the right femoral vein and the seeker needle subsequently removed over the guidewire. A scalpel was used to incise the skin. A dilator was then passed over the guidewire into the right femoral vein. A preflush triple-lumen catheter was then advanced into the right femoral vein and the guidewire subsequently removed. All 3 ports flush and draw with ease. 3-0 silk suture was utilized to suture the triple-lumen catheter in place. A Biopatch was placed at the insertion site. Estimated blood loss minimal. Complications none. Anesthesia: local Surgeon: MARCUS MILLS Estimated blood loss: minimal Pathology: none Condition: stable Disposition: other ([facility])
[2021-09-23 13:20] LABS: Vitamin D, 25-OH, D2 8 ng/mL
[2021-09-23] MEDS: hydrALAZINE 20 MG/1 ML INJ IV PRN ×2 (14:33→18:19)
[2021-09-23] MEDS: INSULIN GLARGINE 100 UNITS/ML SUB-Q SCH (21:24)
[2021-09-23] MEDS: traZODone 50 MG TAB PO SCH (21:25)
[2021-09-24] MEDS ORDERED: LIDOCAINE 2% UROJECT 10 ML JELLY ONE (00:24)
[2021-09-24] MEDS: D5W/0.45% NACL 1,000 ML IV SCH ×2 (01:11→13:09)
[2021-09-24] MEDS: hydrALAZINE 20 MG/1 ML INJ IV SCH ×2 (03:31→13:09)
[2021-09-24] MEDS: CEFEPIME/NS 2 GM/100 ML 2 GM/100 ML BAG IV SCH (05:15)
[2021-09-24] MEDS: INSULIN LISPRO 100 UNIT/ML SUB-Q SCH ×3 (05:15→13:10)
[2021-09-24] MEDS: LEVOTHYROXINE 25 MCG TAB PO SCH (05:16)
[2021-09-24 05:31] LABS: BUN/Creatinine Ratio 38; Blood Urea Nitrogen 80 mg/dL (7-17); Hemolysis Index 9
[2021-09-24 05:33] LABS: Calcium > 13.0 mg/dL (8.4-10.2)
[2021-09-24 06:36] LABS: Albumin 2.2 g/dL (3.8-4.8); Gamma Globulin 1.3 g/dL (0.8-1.7)
--- NOTE | 2021-09-24 08:33 | Progress Note ---
Assessment and Plan Assessment and plan: Patient is a 61 year old female with a history of high blood pressure, diabetes, CVA, Abdominal CA s/p Chemotherapy, Hysterectomy, Recently discharged from the hospital following admission for confusion and failure to thrive returns today with complaints of confusion per family. Information was obtained from ED documentation and family due to patients altered mental status. Family reports that her condition had not changed since discharge from the hospital. She did not fill her prescriptions. She during my examination only complains of back pain but could not specify where he was. She was not oriented to person place or time. I did discuss with the who informed me of her history of abdominal cancer although documented also stated that the patient finished chemotherapy within the last year. But could not give me much further information about this. I did notice that the plan for discharge with hospice when asked if this was secondary to concern about end-of-life he said neuro logist for additional resources. He did not report that she had any bladder/bowel retention incontinence and saddle anesthesia. She lives at home with family. Review of last admission records shows no pathology on imaging studies. CT head and chest x-ray also reviewed negative for acute pathology Hospital Course: 09/22: Patient seen and examined very lethargic, I spoke to the son Ori and explained the entire clinical status, which is a grave prognosis. I discussed w ith cardiology they do not think that the patient is a candidate for pacemaker placement. Family is also updated on this. I did discuss with the patient. She is drowsy she verbalized multiple times that she does not want a breathing tube in the event that her heart was to stop. Hypercalcemia persist despite current medication. 09/23: Patient is a DNR/DNI. Family is electing for comfort measures. Dr. Kelley has kindly helped coordinate [employer] pump for patient to go home with. Will work with CM for home hospice arrangements. 09/24: Patient appears to be in mild discomfort this morning. Added dilaudid to medications. Will work with CM for hospice arrangements on Saturday. Assessment and Plan: #Acute metabolic encephalopathy -CT head unremarkable for acute abnormality -Likely secondary to hypercalcemia -We will continue to monitor, if no improvement will consult neurology #Severe hypercalcemia -Calcium greater than 13 -Continue IV fluids, calcitonin and cinacalcet -Nephrology following, assistance appreciated -Continue telemetry #Sinus arrest- prolonged sinus pause #Pauses on telemetry monitoring -Ave blocking agents held -External pacer ordered 40-45bpm for these episodes -Cardiology consulted, assistance appreciated #Acute kidney injury with vasomotor nephropathy -Creatinine last admission 0.9, currently 1.4 -Likely secondary to volume depletion from hypercalcemia -Continue IV fluids -Nephrology following, assistance appreciated #Generalized weakness likely secondary to hypercalcemia #Hyperparathyroidism -Parathyroid scan was negative for adenoma #Leukocytosis -elevated WBC count with neutrophillic predominance -given hypercalcemia, SPEP ordered to rule out MM -with elevated Gamma gap #Hypothyroidism -continue synthroid #Hypernatremia -continue 1/2NS #Diabetes mellitus, insulin dependent -lantus decreased to 25U qhs given now NPO status due to mental state -continue accuchecks -hypoglycemia precautions #Hypertension -continue hydralazine IV and PRN #History of CVA in the past #Severe protein calorie malnutrition -albumin 2.4 -nutrition consult #Failure to thrive -likely sequelae of cancer, volume depletion and hypercalcemia #History of abdominal cancer status post chemotherapy -CT abdomen/pelvis shows peritoneal carcinomatous and hepatic mets -Hematology/Oncology following, assistance appreciated #Advanced care planning -Disease education, care plan, diagnosis, prognosis discussed with next of kin ( Steven Bland) via phone. We discussed goals of care and patient's current clinical status. She was treated for her cancer at [facility] and he was not aware of the type of cancer or prognosis. At this time he would like to continue full CODE STATUS and plans to visit the patient sometime today. Family understands and acknowledges current plan. -Time: +30 minutes History Interval history: Patient seen and evaluated this morning. She appears to be in mild discomfort. Hospitalist Physical - Physical exam Narrative exam: GENERAL: Well-developed well-nourished. None HEENT: Normocephalic. Atraumatic. NECK: Supple. CHEST/LUNGS: CTAB on room air HEART/CARDIOVASCULAR: RRR. No murmur, rubs or gallops appreciated. ABDOMEN: +BS. NT/ND. SKIN: No rashes noted. NEURO:Unable to assess. MUSCULOSKELETAL: No joint effusion EXTREMITIES: No cyanosis, clubbing or edema. PSYCH: Somnolent. - Constitutional Vitals: Temp Pulse Resp BP Pulse Ox 98.2 F 129 H 39 H 168/80 97 09/24/21 04:00 09/24/21 05:00 09/24/21 05:00 09/24/21 05:00 09/24/21 05:00 General appearance: Present: other (AMS not following commands or answering questions) HEART Score - HEART Score Troponin: Troponin T < 0.010 ng/mL (0.00-0.029) 09/20/21 01:44 Results - Labs CBC & Chem 7: 09/22/21 05:23 09/24/21 04:14 Labs: Laboratory Last Values WBC 16.7 K/mm3 (4.5-11.0) H 09/22/21 05:23 RBC 4.94 M/mm3 (3.65-5.03) 09/22/21 05:23 Hgb 12.6 gm/dl (10.1-14.3) 09/22/21 05:23 Hct 40.3 % (30.3-42.9) 09/22/21 05:23 MCV 82 fl (79-97) 09/22/21 05:23 MCH 26 pg (28-32) L 09/22/21 05:23 MCHC 31 % (30-34) 09/22/21 05:23 RDW 15.0 % (13.2-15.2) 09/22/21 05:23 Plt Count 293 K/mm3 (140-440) 09/22/21 05:23 Lymph % (Auto) 6.4 % (13.4-35.0) L 09/21/21 07:27 [place] % (Auto) 10.3 % (0.0-7.3) H 09/21/21 07:27 Eos % (Auto) 0.1 % (0.0-4.3) 09/21/21 07:27 Baso % (Auto) 0.3 % (0.0-1.8) 09/21/21 07:27 Lymph # (Auto) 1.1 K/mm3 (1.2-5.4) L 09/21/21 07:27 [place] # (Auto) 1.7 K/mm3 (0.0-0.8) H 09/21/21 07:27 Eos # (Auto) 0.0 K/mm3 (0.0-0.4) 09/21/21 07:27 Baso # (Auto) 0.1 K/mm3 (0.0-0.1) 09/21/21 07:27 Seg Neutrophils % 82.9 % (40.0-70.0) H 09/21/21 07:27 Seg Neutrophils # 13.8 K/mm3 (1.8-7.7) H 09/21/21 07:27 APTT 27.3 Sec. (24.2-36.6) 09/20/21 01:44 Sodium 157 mmol/L (137-145) H 09/24/21 04:14 Potassium 4.0 mmol/L (3.6-5.0) 09/24/21 04:14 Chloride 124.4 mmol/L (98-107) H 09/24/21 04:14 Carbon Dioxide 22 mmol/L (22-30) 09/24/21 04:14 Anion Gap 15 mmol/L 09/24/21 04:14 BUN 80 mg/dL (7-17) H 09/24/21 04:14 Creatinine 2.1 mg/dL (0.6-1.2) H 09/24/21 04:14 Estimated GFR 29 ml/min 09/24/21 04:14 BUN/Creatinine Ratio 38 % 09/24/21 04:14 Glucose 214 mg/dL (65-100) H 09/24/21 04:14 POC Glucose 175 mg/dL (70-105) H 09/20/21 16:04 Lactic Acid 1.70 mmol/L (0.7-2.0) 09/20/21 01:44 Calcium > 13.0 mg/dL (8.4-10.2) H* 09/24/21 04:14 Ionized Calcium 8.4 mg/dL (4.8-5.6) H* 09/20/21 10:13 Phosphorus 3.90 mg/dL (2.5-4.5) 09/23/21 04:32 Iron 19 ug/dL (37-170) L 09/21/21 07:27 TIBC 148 mcg/dL (250-450) L 09/21/21 07:27 Total Bilirubin 0.50 mg/dL (0.1-1.2) 09/21/21 07:27 AST 84 units/L (5-40) H 09/21/21 07:27 ALT 20 units/L (7-56) 09/21/21 07:27 Alkaline Phosphatase 153 units/L (35-129) H 09/21/21 07:27 Ammonia 28.0 umol/L (25-60) 09/21/21 07:27 Troponin T < 0.010 ng/mL (0.00-0.029) 09/20/21 01:44 Serum Total Protein 6.5 g/dL (6.1-8.1) 09/21/21 07:27 Total Protein 7.3 g/dL (6.3-8.2) 09/21/21 07:27 Albumin 2.2 g/dL (3.8-4.8) L 09/21/21 07:27 Albumin 2.4 g/dL (3.9-5) L 09/21/21 07:27 Albumin/Globulin Ratio 0.5 % 09/21/21 07:27 Xqouj-7-Aqdvqjxcr 0.6 g/dL (0.2-0.3) H 09/21/21 07:27 Apmsi-0-Wxpotmrxb 1.5 g/dL (0.5-0.9) H 09/21/21 07:27 Beta Globulins 0.7 g/dL (0.2-0.5) H 09/21/21 07:27 Gamma Globulins 1.3 g/dL (0.8-1.7) 09/21/21 07:27 Abnorm Protein Band 1 see below 09/21/21 07:27 PEP Interpretation see below H 09/21/21 07:27 25-OH Vitamin D Total 14 ng/mL (30-100) L 09/20/21 10:05 25-Hydroxy Vitamin D2 8 ng/mL 09/20/21 10:05 25-Hydroxy Vitamin D3 6 ng/mL 09/20/21 10:05 TSH 1.400 mlU/mL (0.270-4.200) 09/20/21 07:46 Free T4 1.33 ng/dL (0.76-1.46) 09/20/21 07:46 PTH Intact 310.7 pg/mL (15-65) H 09/20/21 07:46 Urine Color Yellow (Yellow) 09/20/21 04:47 Urine Turbidity Cloudy (Clear) 09/20/21 04:47 Urine pH 6.0 (5.0-7.0) 09/20/21 04:47 Ur Specific [place] 1.011 (1.003-1.030) 09/20/21 04:47 Urine Protein >500 mg/dL (Negative) 09/20/21 04:47 Urine Glucose (UA) 150 mg/dL (Negative) 09/20/21 04:47 Urine Ketones Neg mg/dL (Negative) 09/20/21 04:47 Urine Blood Sm (Negative) 09/20/21 04:47 Urine Nitrite Neg (Negative) 09/20/21 04:47 Urine Bilirubin Neg (Negative) 09/20/21 04:47 Urine Urobilinogen < 2.0 mg/dL (<2.0) 09/20/21 04:47 Ur Leukocyte Esterase Lg (Negative) 09/20/21 04:47 Urine WBC (Auto) 182.0 /HPF (0.0-6.0) H 09/20/21 04:47 Urine RBC (Auto) 13.0 /HPF (0.0-6.0) 09/20/21 04:47 U Epithel Cells (Auto) 2.0 /HPF (0-13.0) 09/20/21 04:47 Urine Bacteria (Auto) 4+ /HPF (Negative) 09/20/21 04:47 Urine WBC Clumps 3+ /HPF 09/20/21 04:47 Hyaline Casts 4 /LPF 09/20/21 04:47 Urine Mucus Few /HPF 09/20/21 04:47 Urine Yeast (Budding) 3+ /HPF 09/20/21 04:47 Urine Creatinine 61.8 mg/dL (0.1-20.0) H 09/21/21 05:35 Protein/Creatinin Ratio 9.32 09/21/21 05:35 Urine Sodium 21 mmol/L 09/21/21 05:35 Urine Total Protein 576 mg/dL (5-11.8) H 09/21/21 05:35 Salicylates < 0.3 mg/dL (2.8-20.0) L 09/20/21 01:44 Urine Opiates Screen Negative 09/20/21 04:47 Urine Methadone Screen Negative 09/20/21 04:47 Acetaminophen 5.0 ug/mL (10.0-30.0) L 09/20/21 01:44 Ur Barbiturates Screen Negative 09/20/21 04:47 Ur Phencyclidine Scrn Negative 09/20/21 04:47 Ur Amphetamines Screen Negative 09/20/21 04:47 U Benzodiazepines Scrn Negative 09/20/21 04:47 Urine Cocaine Screen Negative 09/20/21 04:47 U Marijuana (THC) Screen Negative 09/20/21 04:47 Drugs of Abuse Note Disclamer 09/20/21 04:47 Blood Type B POSITIVE 09/20/21 08:00 Antibody Screen Negative 09/20/21 08:00 Microbiology: Microbiology 09/20/21 07:46 Peripheral/Venous Blood Culture - Preliminary NO GROWTH AFTER 4 DAYS 09/20/21 07:46 Peripheral/Venous Blood Culture - Preliminary NO GROWTH AFTER 4 DAYS Vega/IV: Voiding Method Indwelling Catheter Active Medications - Current Medications Current Medications: Generic Name Dose Route Start Last Admin Trade Name Freq PRN Reason Stop Dose Admin Acetaminophen 650 mg 09/20/21 08:00 Acetaminophen 325 Mg Tab PO Q4H PRN Pain MILD(1-3)/Fever >100.5/AMES Acetaminophen 650 mg 09/22/21 21:09 Acetaminophen 650 Mg Rect Supp [place] Q4H PRN Fever >101 Albuterol 2.5 mg 09/20/21 08:00 Albuterol 2.5 Mg/3 Ml Nebu IH Q4HRT PRN Shortness Of Breath Allopurinol 100 mg 09/20/21 10:00 09/23/21 10:27 Allopurinol 100 Mg Tab PO Not Given QDAY [facility] Artificial Tears 2 drops 09/22/21 21:09 Hypromellose 0.5% Ophth Soln 15 Ml OU Q4H PRN Dry Eye(s) Aspirin 81 mg 09/20/21 10:00 09/23/21 10:26 Aspirin 81 Mg Tab Chew PO Not Given QDAY [facility] Atorvastatin Calcium 20 mg 09/20/21 22:00 09/23/21 21:24 Atorvastatin 20 Mg Tab PO Not Given QHS [facility] Calcitonin [place] 400 unit 09/20/21 12:00 09/23/21 21:24 Calcitonin,[place],Synthetic 400 Unit/2 Ml Inj Mdv IM 400 unit Q12HR [facility] Administration Cinacalcet 30 mg 09/20/21 11:00 09/23/21 10:27 Cinacalcet 30 Mg Tab PO Not Given QDAY [facility] Dextrose 50 ml 09/22/21 14:00 09/22/21 17:48 Dextrose 50% In Water (25gm) 50 Ml Syringe IV 15 ml Q30MIN PRN Administration Hypoglycemia Protocol Diphenhydramine HCl 25 mg 09/22/21 21:09 Diphenhydramine 50 Mg/Ml Vial IV Q4H PRN Itching Fluticasone Propionate 50 mcg 09/20/21 10:00 09/23/21 10:45 Fluticasone Propionate Nasal [place] 16 Gm NS Not Given DAILY [facility] Gabapentin 300 mg 09/20/21 10:00 09/23/21 21:24 Gabapentin 300 Mg Cap PO Not Given BID [facility] Glycopyrrolate 0.2 mg 09/22/21 21:09 Glycopyrrolate 0.4 Mg/2 Ml Inj IV Q4H PRN Secretions Hydralazine HCl 10 mg 09/20/21 08:00 09/23/21 18:19 Hydralazine 20 Mg/1 Ml Inj IV 10 mg Q4H PRN Administration Hypertension Hydralazine HCl 20 mg 09/21/21 12:00 09/24/21 03:31 Hydralazine 20 Mg/1 Ml Inj IV 20 mg Q8H [facility] Administration Hydroxyzine Pamoate 25 mg 09/20/21 22:00 Hydroxyzine Pamoate 25 Mg Cap PO HS PRN Anxiety Cefepime HCl 2 gm in 100 mls @ 200 mls/hr 09/20/21 18:00 09/24/21 05:15 Cefepime/Ns 2 Gm/100 Ml IV 200 mls/hr Q12H [facility] Administration Protocol Dextrose/Sodium Chloride 1,000 mls @ 75 mls/hr 09/22/21 06:00 09/24/21 01:11 D5/0.45ns IV 75 mls/hr DIRECT CAR[facility] Administration Ferric Sodium Gluconate 110 mls @ 100 mls/hr 09/22/21 18:00 09/23/21 11:48 Complex 125 mg/ Sodium IV 09/24/21 17:59 Infused Chloride DAILY [facility] Infusion Fentanyl Citrate 2,000 mcg in 100 mls @ 3.985 mls/hr 09/22/21 22:00 Fentanyl Drip Premix IV TITR [facility] Protocol 1 MCG/KG/HR Insulin Glargine 25 units 09/21/21 16:07 09/23/21 21:24 Insulin Glargine 100 Units/Ml SUB-Q Not Given QHS [facility] Insulin Human Lispro 0 unit 09/22/21 00:00 09/24/21 05:15 Insulin Lispro 100 Unit/Ml SUB-Q Not Given Q6HR [facility] Protocol Levothyroxine Sodium 25 mcg 09/20/21 10:00 09/24/21 05:16 Levothyroxine 25 Mcg Tab PO Not Given QAM@0600 [facility] Linagliptin 5 mg 09/20/21 11:00 09/23/21 08:14 Linagliptin 5 Mg Tab PO Not Given QDDIAB [facility] Naloxone HCl 0.1 mg 09/20/21 08:00 Naloxone 0.4 Mg/1 Ml Inj IV Q2MIN PRN Res Rate </= 8 or 02 SAT < 92% Nifedipine 30 mg 09/20/21 10:00 09/23/21 21:24 Nifedipine Xl 30 Mg Tab PO Not Given Q12HR [facility] Ondansetron HCl 4 mg 09/20/21 08:00 Ondansetron 4 Mg/2 Ml Inj IV Q8H PRN Nausea And Vomiting Oxybutynin Chloride 5 mg 09/20/21 10:00 09/23/21 21:24 Oxybutynin 5 Mg Tab PO Not Given BID [facility] Oxycodone/Acetaminophen 1 tab 09/20/21 09:00 Oxycodone /Acetaminophen 5-325mg Tab PO Q6H PRN Pain, Moderate (4-6) Pantoprazole Sodium 40 mg 09/20/21 10:00 09/23/21 10:27 Pantoprazole 40 Mg Tab PO Not Given DAILY [facility] Senna/Docusate Sodium 2 tab 09/20/21 13:09 Sennosides/Docusate Sodium 8.6/50 Mg Tab PO Q12H PRN Laxative Effect Sodium Chloride 10 ml 09/20/21 10:00 09/23/21 21:24 Sodium Chloride 0.9% 10 Ml Flush Syringe IV 10 ml BID [facility] Administration Sodium Chloride 10 ml 09/20/21 08:00 Sodium Chloride 0.9% 10 Ml Flush Syringe IV PRN PRN LINE FLUSH Trazodone HCl 50 mg 09/20/21 22:00 09/23/21 21:25 Trazodone 50 Mg Tab PO Not Given QHS [facility]
[2021-09-24] MEDS: CALCITONIN,SALMON,SYNTHETIC 400 UNIT/2 ML INJ MDV IM SCH (10:17)
[2021-09-24] MEDS: SODIUM FERRIC GLUCON/SUCRO 125 MG in SODIUM CHLORIDE 0.9% 100 ML IV SCH (10:17)
[2021-09-24] MEDS: OXYBUTYNIN 5 MG TAB PO SCH (10:18)
[2021-09-24] MEDS: GABAPENTIN 300 MG CAP PO SCH (10:18)
[2021-09-24] MEDS: ASPIRIN 81 MG TAB CHEW PO SCH (10:18)
[2021-09-24] MEDS: LINAGLIPTIN 5 MG TAB PO SCH (10:18)
[2021-09-24] MEDS: NIFEdipine XL 30 MG TAB PO SCH (10:19)
[2021-09-24] MEDS: CINACALCET 30 MG TAB PO SCH (10:19)
[2021-09-24] MEDS: PANTOPRAZOLE 40 MG TAB PO SCH (10:19)
--- NOTE | 2021-09-24 11:18 | Progress Note ---
Assessment and Plan 1. Acute kidney injury: Likely vasomotor [place] in the setting of volume depletion. ATN. IV fluids. Monitor renal function. Creatinine level increasing. Avoid nephrotoxic agents. Meds dosage based on GFR. 2. Hypercalcemia, POA: 2/2 abdominal cancer. Elevated PTH; NM parathyroid scan negative. 09/21: s/p Pamidronate. On Calcitonin. Monitor Calcium level. 3. FEN: Hypernatremia, hypotonic IV fluids, monitor. Replete lytes. Monitor lytes and volume status. 4. Acute metabolic encephalopathy, POA: Monitor. 5. Extensive abdominal cancer, with mets to the liver, POA: Followed by Heme-Onc. 6. Nephrotic syndrome: ?2/2 diabetic nephropathy. 7. History of CVA. 8. DM: SSI. Monitor. 9. Hypertension. 10. Severe protein calorie malnutrition // Failure to thrive. Prognosis is poor. Patient is a DNR/DNI. Family elected for comfort measures. Subjective: Patient was seen and examined at the bedside. Examination: General appearance: well-developed, appears stated age, no distress HEENT: atraumatic Neck: trachea midline Respiratory: ctab Heart: S1S2, regular, no murmur Abdomen: soft, bowel sounds heard, NT Integumentary: no obvious rash Neurologic: stuporous Ext: no edema Subjective Date of service: 09/24/21 Principal diagnosis: AMS, metastatic cancer, UTI, Sepsis Objective - Vital Signs Vital signs: Vital Signs - 12hr 09/24/21 09/24/21 09/24/21 00:00 01:00 02:00 Temperature 98.6 F Pulse Rate 136 H 130 H 136 H Respiratory 18 39 H 27 H Rate Blood Pressure 153/78 157/70 156/80 O2 Sat by Pulse 98 97 97 Oximetry 09/24/21 09/24/21 09/24/21 03:00 03:31 04:00 Temperature 98.2 F Pulse Rate 131 H 131 H 134 H Respiratory 41 H 28 H Rate Blood Pressure 141/83 141/83 147/81 O2 Sat by Pulse 95 98 Oximetry 09/24/21 09/24/21 05:00 08:00 Temperature 98.2 F Pulse Rate 129 H Respiratory 39 H Rate Blood Pressure 168/80 O2 Sat by Pulse 97 Oximetry - Lab 09/22/21 05:23 09/24/21 04:14 Most recent lab results Calcium > 13.0 mg/dL (8.4-10.2) H* 09/24/21 04:14 Phosphorus 3.90 mg/dL (2.5-4.5) 09/23/21 04:32 Urine Creatinine 61.8 mg/dL (0.1-20.0) H 09/21/21 05:35 Urine Sodium 21 mmol/L 09/21/21 05:35 Urine Total Protein 576 mg/dL (5-11.8) H 09/21/21 05:35 Medications & Allergies - Medications Allergies/Adverse Reactions: Allergies diphenhydramine [From Benadryl] Allergy (Verified 09/14/21 13:58) Rash/Hives and Sores on Face Home Medications: Home Medications Medication Instructions Recorded Confirmed Last Taken Type AtorvaSTATin [Lipitor] 20 mg PO QHS 09/12/21 09/20/21 Unknown History Fluticasone [Flonase] 1 spray BN DAILY 09/12/21 09/20/21 Unknown History Gabapentin 300 mg PO BID 09/12/21 09/20/21 Unknown History Insulin Aspart [Insulin Aspart 18 unit SQ TID 09/12/21 09/20/21 Unknown History Flexpen] Insulin Glargine,Hum.rec.anlog 45 unit SQ QHS 09/12/21 09/20/21 Unknown History [Lantus Solostar] Levothyroxine [Synthroid] 25 mcg PO QAM 09/12/21 09/20/21 Unknown History Losartan [Cozaar] 100 mg PO QDAY 09/12/21 09/20/21 Unknown History Omeprazole 40 mg PO DAILY 09/12/21 09/20/21 Unknown History Oxybutynin [Ditropan] 5 mg PO BID 09/12/21 09/20/21 Unknown History Saxagliptin HCl [Onglyza] 5 mg PO DAILY 09/12/21 09/20/21 Unknown History allopurinoL [Zyloprim] 100 mg PO QDAY 09/12/21 09/20/21 Unknown History hydrOXYzine PAMOATE [Vistaril] 25 mg PO HS PRN 09/12/21 09/20/21 Unknown History traZODone [Desyrel] 50 mg PO QHS 09/12/21 09/20/21 Unknown History Albuterol Mdi (or & Nicu Only) 1 puff IH Q6H PRN 09/14/21 09/20/21 Unknown History [ProAir HFA Inhaler] Buprenorphine [Butrans] 1 each TD QWEEK 09/14/21 09/20/21 Unknown History Dapagliflozin Propanediol [Farxiga] 5 mg PO QDAY 09/14/21 09/20/21 Unknown History Oxycodone HCl/Acetaminophen 1 each PO Q8H PRN 09/14/21 09/20/21 Unknown History [Percocet 10/325 mg] Aspirin [Aspirin BABY CHEW TAB] 81 mg PO QDAY #30 tab.chew 09/18/21 09/20/21 Unknown Rx Famotidine [Pepcid] 20 mg PO BID #30 tablet 09/18/21 09/20/21 Unknown Rx Hydralazine HCl 50 mg PO Q8H #90 09/18/21 09/20/21 Unknown Rx NIFEdipine XL [Procardia Xl] 30 mg PO Q12HR #60 tablet 09/18/21 09/20/21 Unknown Rx predniSONE [Deltasone] 20 mg PO QDAY #14 tablet 09/18/21 09/20/21 Unknown Rx Active Medications: Generic Name Dose Route Start Last Admin Trade Name Freq PRN Reason Stop Dose Admin Acetaminophen 650 mg 09/20/21 08:00 Acetaminophen 325 Mg Tab PO Q4H PRN Pain MILD(1-3)/Fever >100.5/AMES Acetaminophen 650 mg 09/22/21 21:09 Acetaminophen 650 Mg Rect Supp [place] Q4H PRN Fever >101 Albuterol 2.5 mg 09/20/21 08:00 Albuterol 2.5 Mg/3 Ml Nebu IH Q4HRT PRN Shortness Of Breath Allopurinol 100 mg 09/20/21 10:00 09/23/21 10:27 Allopurinol 100 Mg Tab PO Not Given QDAY [facility] Artificial Tears 2 drops 09/22/21 21:09 Hypromellose 0.5% Ophth Soln 15 Ml OU Q4H PRN Dry Eye(s) Aspirin 81 mg 09/20/21 10:00 09/24/21 10:18 Aspirin 81 Mg Tab Chew PO Not Given QDAY CAR[facility] Atorvastatin Calcium 20 mg 09/20/21 22:00 09/23/21 21:24 Atorvastatin 20 Mg Tab PO Not Given QHS [facility] Calcitonin [place] 400 unit 09/20/21 12:00 09/24/21 10:17 Calcitonin,[place],Synthetic 400 Unit/2 Ml Inj Mdv IM 400 unit Q12HR [facility] Administration Cinacalcet 30 mg 09/20/21 11:00 09/24/21 10:19 Cinacalcet 30 Mg Tab PO Not Given QDAY [facility] Dextrose 50 ml 09/22/21 14:00 09/22/21 17:48 Dextrose 50% In Water (25gm) 50 Ml Syringe IV 15 ml Q30MIN PRN Administration Hypoglycemia Protocol Diphenhydramine HCl 25 mg 09/22/21 21:09 Diphenhydramine 50 Mg/Ml Vial IV Q4H PRN Itching Fluticasone Propionate 50 mcg 09/20/21 10:00 09/23/21 10:45 Fluticasone Propionate Nasal [place] 16 Gm NS Not Given DAILY [facility] Gabapentin 300 mg 09/20/21 10:00 09/24/21 10:18 Gabapentin 300 Mg Cap PO Not Given BID [facility] Glycopyrrolate 0.2 mg 09/22/21 21:09 Glycopyrrolate 0.4 Mg/2 Ml Inj IV Q4H PRN Secretions Hydralazine HCl 10 mg 09/20/21 08:00 09/23/21 18:19 Hydralazine 20 Mg/1 Ml Inj IV 10 mg Q4H PRN Administration Hypertension Hydralazine HCl 20 mg 09/21/21 12:00 09/24/21 03:31 Hydralazine 20 Mg/1 Ml Inj IV 20 mg Q8H [facility] Administration Hydroxyzine Pamoate 25 mg 09/20/21 22:00 Hydroxyzine Pamo[place] 25 Mg Cap PO HS PRN Anxiety Cefepime HCl 2 gm in 100 mls @ 200 mls/hr 09/20/21 18:00 09/24/21 05:15 Cefepime/Ns 2 Gm/100 Ml IV 200 mls/hr Q12H [facility] Administration Protocol Dextrose/Sodium Chloride 1,000 mls @ 75 mls/hr 09/22/21 06:00 09/24/21 01:11 D5/0.45ns IV 75 mls/hr DIRECT CAR[facility] Administration Ferric Sodium Gluconate 110 mls @ 100 mls/hr 09/22/21 18:00 09/24/21 10:17 Complex 125 mg/ Sodium IV 09/24/21 17:59 100 mls/hr Chloride DAILY [facility] Administration Fentanyl Citrate 2,000 mcg in 100 mls @ 3.985 mls/hr 09/22/21 22:00 Fentanyl Drip Premix IV TITR [facility] Protocol 1 MCG/KG/HR Insulin Glargine 25 units 09/21/21 16:07 09/23/21 21:24 Insulin Glargine 100 Units/Ml SUB-Q Not Given QHS [facility] Insulin Human Lispro 0 unit 09/22/21 00:00 09/24/21 05:15 Insulin Lispro 100 Unit/Ml SUB-Q Not Given Q6HR [facility] Protocol Levothyroxine Sodium 25 mcg 09/20/21 10:00 09/24/21 05:16 Levothyroxine 25 Mcg Tab PO Not Given QAM@0600 [facility] Linagliptin 5 mg 09/20/21 11:00 09/24/21 10:18 Linagliptin 5 Mg Tab PO Not Given QDDIAB [facility] Naloxone HCl 0.1 mg 09/20/21 08:00 Naloxone 0.4 Mg/1 Ml Inj IV Q2MIN PRN Res Rate </= 8 or 02 SAT < 92% Nifedipine 30 mg 09/20/21 10:00 09/24/21 10:19 Nifedipine Xl 30 Mg Tab PO Not Given Q12HR [facility] Ondansetron HCl 4 mg 09/20/21 08:00 Ondansetron 4 Mg/2 Ml Inj IV Q8H PRN Nausea And Vomiting Oxybutynin Chloride 5 mg 09/20/21 10:00 09/24/21 10:18 Oxybutynin 5 Mg Tab PO Not Given BID [facility] Oxycodone/Acetaminophen 1 tab 09/20/21 09:00 Oxycodone /Acetaminophen 5-325mg Tab PO Q6H PRN Pain, Moderate (4-6) Pantoprazole Sodium 40 mg 09/20/21 10:00 09/24/21 10:19 Pantoprazole 40 Mg Tab PO Not Given DAILY [facility] Senna/Docusate Sodium 2 tab 09/20/21 13:09 Sennosides/Docusate Sodium 8.6/50 Mg Tab PO Q12H PRN Laxative Effect Sodium Chloride 10 ml 09/20/21 10:00 09/23/21 21:24 Sodium Chloride 0.9% 10 Ml Flush Syringe IV 10 ml BID [facility] Administration Sodium Chloride 10 ml 09/20/21 08:00 Sodium Chloride 0.9% 10 Ml Flush Syringe IV PRN PRN LINE FLUSH Trazodone HCl 50 mg 09/20/21 22:00 09/23/21 21:25 Trazodone 50 Mg Tab PO Not Given QHS [facility]
[2021-09-24] MEDS ORDERED: HYDROmorphone 1 MG/1 ML INJ IV PRN (12:29)
--- NOTE | 2021-09-24 14:17 | Death Summary ---
Summary - Providers Consults: 09/20/21 05:03 Consult to Physician [CONS] Stat Comment: Consulting Provider: TATA GARCIA Physician Instructions: Reason For Exam: Hypercalcemia //[id number] 09/20/21 13:14 Consult to Physician [CONS] Routine Comment: Consulting Provider: SALLY OLSON Physician Instructions: Reason For Exam: metastatic CA with Hypercalcemia 09/21/21 11:31 Consult to Physician [CONS] Urgent Comment: Consulting Provider: STEFANI SALVADOR Physician Instructions: Reason For Exam: Pauses on telemetry Attending: GIOVANNI GAMEZ MD - summary Date of admission: 09/20/21 07:30 Date of : 09/24/21 - Final diagnosis (1) Cardiac arrest Note: Final diagnosis: Assessment and plan: Patient is a 61 year old female with a history of high blood pressure, diabetes, CVA, Abdominal CA s/p Chemotherapy, Hysterectomy, Recently discharged from the hospital following admission for confusion and failure to thrive returns today with complaints of confusion per family. Information was obtained from ED documentation and family due to patients altered mental status. Family reports that her condition had not changed since discharge from the hospital. She did not fill her prescriptions. She during my examination only complains of back pain but could not specify where he was. She was not oriented to person place or time. I did discuss with the who informed me of her history of abdominal cancer although documented also stated that the patient finished chemotherapy within the last year. But could not give me much further information about this. I did notice that the plan for discharge with hospice when asked if this was secondary to concern about end-of-life he said neur ologist for additional resources. He did not report that she had any bladder/bowel retention incontinence and saddle anesthesia. She lives at home with family. Review of last admission records shows no pathology on imaging studies. CT head and chest x-ray also reviewed negative for acute pathology Hospital Course: 09/22: Patient seen and examined very lethargic, I spoke to the son Ori and explained the entire clinical status, which is a grave prognosis. I discussed with cardiology they do not think that the patient is a candidate for pacemaker placement. Family is also updated on this. I did discuss with the patient. She is drowsy she verbalized multiple times that she does not want a breathing tube in the event that her heart was to stop. Hypercalcemia persist despite current medication. 09/23: Patient is a DNR/DNI. Family is electing for comfort measures. Dr. Kelley has kindly helped coordinate [employer] pump for patient to go home with. Will work with CM for home hospice arrangements. 09/24: Patient appears to be in mild discomfort this morning. Added dilaudid to medications. Will work with CM for hospice arrangements on Saturday. 09/24: Paged by RN about asystole on monitor. No aggerssive measures as patient is a DNR/AND. Son (Ori) notified by attending physician. Asystole at 1408. Pronounced at 1412. Assessment and Plan: #Acute metabolic encephalopathy -CT head unremarkable for acute abnormality -Likely secondary to hypercalcemia -We will continue to monitor, if no improvement will consult neurology #Severe hypercalcemia -Calcium greater than 13 -Continue IV fluids, calcitonin and cinacalcet -Nephrology following, assistance appreciated -Continue telemetry #Sinus arrest- prolonged sinus pause #Pauses on telemetry monitoring -Ave blocking agents held -External pacer ordered 40-45bpm for these episodes -Cardiology consulted, assistance appreciated #Acute kidney injury with vasomotor nephropathy -Creatinine last admission 0.9, currently 1.4 -Likely secondary to volume depletion from hypercalcemia -Continue IV fluids -Nephrology following, assistance appreciated #Generalized weakness likely secondary to hypercalcemia #Hyperparathyroidism -Parathyroid scan was negative for adenoma #Leukocytosis -elevated WBC count with neutrophillic predominance -given hypercalcemia, SPEP ordered to rule out MM -with elevated Gamma gap #Hypothyroidism -continue synthroid #Hypernatremia -continue 1/2NS #Diabetes mellitus, insulin dependent -lantus decreased to 25U qhs given now NPO status due to mental state -continue accuchecks -hypoglycemia precautions #Hypertension -continue hydralazine IV and PRN #History of CVA in the past #Severe protein calorie malnutrition -albumin 2.4 -nutrition consult #Failure to thrive -likely sequelae of cancer, volume depletion and hypercalcemia #History of abdominal cancer status post chemotherapy -CT abdomen/pelvis shows peritoneal carcinomatous and hepatic mets -Hematology/Oncology following, assistance appreciated #Advanced care planning -Disease education, care plan, diagnosis, prognosis discussed with next of kin ( Steven Bland) via phone. We discussed goals of care and patient's current clinical status. She was treated for her cancer at [facility] and he was not aware of the type of cancer or prognosis. At this time he would like to continue full CODE STATUS and plans to visit the patient sometime today. Family understands and acknowledges current plan. -Time: +30 minutes (2) Metastatic cancer Note: Final diagnosis: (3) Acute metabolic encephalopathy Note: Final diagnosis:
--- NOTE | 2021-09-24 14:42 | Death Note ---
Note Date of : 09/24/21 Time of : 14:08 Time Pronounced: 14:10 - Preliminary Cause of (problem) (1) Cardiac arrest Preliminary cause of (2) Metastatic cancer Preliminary cause of (3) Acute metabolic encephalopathy Preliminary cause of
[2021-09-24 14:48] VITALS: BP 82/44
== END 2021-09-24 14:08 | DRG 70 ==
LOC: ED 00:55 → 3A 07:30 → 4A 09-21 15:43 → IMCU 09-21 18:58
PROVIDERS: ADMIT Internal Medicine; ATTEND Internal Medicine
PROC: 06HY33Z Insertion of Infusion Device into Lower Vein, Percutaneous Approach (ICD-10-PCS; principal; 2021-09-23)
PROC: B54BZZA Ultrasonography of Right Lower Extremity Veins, Guidance (ICD-10-PCS; 2021-09-23)
DX: G93.41 Metabolic encephalopathy (principal); N17.0 Acute kidney failure with tubular necrosis; E43 Unspecified severe protein-calorie malnutrition; N30.90 Cystitis, unspecified without hematuria; E21.0 Primary hyperparathyroidism; Z66 Do not resuscitate; Z68.27 Body mass index [BMI] 27.0-27.9, adult; E86.0 Dehydration; E78.5 Hyperlipidemia, unspecified; C76.2 Malignant neoplasm of abdomen; C78.7 Secondary malignant neoplasm of liver and intrahepatic bile duct; R62.7 Adult failure to thrive; E87.0 Hyperosmolality and hypernatremia; E87.6 Hypokalemia; E21.3 Hyperparathyroidism, unspecified; E03.9 Hypothyroidism, unspecified; I46.9 Cardiac arrest, cause unspecified; Z85.9 Personal history of malignant neoplasm, unspecified; Z88.8 Allergy status to other drugs, medicaments and biological substances; Z79.4 Long term (current) use of insulin; Z86.73 Personal history of transient ischemic attack (TIA), and cerebral infarction without residual deficits; Z90.710 Acquired absence of both cervix and uterus; Z79.82 Long term (current) use of aspirin; Z79.899 Other long term (current) drug therapy
CPT/HCPCS: 36415; 70450; 71045; 74176; 76770; 78070; 80048; 80053; 80307; 80320; 81001; 82140; 82306; 82310; 82330; 82570; 82962; 83550; 83970; 84100; 84156; 84165; 84300; 84439; 84443; 84484; 85025; 85027; 85730; 86850; 86900; 86901; 87040; 87076; 87086; 87186; 93005; 93306; 94760; G0378; J3490; J7070; Q0162; Q9967; A9500; C8929; G0480; J0360; J0630; J0692; J1170; J1815; J2060; J2430; J2916; J3480; J7030